=== PATIENT | female | born 1940 | race Two or more races ===

== ENCOUNTER → 2017-02-13 | Outpatient (CLI) | payer OTHER ==
[~2017-02-13] MED LIST: LISIPOW XX; PANT1INJ3 PO; SUCR1TAB36 PO
[2017-02-13 09:38] LABS: Basophils # (auto) 0 uL; Basophils % (auto) 0.7 % (0.0-2.0); Eosinophils # (auto) 0.1 uL; Eosinophils % (auto) 2.9 % (0.0-7.0); Hematocrit 37.5 % (36.0-46.0); Hemoglobin 12.6 g/dL (12.2-16.2); Lymphocytes # (auto) 2.3 uL; Lymphocytes % (auto) 45.8 % (10.0-50.0); Mean Corpuscular Hemoglobin 31.6 pg (28.0-32.0); Mean Corpuscular Hgb Conc. 33.7 g/dL (32.0-36.0); Mean Corpuscular Volume 93.9 fL (80.0-100.0); Monocytes # (auto) 0.4 uL; Neutrophils # (auto) 2.2 uL; Neutrophils % (auto) 43.6 % (37.0-80.0); Platelet Count (auto) 271 10^3/uL (140-450); Red Cell Distribution Width 12.9 % (11.6-16.0)
[2017-02-13 09:45] LABS: Urine Bilirubin Negative (Negative); Urine Blood Negative /uL (Negative); Urine Color Yellow (Yellow); Urine Glucose Normal (Normal); Urine Ketone Negative (Negative); Urine Nitrite Negative (Negative); Urine RBC <1 /hpf (0 - 4); Urine Urobilinogen Normal (Negative); Urine pH 7.5 (5.0-8.0)
[2017-02-13 10:14] LABS: Albumin 3.8 g/dL (3.4-5.0); Bilirubin, Total 0.4 mg/dL (0.2-1.0); Calcium 9.2 mg/dL (8.5-10.1); Potassium 3.9 mmol/L (3.5-5.1); Total Protein 7.7 g/dL (6.4-8.2)
== END | disposition home or self-care (01) ==
LOC: LAB 08:52
PROVIDERS: ATTEND Internal Medicine
DX: R73.03 Prediabetes (principal); I10 Essential (primary) hypertension
CPT/HCPCS: 36415; 80053; 80061; 81001; 82043; 82607; 83036; 84439; 84443; 85025; 85652

== ENCOUNTER 2017-03-08 06:10 | Day surgery (SDC) | payer OTHER ==
[2017-03-03 09:56] LABS: Urine RBC None Seen /hpf (0 - 4)
[2017-03-03 10:01] LABS: Basophils # (auto) 0 uL; Basophils % (auto) 0.7 % (0.0-2.0); Eosinophils # (auto) 0.1 uL; Eosinophils % (auto) 1.4 % (0.0-7.0); Hematocrit 38.5 % (36.0-46.0); Lymphocytes # (auto) 1.8 uL; Lymphocytes % (auto) 32.5 % (10.0-50.0); Mean Corpuscular Hemoglobin 31.4 pg (28.0-32.0); Mean Corpuscular Hgb Conc. 33.8 g/dL (32.0-36.0); Mean Platelet Volume 8.6 fL (7.4-10.4); Monocytes # (auto) 0.4 uL; Monocytes % (auto) 6.2 % (0.0-12.0); Neutrophils # (auto) 3.4 uL; Neutrophils % (auto) 59.2 % (37.0-80.0); Platelet Count (auto) 296 10^3/uL (140-450); Red Cell Distribution Width 12.5 % (11.6-16.0); White Blood Cell 5.7 10^3/uL (4.4-10.8)
[2017-03-03 10:14] LABS: Urine Bilirubin Negative (Negative); Urine Blood Negative /uL (Negative); Urine Color Yellow (Yellow); Urine Glucose Normal (Normal); Urine Ketone Negative (Negative); Urine Nitrite Negative (Negative); Urine Squamous Epithelial Cell FEW /hpf (<5); Urine Urobilinogen Normal (Negative)
[2017-03-03 10:15] LABS: INR 0.94 (0.9-1.15); Partial Thromboplastin Time 27.3 sec (22.64-33.71); Prothrombin Time 10.2 sec (9.37-12.3)
[2017-03-03 10:24] LABS: BUN/Creatinine Ratio 22.4; Bilirubin, Total 0.5 mg/dL (0.2-1.0); Calcium 9.2 mg/dL (8.5-10.1); Potassium 3.9 mmol/L (3.5-5.1)
[~2017-03-08] VITALS: Ht 157.5 cm; Wt 64.4 kg
[~2017-03-08 06:10] MED LIST changes: +CARB25TA22 PO; +LISI-706 PO; -LISIPOW XX; +OMEP20CA74 OR; -PANT1INJ3 PO; -SUCR1TAB36 PO
[2017-03-08] MEDS ORDERED: BUPIVACAINE 0.75% INJ 10ML MPV SDV IJ ONE (06:51)
[2017-03-08] MEDS ORDERED: NEOMYCIN-BACITRACIN-POLYM 15GM TOP OINT TOP ONE (06:52)
[2017-03-08] MEDS ORDERED: ROPIVACAINE 0.5% (5MG/ML) 20ML AMPULE IJ ONE (06:52)
[2017-03-08] MEDS ORDERED: methylPREDNISolone ACETATE 80 MG/ML VL ONE (06:52)
[2017-03-08] MEDS ORDERED: ONDANSETRON HCL 4 MG/2 ML VIAL ONE (06:53)
[2017-03-08] MEDS ORDERED: PROPOFOL 10 MG/ML 20 ML IV ONE (06:53)
[2017-03-08] MEDS ORDERED: fentaNYL CITRATE 100 MCG/2 ML VL ONE (06:53)
[2017-03-08] MEDS ORDERED: MIDAZOLAM HCL 1MG/1ML-2 ML VIAL ONE (06:53)
[2017-03-08] MEDS ORDERED: SODIUM CHLORIDE LOCK 20 ML ONE (06:53)
[2017-03-08] MEDS ORDERED: ceFAZolin 1GM/50ML D5W 50 ML IV ONE (07:13)
[2017-03-08] MEDS ORDERED: ONDANSETRON HCL 4 MG/2 ML VIAL IV ONE (07:15)
[2017-03-08] MEDS ORDERED: KETOROLAC TROMETH 30 MG/ML 1ML VIAL IV ONE (07:15)
[2017-03-08 08:32] VITALS: BP 163/81
== END 2017-03-08 08:42 | disposition home or self-care (01) ==
LOC: SUR 06:10
PROVIDERS: ATTEND Podiatrist Foot & Ankle Surgery
DX: D21.21 Benign neoplasm of connective and other soft tissue of right lower limb, including hip (principal); K21.9 Gastro-esophageal reflux disease without esophagitis; Z90.710 Acquired absence of both cervix and uterus; I10 Essential (primary) hypertension; G20 Parkinson's disease
CPT/HCPCS: 27619; 36415; 80053; 81001; 85025; 85610; 85730; 88305; 88341; 88342; 88360; J0690; J2250; J2405; J2704; J3010; J3490; L3260; Q4139

== ENCOUNTER → 2017-07-05 | Outpatient (CLI) | payer OTHER ==
[2017-07-05 13:50] LABS: Basophils # (auto) 0.1 uL; Basophils % (auto) 0.9 % (0.0-2.0); Eosinophils # (auto) 0.1 uL; Eosinophils % (auto) 1.2 % (0.0-7.0); Hematocrit 37.3 % (36.0-46.0); Hemoglobin 12.9 g/dL (12.2-16.2); Lymphocytes # (auto) 2.3 uL; Lymphocytes % (auto) 38.6 % (10.0-50.0); Mean Corpuscular Hemoglobin 32.9 pg (28.0-32.0); Mean Corpuscular Hgb Conc. 34.6 g/dL (32.0-36.0); Mean Corpuscular Volume 95.1 fL (80.0-100.0); Mean Platelet Volume 7.4 fL (6.9-10.8); Monocytes # (auto) 0.5 uL; Monocytes % (auto) 8.2 % (0.0-12.0); Neutrophils # (auto) 3.1 uL; Neutrophils % (auto) 51.1 % (37.0-80.0); Platelet Count (auto) 282 10^3/uL (140-450); Red Cell Distribution Width 12.4 % (11.8-14.3); White Blood Cell 6.1 10^3/uL (4.4-10.8)
[2017-07-05 14:58] LABS: Albumin 4.2 g/dL (3.4-5.0); BUN/Creatinine Ratio 12.9; Bilirubin, Total 0.5 mg/dL (0.2-1.0); Potassium 3.9 mmol/L (3.5-5.1); Total Protein 8.1 g/dL (6.4-8.2)
== END | disposition home or self-care (01) ==
LOC: LAB 13:34
PROVIDERS: ATTEND Internal Medicine
DX: R10.9 Unspecified abdominal pain (principal)
CPT/HCPCS: 36415; 80053; 85025; 86141

== ENCOUNTER 2017-07-06 13:57 | Emergency (ER) | payer OTHER ==
[~2017-07-06] VITALS: Ht 157.5 cm; Wt 70.3 kg
[2017-07-06] MEDS ORDERED: ONDANSETRON HCL 4 MG/2 ML VIAL IV ONE (14:45)
[2017-07-06 14:53] LABS: Basophils # (auto) 0 uL; Basophils % (auto) 0.4 % (0.0-2.0); Eosinophils # (auto) 0 uL; Eosinophils % (auto) 0.3 % (0.0-7.0); Hematocrit 37.2 % (36.0-46.0); Hemoglobin 13.1 g/dL (12.2-16.2); Lymphocytes # (auto) 1.5 uL; Lymphocytes % (auto) 21.3 % (10.0-50.0); Mean Corpuscular Hgb Conc. 35.3 g/dL (32.0-36.0); Mean Corpuscular Volume 93.6 fL (80.0-100.0); Mean Platelet Volume 8.2 fL (6.9-10.8); Monocytes # (auto) 0.5 uL; Neutrophils # (auto) 5.1 uL; Nucleated Red Blood Cells % 0.1 %; Platelet Count (auto) 290 10^3/uL (140-450); Red Cell Distribution Width 12.5 % (11.8-14.3); White Blood Cell 7.2 10^3/uL (4.4-10.8)
[2017-07-06 14:57] LABS: Albumin 4.1 g/dL (3.4-5.0); Anion Gap 9 (5-15); Aspartate Aminotransferase 26 U/L (15-37); BUN/Creatinine Ratio 17.6; Blood Urea Nitrogen 16 mg/dL (7-18); Calcium 8.9 mg/dL (8.5-10.1); Carbon Dioxide 25 mmol/L (21-32); Chloride 92 mmol/L (98-107); GFR African American 77 mL/min; GFR Non-African American 64 mL/min; Glucose 104 mg/dL (74-106); Potassium 3.9 mmol/L (3.5-5.1); Sodium 126 mmol/L (136-145)
[2017-07-06 15:02] LABS: Alkaline Phosphatase 78 U/L (45-117); Bilirubin, Total 0.4 mg/dL (0.2-1.0)
[2017-07-06 15:18] LABS: Urine Bilirubin Negative (Negative); Urine Blood Negative /uL (Negative); Urine Color Yellow (Yellow); Urine Glucose Normal (Normal); Urine Ketone Negative (Negative); Urine Nitrite Negative (Negative); Urine RBC 1 /hpf (0 - 4); Urine Squamous Epithelial Cell FEW /hpf (<5); Urine Urobilinogen Normal (Negative)
[2017-07-06] MEDS ORDERED: SODIUM CHLORIDE 0.9% 1,000 ML IV ONE (15:30)
[2017-07-06] MEDS ORDERED: PANTOPRAZOLE 40 MG/10 ML VIAL IV ONE (16:30)
[2017-07-06 17:00] VITALS: BP 149/75
[2017-07-09] MEDS ORDERED: ATOR10TA52 PO (19:35)
[2017-07-10] MEDS ORDERED: OMEG1CAP59 PO (14:26)
[2017-07-10] MEDS ORDERED: MULT-228 PO (14:26)
== END 2017-07-06 16:37 | disposition home or self-care (01) ==
LOC: ER 13:57
DX: K21.9 Gastro-esophageal reflux disease without esophagitis (principal); I10 Essential (primary) hypertension; Z88.2 Allergy status to sulfonamides; Z88.6 Allergy status to analgesic agent; Z90.710 Acquired absence of both cervix and uterus; Z90.89 Acquired absence of other organs
CPT/HCPCS: 36415; 74176; 80053; 81001; 83735; 84484; 85025; 93005; 96361; 96374; 96375; 99285; C9113; J2405; J7030

== ENCOUNTER → 2017-07-28 | Outpatient (CLI) | payer OTHER ==
[~2017-07-28] MED LIST changes: +AMI200T PO; +AML5T PO; +ATOR10TA52 PO; +METO10TA3 PO; +MULT-228 PO; +OMEG1CAP59 PO; +RIVA20TA PO
[2017-07-28 08:28] LABS: BUN/Creatinine Ratio 19.4; Calcium 9.2 mg/dL (8.5-10.1); Potassium 4.3 mmol/L (3.5-5.1)
== END | disposition home or self-care (01) ==
LOC: LAB 07:55
PROVIDERS: ATTEND Internal Medicine
DX: E87.6 Hypokalemia (principal); E87.1 Hypo-osmolality and hyponatremia; E78.6 Lipoprotein deficiency
CPT/HCPCS: 36415; 80048

== ENCOUNTER → 2017-08-16 | Outpatient (CLI) | payer OTHER ==
[2017-08-16 08:07] LABS: Basophils # (auto) 0.1 uL; Basophils % (auto) 0.9 % (0.0-2.0); Eosinophils # (auto) 0 uL; Eosinophils % (auto) 0.7 % (0.0-7.0); Hemoglobin 12.5 g/dL (12.2-16.2); Lymphocytes # (auto) 2.1 uL; Lymphocytes % (auto) 35.7 % (10.0-50.0); Mean Corpuscular Hemoglobin 32.2 pg (28.0-32.0); Mean Corpuscular Hgb Conc. 34.9 g/dL (32.0-36.0); Mean Corpuscular Volume 92.5 fL (80.0-100.0); Mean Platelet Volume 6.8 fL (6.9-10.8); Monocytes # (auto) 0.8 uL; Monocytes % (auto) 14.4 % (0.0-12.0); Neutrophils # (auto) 2.8 uL; Neutrophils % (auto) 48.3 % (37.0-80.0); Nucleated Red Blood Cells % 0.2 %; Platelet Count (auto) 320 10^3/uL (140-450); Red Cell Distribution Width 12.8 % (11.8-14.3); White Blood Cell 5.9 10^3/uL (4.4-10.8)
[2017-08-16 08:38] LABS: Albumin 4.1 g/dL (3.4-5.0); BUN/Creatinine Ratio 14.6; Bilirubin, Total 0.6 mg/dL (0.2-1.0); Calcium 9.1 mg/dL (8.5-10.1); Magnesium 2.2 mg/dL (1.6-2.6); Potassium 3.5 mmol/L (3.5-5.1); Total Protein 7.9 g/dL (6.4-8.2)
== END | disposition home or self-care (01) ==
LOC: LAB 07:44
PROVIDERS: ATTEND Internal Medicine
DX: I10 Essential (primary) hypertension (principal); R42 Dizziness and giddiness
CPT/HCPCS: 36415; 80053; 83735; 85025

== ENCOUNTER → 2017-09-05 | Outpatient (CLI) | payer OTHER | END | disposition home or self-care (01) | LOC: LAB 08:36 | PROVIDERS: ATTEND Physician Assistant | DX: L91.8 Other hypertrophic disorders of the skin (principal) ==

== ENCOUNTER → 2017-09-18 | Outpatient (CLI) | payer OTHER | END | disposition home or self-care (01) | LOC: LAB 15:27 | PROVIDERS: ATTEND Internal Medicine | DX: R30.0 Dysuria (principal) | CPT/HCPCS: 87086 ==

== ENCOUNTER → 2017-11-01 | Outpatient (CLI) | payer OTHER ==
[~2017-11-01] MED LIST changes: +ALPR0.25 PO; +AMIO200T33 PO; +ASPI81TA27 PO; +CARB25TA23 PO; +RANO500T PO
== END | disposition home or self-care (01) ==
LOC: LAB 14:50
PROVIDERS: ATTEND Urology
DX: N39.0 Urinary tract infection, site not specified (principal)
CPT/HCPCS: 87086

== ENCOUNTER 2017-11-09 22:24 | Inpatient (IN) | payer OTHER ==
[~2017-11-09] VITALS: Ht 157.5 cm; Wt 61.6 kg
[~2017-11-09 22:24] MED LIST changes: -ALPR0.25 PO; -AMIO200T33 PO; -ASPI81TA27 PO; -CARB25TA23 PO; -RANO500T PO
[2017-11-10 01:56] LABS: Basophils # (auto) 0.1 uL; Basophils % (auto) 0.8 % (0.0-2.0); Eosinophils # (auto) 0.1 uL; Eosinophils % (auto) 1.2 % (0.0-7.0); Hematocrit 42.1 % (36.0-46.0); Hemoglobin 14.3 g/dL (12.2-16.2); Lymphocytes # (auto) 1.8 uL; Lymphocytes % (auto) 28.6 % (10.0-50.0); Mean Corpuscular Hemoglobin 32.2 pg (28.0-32.0); Mean Corpuscular Volume 94.8 fL (80.0-100.0); Monocytes # (auto) 0.5 uL; Monocytes % (auto) 8.3 % (0.0-12.0); Neutrophils # (auto) 3.9 uL; Neutrophils % (auto) 61.1 % (37.0-80.0); Nucleated Red Blood Cells % 0.1 %; Platelet Count (auto) 363 10^3/uL (140-450); Red Blood Cells 4.44 10^6/uL (4.0-5.20); White Blood Cell 6.5 10^3/uL (4.4-10.8)
[2017-11-10 06:24] LABS: Albumin 4.4 g/dL (3.4-5.0); BUN/Creatinine Ratio 15.5; Bilirubin, Total 0.5 mg/dL (0.2-1.0); Calcium 9.3 mg/dL (8.5-10.1); Magnesium 2.6 mg/dL (1.6-2.6); Total Protein 8.6 g/dL (6.4-8.2)
[2017-11-10] MEDS ORDERED: ASPirin 81 mg TAB PO ONE (07:00)
[2017-11-10] MEDS ORDERED: SODIUM CHLORIDE 0.9% 1,000 ML IV SCH (08:02)
[2017-11-10] MEDS ORDERED: PROMETHAZINE HCL 25 MG/ML 1ML IV PRN (08:15)
[2017-11-10] MEDS ORDERED: HYDROcodone-ACET 5/325MG TAB PO PRN (08:15)
[2017-11-10] MEDS ORDERED: NITROGLYCERIN 0.4 MG SL TAB SL PRN (08:15)
[2017-11-10] MEDS ORDERED: ACETAMINOPHEN 500 MG TAB PO PRN (08:15)
[2017-11-10] MEDS ORDERED: TEMAZEPAM 15 MG CAP PO PRN (08:15)
[2017-11-10] MEDS ORDERED: LACTULOSE 20Gm/30ML SOLN PO PRN (08:15)
[2017-11-10] MEDS ORDERED: LORazepam 0.5 MG TAB PO PRN (08:15)
[2017-11-10 08:51] VITALS: BP 158/78
[2017-11-10 09:47] LABS: INR 0.95 (0.9-1.15); Partial Thromboplastin Time 27.6 sec (22.64-33.71); Prothrombin Time 10.4 sec (9.37-12.3)
[2017-11-10] MEDS ORDERED: ENOXAPARIN SOD 40 MG/0.4 ML SYRINGE SC SCH (10:00)
[2017-11-10] MEDS ORDERED: PATIENTS OWN MEDICATION (Atorvastatin Calcium 1 TAB) PO SCH (10:00)
[2017-11-10] MEDS ORDERED: amLODIPine BESYLATE 5 MG TAB PO SCH (10:00)
[2017-11-10] MEDS ORDERED: OMEGA PO SCH (10:00)
[2017-11-10] MEDS ORDERED: ASPirin 81 mg TAB PO SCH (10:00)
[2017-11-10] MEDS ORDERED: LISINOPRIL 20 MG TAB PO SCH (10:00)
[2017-11-10] MEDS ORDERED: PANTOPRAZOLE 40 MG TAB PO SCH (10:00)
[2017-11-10] MEDS ORDERED: PATIENTS OWN MEDICATION (Rivaroxaban (Xarelto) 1 TAB) PO SCH (10:00)
[2017-11-10] MEDS ORDERED: FATTY ACIDS PO SCH (10:00)
[2017-11-10] MEDS ORDERED: OMEPRAZOLE 20MG/10ML ORAL SUSP PO SCH (10:00)
[2017-11-10] MEDS ORDERED: METOPROLOL TARTRATE 25 MG TAB PO SCH (10:00)
[2017-11-10] MEDS ORDERED: AMIODARONE HCL 200 MG TAB PO SCH (10:00)
[2017-11-10] MEDS ORDERED: HCTZ 25 MG TAB PO SCH (10:00)
[2017-11-10] MEDS ORDERED: PATIENTS OWN MEDICATION (Lisinopril & Hydrochlorothiazi (Zestoretic 20-12.5 mg) 1 TAB) PO SCH (10:00)
[2017-11-10] MEDS ORDERED: NITROGLYCERIN 0.2MG/HR TOPICAL PATCH TD SCH (10:00)
[2017-11-10 13:10] VITALS: BP 122/66
[2017-11-10] MEDS ORDERED: CARBIDOPA W LEVODOPA 25/100mg TABLET PO SCH (14:00)
[2017-11-10] MEDS ORDERED: PATIENTS OWN MEDICATION (Carbidopa-Levodopa (Carbidopa/Levodopa Odt 25-100 mg) 1 TAB) PO SCH (14:00)
[2017-11-10] MEDS ORDERED: RANO500T PO (15:00)
[2017-11-10 17:09] VITALS: BP 123/66
[2017-11-10] MEDS ORDERED: RIVAROXABAN 20 MG TAB PO SCH (18:00)
[2017-11-10] MEDS ORDERED: ATORVASTATIN 20 MG TAB PO SCH (22:00)
[2017-11-10] MEDS ORDERED: RANOLAZINE ER 500 MG TAB PO SCH (22:00)
[2018-01-18] MEDS ORDERED: CARB25TA23 PO (11:34)
[2018-01-18] MEDS ORDERED: AMIO200T33 PO (11:34)
[2018-01-18] MEDS ORDERED: ALPR0.25 PO (11:34)
[2018-01-18] MEDS ORDERED: ASPI81TA27 PO (11:34)
== END 2017-11-10 18:52 | disposition home or self-care (01) | DRG 313 ==
LOC: ER 22:24 → TELE 22:25 → TELE-CENTR 11-10 13:16
PROVIDERS: ADMIT Internal Medicine; ATTEND Internal Medicine
DX: R07.89 Other chest pain (principal); I25.2 Old myocardial infarction; N17.0 Acute kidney failure with tubular necrosis; G20 Parkinson's disease; I48.0 Paroxysmal atrial fibrillation; K31.84 Gastroparesis; I49.5 Sick sinus syndrome; E78.5 Hyperlipidemia, unspecified; F32.9 Major depressive disorder, single episode, unspecified; F41.9 Anxiety disorder, unspecified; I12.9 Hypertensive chronic kidney disease with stage 1 through stage 4 chronic kidney disease, or unspecified chronic kidney disease; K21.9 Gastro-esophageal reflux disease without esophagitis; K59.00 Constipation, unspecified; N18.9 Chronic kidney disease, unspecified; G47.00 Insomnia, unspecified; Z82.49 Family history of ischemic heart disease and other diseases of the circulatory system; Z83.3 Family history of diabetes mellitus; Z90.710 Acquired absence of both cervix and uterus; Z90.89 Acquired absence of other organs; Z88.6 Allergy status to analgesic agent; Z88.5 Allergy status to narcotic agent; Z88.2 Allergy status to sulfonamides; Z79.899 Other long term (current) drug therapy
CPT/HCPCS: 36415; 71045; 80053; 82550; 83735; 83880; 84484; 85025; 85379; 85610; 85652; 85730; 86141; 93005; 94761; 96360

== ENCOUNTER → 2017-12-25 | Outpatient (CLI) | payer OTHER ==
[~2017-12-25] MED LIST changes: +ALPR0.25 PO; +AMIO200T33 PO; +ASPI81TA27 PO; +CARB25TA23 PO; -LISI-706 PO; -MULT-228 PO; +RANO500T PO
[2017-12-25 09:20] LABS: Cholesterol 173 mg/dL (< 200); HDL Cholesterol 96 mg/dL (40-59); LDL Cholesterol 68 mg/dL (< 100); Triglycerides 118 mg/dL (< 150)
== END | disposition home or self-care (01) ==
LOC: LAB 08:12
PROVIDERS: ATTEND Internal Medicine
DX: I10 Essential (primary) hypertension (principal); E78.00 Pure hypercholesterolemia, unspecified
CPT/HCPCS: 36415; 80061; 84439; 84443

== ENCOUNTER → 2018-01-22 | Day surgery (SDC) | payer OTHER ==
[2018-01-18 12:26] LABS: Basophils # (auto) 0 uL; Basophils % (auto) 0.8 % (0.0-2.0); Eosinophils # (auto) 0.1 uL; Eosinophils % (auto) 1.3 % (0.0-7.0); Hematocrit 39.9 % (36.0-46.0); Hemoglobin 13.2 g/dL (12.2-16.2); Lymphocytes # (auto) 1.6 uL; Mean Corpuscular Hemoglobin 31.9 pg (28.0-32.0); Mean Corpuscular Hgb Conc. 33.1 g/dL (32.0-36.0); Mean Corpuscular Volume 96.2 fL (80.0-100.0); Monocytes # (auto) 0.4 uL; Neutrophils # (auto) 3.9 uL; Neutrophils % (auto) 64.9 % (37.0-80.0); Nucleated Red Blood Cells % 0.1 %; Platelet Count (auto) 297 10^3/uL (140-450); Red Blood Cells 4.14 10^6/uL (4.0-5.20); Red Cell Distribution Width 14.3 % (11.8-14.3)
[2018-01-18 12:29] LABS: Urine Bacteria NONE SEEN /hpf (None Seen); Urine Blood Negative /uL (Negative); Urine Mucus FEW (None Seen); Urine Specific Gravity 1.016 (1.001-1.035); Urine WBC <1 /hpf (0 - 5)
[2018-01-18 12:42] LABS: INR 0.95 (0.9-1.15); Prothrombin Time 10.3 sec (9.37-12.3)
[2018-01-18 12:43] LABS: Albumin 4.3 g/dL (3.4-5.0); BUN/Creatinine Ratio 21.9; Calcium 8.9 mg/dL (8.5-10.1); Potassium 3.8 mmol/L (3.5-5.1)
[2018-01-18 12:46] LABS: Bilirubin, Total 0.4 mg/dL (0.2-1.0)
[~2018-01-22] VITALS: Ht 157.5 cm; Wt 62.6 kg
[~2018-01-22] MED LIST changes: -AMI200T PO; +BUPIVACAINE 0.25% INJ 50ML VIAL ONE; +BUPIVACAINE W/ EPINEPH 0.25% INJ 50ML MDV ONE; -CARB25TA22 PO; +CONJ ESTROGENS 0.625MG/GM VAG CRM 30GM PV ONE; +DEXAMETHASONE SOD PHOS 10MG/1ML VIAL INJ ONE; +KETOROLAC TROMETH 30 MG/ML 1ML VIAL IV ONE; +KETOROLAC TROMETH 30 MG/ML 1ML VIAL ONE; +LABETALOL HCL 5 MG/ML 4ML SYRINGE IV PRN; +LIDOCAINE W/ EPINEPHRINE 2% INJ 20ML VIAL ONE; +MEPERIDINE HCL (50 MG/ML) 1 ML VIAL ONE; -METO10TA3 PO; +MIDAZOLAM HCL 1MG/1ML-2 ML VIAL IV PRN; +MIDAZOLAM HCL 1MG/1ML-2 ML VIAL ONE; -OMEG1CAP59 PO; +ONDANSETRON HCL 4 MG/2 ML VIAL IV ONE; +ONDANSETRON HCL 4 MG/2 ML VIAL ONE; +PROPOFOL 10 MG/ML 20 ML IV ONE; -RANO500T PO; -RIVA20TA PO; +ceFAZolin 1GM VL ONE; +ceFAZolin 1GM/50ML 50 ML IV ONE; +ePHEDrine SULFATE 50 MG/ML AMP IV PRN; +fentaNYL CITRATE 100 MCG/2 ML VL IV ONE; +fentaNYL CITRATE 100 MCG/2 ML VL ONE
[2018-01-22 10:45] VITALS: BP 127/48
== END | disposition home or self-care (01) ==
LOC: SUR 06:00
PROVIDERS: ATTEND Urology
DX: N81.6 Rectocele (principal); N81.10 Cystocele, unspecified; Z90.710 Acquired absence of both cervix and uterus; Z88.6 Allergy status to analgesic agent; Z88.2 Allergy status to sulfonamides; I10 Essential (primary) hypertension; I48.91 Unspecified atrial fibrillation; Z79.01 Long term (current) use of anticoagulants; K21.9 Gastro-esophageal reflux disease without esophagitis; F32.9 Major depressive disorder, single episode, unspecified; I25.119 Atherosclerotic heart disease of native coronary artery with unspecified angina pectoris
CPT/HCPCS: 36415; 45560; 57282; 80053; 81001; 85025; 85610; 85730; J0690; J1100; J1885; J2175; J2250; J2405; J2704; J3010; J7030; J3490

== ENCOUNTER → 2018-02-15 | Outpatient (CLI) | payer OTHER ==
[~2018-02-15] MED LIST changes: -BUPIVACAINE 0.25% INJ 50ML VIAL ONE; -BUPIVACAINE W/ EPINEPH 0.25% INJ 50ML MDV ONE; -CONJ ESTROGENS 0.625MG/GM VAG CRM 30GM PV ONE; -DEXAMETHASONE SOD PHOS 10MG/1ML VIAL INJ ONE; -KETOROLAC TROMETH 30 MG/ML 1ML VIAL IV ONE; -KETOROLAC TROMETH 30 MG/ML 1ML VIAL ONE; -LABETALOL HCL 5 MG/ML 4ML SYRINGE IV PRN; -LIDOCAINE W/ EPINEPHRINE 2% INJ 20ML VIAL ONE; -MEPERIDINE HCL (50 MG/ML) 1 ML VIAL ONE; -MIDAZOLAM HCL 1MG/1ML-2 ML VIAL IV PRN; -MIDAZOLAM HCL 1MG/1ML-2 ML VIAL ONE; -ONDANSETRON HCL 4 MG/2 ML VIAL IV ONE; -ONDANSETRON HCL 4 MG/2 ML VIAL ONE; -PROPOFOL 10 MG/ML 20 ML IV ONE; -ceFAZolin 1GM VL ONE; -ceFAZolin 1GM/50ML 50 ML IV ONE; -ePHEDrine SULFATE 50 MG/ML AMP IV PRN; -fentaNYL CITRATE 100 MCG/2 ML VL IV ONE; -fentaNYL CITRATE 100 MCG/2 ML VL ONE
== END | disposition home or self-care (01) ==
LOC: LAB 13:31
PROVIDERS: ATTEND Urology
DX: N81.10 Cystocele, unspecified (principal); I48.91 Unspecified atrial fibrillation; E78.00 Pure hypercholesterolemia, unspecified; I12.9 Hypertensive chronic kidney disease with stage 1 through stage 4 chronic kidney disease, or unspecified chronic kidney disease; N18.9 Chronic kidney disease, unspecified; Z79.899 Other long term (current) drug therapy; Z79.01 Long term (current) use of anticoagulants
CPT/HCPCS: 87086

== ENCOUNTER 2018-02-19 15:46 | Emergency (ER) | payer OTHER ==
[~2018-02-19] VITALS: Ht 154.9 cm; Wt 60.8 kg
[2018-02-19] MEDS ORDERED: ASPirin 81 mg TAB PO ONE (16:15)
[2018-02-19 16:32] LABS: Basophils # (auto) 0.1 uL; Basophils % (auto) 0.9 % (0.0-2.0); Eosinophils # (auto) 0 uL; Eosinophils % (auto) 0.5 % (0.0-7.0); Hematocrit 39.6 % (36.0-46.0); Hemoglobin 13.3 g/dL (12.2-16.2); Lymphocytes # (auto) 1.3 uL; Lymphocytes % (auto) 22.5 % (10.0-50.0); Mean Corpuscular Hemoglobin 32.8 pg (28.0-32.0); Mean Corpuscular Hgb Conc. 33.7 g/dL (32.0-36.0); Mean Corpuscular Volume 97.5 fL (80.0-100.0); Monocytes # (auto) 0.5 uL; Monocytes % (auto) 8.4 % (0.0-12.0); Neutrophils % (auto) 67.7 % (37.0-80.0); Platelet Count (auto) 307 10^3/uL (140-450); Red Blood Cells 4.07 10^6/uL (4.0-5.20); Red Cell Distribution Width 14.6 % (11.8-14.3)
[2018-02-19 16:36] LABS: Urine Bacteria NONE SEEN /hpf (None Seen); Urine Blood Negative /uL (Negative); Urine Specific Gravity 1.005 (1.001-1.035); Urine WBC 17 /hpf (0 - 5)
[2018-02-19 16:46] LABS: INR 0.94 (0.9-1.15); Partial Thromboplastin Time 27.3 sec (22.64-33.71); Prothrombin Time 10.2 sec (9.37-12.3)
[2018-02-19 16:52] LABS: Alanine Aminotransferase 31 U/L (13-56); Albumin 4.7 g/dL (3.4-5.0); Alkaline Phosphatase 89 U/L (45-117); Anion Gap 11 (5-15); Aspartate Aminotransferase 27 U/L (15-37); BUN/Creatinine Ratio 16.8; Bilirubin, Total 0.5 mg/dL (0.2-1.0); Blood Urea Nitrogen 19 mg/dL (7-18); Carbon Dioxide 27 mmol/L (21-32); Chloride 96 mmol/L (98-107); GFR African American 60 mL/min; GFR Non-African American 50 mL/min; Glucose 99 mg/dL (74-106); Magnesium 2.7 mg/dL (1.6-2.6); Potassium 3.9 mmol/L (3.5-5.1); Sodium 134 mmol/L (136-145); Total Protein 8.7 g/dL (6.4-8.2)
[2018-02-19 19:47] VITALS: BP 142/78
== END 2018-02-19 19:50 | disposition home or self-care (01) ==
LOC: ER 15:46
DX: R07.89 Other chest pain (principal); N39.0 Urinary tract infection, site not specified; K21.9 Gastro-esophageal reflux disease without esophagitis; I10 Essential (primary) hypertension; I25.2 Old myocardial infarction; Z88.2 Allergy status to sulfonamides; Z88.6 Allergy status to analgesic agent; Z88.1 Allergy status to other antibiotic agents
CPT/HCPCS: 36415; 71046; 80053; 81001; 83735; 84484; 85025; 85610; 85730; 93005; 94761

== ENCOUNTER → 2018-04-04 | Outpatient (CLI) | payer OTHER ==
[~2018-04-04] VITALS: Ht 157.5 cm; Wt 59.0 kg
[~2018-04-04] MED LIST changes: +ADENOSINE 50 MG in GIVE UN-DILUTED 0 ML IV ONE
[2018-04-04 10:28] VITALS: BP 70/57
== END | disposition home or self-care (01) ==
LOC: XY 09:09
PROVIDERS: ATTEND Internal Medicine Cardiovascular Disease
DX: R07.89 Other chest pain (principal); K21.9 Gastro-esophageal reflux disease without esophagitis; I12.9 Hypertensive chronic kidney disease with stage 1 through stage 4 chronic kidney disease, or unspecified chronic kidney disease; N18.9 Chronic kidney disease, unspecified; E78.00 Pure hypercholesterolemia, unspecified; Z79.01 Long term (current) use of anticoagulants
CPT/HCPCS: 78452; 93017; A9500; J0153

== ENCOUNTER → 2018-06-07 | Outpatient (CLI) | payer OTHER ==
[~2018-06-07] MED LIST changes: -ADENOSINE 50 MG in GIVE UN-DILUTED 0 ML IV ONE
== END | disposition home or self-care (01) ==
LOC: LAB 14:18
PROVIDERS: ATTEND Urology
DX: N39.0 Urinary tract infection, site not specified (principal)
CPT/HCPCS: 87086

== ENCOUNTER → 2018-07-04 | Outpatient (CLI) | payer OTHER ==
[2018-07-04 10:16] LABS: Basophils # (auto) 0 uL; Basophils % (auto) 0.8 % (0.0-2.0); Eosinophils # (auto) 0.1 uL; Eosinophils % (auto) 2.4 % (0.0-7.0); Hematocrit 40.6 % (36.0-46.0); Hemoglobin 13.8 g/dL (12.2-16.2); Lymphocytes # (auto) 1.9 uL; Mean Corpuscular Hemoglobin 33.2 pg (28.0-32.0); Mean Corpuscular Hgb Conc. 34.1 g/dL (32.0-36.0); Mean Corpuscular Volume 97.5 fL (80.0-100.0); Monocytes # (auto) 0.4 uL; Monocytes % (auto) 7.9 % (0.0-12.0); Neutrophils # (auto) 2.5 uL; Neutrophils % (auto) 50.9 % (37.0-80.0); Nucleated Red Blood Cells % 0.1 %; Platelet Count (auto) 250 10^3/uL (140-450); Red Blood Cells 4.17 10^6/uL (4.0-5.20); Red Cell Distribution Width 13.3 % (11.8-14.3); White Blood Cell 4.9 10^3/uL (4.4-10.8)
[2018-07-04 10:26] LABS: Urine Bacteria FEW /hpf (None Seen); Urine Blood Negative /uL (Negative); Urine Specific Gravity 1.014 (1.001-1.035); Urine WBC 1 /hpf (0 - 5)
[2018-07-04 11:32] LABS: Bilirubin, Total 0.6 mg/dL (0.2-1.0); Potassium 4.5 mmol/L (3.5-5.1); Total Protein 8.1 g/dL (6.4-8.2)
== END | disposition home or self-care (01) ==
LOC: LAB 09:16
PROVIDERS: ATTEND Internal Medicine
DX: Z01.818 Encounter for other preprocedural examination (principal); I10 Essential (primary) hypertension; K21.9 Gastro-esophageal reflux disease without esophagitis
CPT/HCPCS: 36415; 80053; 81001; 84439; 84443; 85025

== ENCOUNTER → 2018-07-31 | Outpatient (CLI) | payer OTHER ==
[2018-07-31 10:46] LABS: Basophils # (auto) 0 uL; Basophils % (auto) 0.5 % (0.0-2.0); Eosinophils # (auto) 0.1 uL; Eosinophils % (auto) 1.4 % (0.0-7.0); Hematocrit 37.1 % (36.0-46.0); Hemoglobin 12.5 g/dL (12.2-16.2); Lymphocytes # (auto) 2.1 uL; Lymphocytes % (auto) 32.1 % (10.0-50.0); Mean Corpuscular Hemoglobin 32.4 pg (28.0-32.0); Mean Corpuscular Hgb Conc. 33.7 g/dL (32.0-36.0); Mean Corpuscular Volume 96.2 fL (80.0-100.0); Monocytes # (auto) 0.4 uL; Monocytes % (auto) 6.5 % (0.0-12.0); Neutrophils # (auto) 3.9 uL; Neutrophils % (auto) 59.5 % (37.0-80.0); Nucleated Red Blood Cells % 0.1 %; Platelet Count (auto) 261 10^3/uL (140-450); Red Blood Cells 3.86 10^6/uL (4.0-5.20); Red Cell Distribution Width 13.3 % (11.8-14.3); Urine Blood Negative /uL (Negative); Urine Specific Gravity 1.015 (1.001-1.035); White Blood Cell 6.5 10^3/uL (4.4-10.8)
[2018-07-31 11:06] LABS: INR 0.94 (0.9-1.15); Partial Thromboplastin Time 25.3 sec (23.78-33.04); Prothrombin Time 10.1 sec (9.27-12.13)
[2018-07-31 12:17] LABS: Potassium 4.1 mmol/L (3.5-5.1)
[2018-07-31 12:22] LABS: Albumin 3.6 g/dL (3.4-5.0); BUN/Creatinine Ratio 29.9; Bilirubin, Total 0.5 mg/dL (0.2-1.0); Calcium 8.3 mg/dL (8.5-10.1)
[2018-07-31 12:37] LABS: Total Protein 7.3 g/dL (6.4-8.2)
== END | disposition home or self-care (01) ==
LOC: LAB 09:49
PROVIDERS: ATTEND Specialist
DX: Z01.812 Encounter for preprocedural laboratory examination (principal); H25.12 Age-related nuclear cataract, left eye; D68.311 Acquired hemophilia; Z79.01 Long term (current) use of anticoagulants
CPT/HCPCS: 36415; 80053; 81003; 85025; 85610; 85730

== ENCOUNTER → 2019-02-15 | Outpatient (CLI) | payer OTHER ==
[2019-02-15 08:39] LABS: Urine Bacteria FEW /hpf (None Seen); Urine Blood Negative /uL (Negative); Urine Mucus FEW (None Seen); Urine Specific Gravity 1.019 (1.001-1.035); Urine WBC 7 /hpf (0 - 5)
[2019-02-15 08:40] LABS: Basophils # (auto) 0 uL; Basophils % (auto) 0.9 % (0.0-2.0); Eosinophils # (auto) 0.2 uL; Eosinophils % (auto) 4.2 % (0.0-7.0); Hematocrit 38.5 % (36.0-46.0); Lymphocytes % (auto) 45.7 % (10.0-50.0); Mean Corpuscular Hemoglobin 32.4 pg (28.0-32.0); Mean Corpuscular Hgb Conc. 33.8 g/dL (32.0-36.0); Mean Corpuscular Volume 96.1 fL (80.0-100.0); Monocytes # (auto) 0.3 uL; Monocytes % (auto) 7.4 % (0.0-12.0); Neutrophils # (auto) 1.8 uL; Neutrophils % (auto) 41.8 % (37.0-80.0); Platelet Count (auto) 287 10^3/uL (140-450); Red Blood Cells 4.01 10^6/uL (4.0-5.20); Red Cell Distribution Width 12.8 % (11.8-14.3); White Blood Cell 4.4 10^3/uL (4.4-10.8)
[2019-02-15 09:00] LABS: Potassium 3.8 mmol/L (3.5-5.1)
[2019-02-15 09:09] LABS: BUN/Creatinine Ratio 21.5; Bilirubin, Total 0.5 mg/dL (0.2-1.0); Calcium 9.1 mg/dL (8.5-10.1); Total Protein 7.6 g/dL (6.4-8.2); Uric Acid 3.4 mg/dL (2.6-6.0)
== END | disposition home or self-care (01) ==
LOC: LAB 07:35
PROVIDERS: ATTEND Internal Medicine
DX: G62.9 Polyneuropathy, unspecified (principal); G20 Parkinson's disease; R73.03 Prediabetes; I10 Essential (primary) hypertension
CPT/HCPCS: 36415; 80053; 80061; 81001; 82043; 83036; 84439; 84443; 84550; 85025; 85652; 87517

== ENCOUNTER → 2019-02-20 | Outpatient (CLI) | payer OTHER ==
[2019-02-20 09:25] LABS: Urine Bacteria NONE SEEN /hpf (None Seen); Urine Blood Negative /uL (Negative); Urine Hyaline Cast FEW /lpf (0 - 2); Urine Mucus FEW (None Seen); Urine WBC 5 /hpf (0 - 5)
== END | disposition home or self-care (01) ==
LOC: LAB 08:15
PROVIDERS: ATTEND Internal Medicine
DX: N39.0 Urinary tract infection, site not specified (principal)
CPT/HCPCS: 81001

== ENCOUNTER → 2019-05-15 | Outpatient (CLI) | payer OTHER ==
[~2019-05-15] MED LIST changes: +ASPI-404 PO; -ASPI81TA27 PO
== END | disposition home or self-care (01) ==
LOC: XYW 10:17
PROVIDERS: ATTEND Internal Medicine
DX: I10 Essential (primary) hypertension (principal)
CPT/HCPCS: 93306

== ENCOUNTER 2019-07-11 17:42 | Emergency (ER) | payer OTHER ==
[~2019-07-11] VITALS: Ht 154.9 cm; Wt 62.6 kg
[2019-07-11 19:22] LABS: Alanine Aminotransferase 11 U/L (13-56); Albumin 4.2 g/dL (3.4-5.0); Anion Gap 8 (5-15); Blood Urea Nitrogen 34 mg/dL (7-18); Calcium 8.7 mg/dL (8.5-10.1); Carbon Dioxide 28 mmol/L (21-32); Chloride 95 mmol/L (98-107); Glucose 112 mg/dL (74-106); Potassium 3.7 mmol/L (3.5-5.1); Sodium 131 mmol/L (136-145)
[2019-07-11 19:27] LABS: Urine Bacteria NONE SEEN /hpf (None Seen); Urine Blood Negative /uL (Negative); Urine Specific Gravity 1.013 (1.001-1.035); Urine WBC 2 /hpf (0 - 5)
[2019-07-11 19:27] LABS: Alkaline Phosphatase 80 U/L (45-117); Aspartate Aminotransferase 24 U/L (15-37); BUN/Creatinine Ratio 31.8; Bilirubin, Total 0.5 mg/dL (0.2-1.0); GFR African American 64 mL/min; GFR Non-African American 53 mL/min; Total Protein 7.8 g/dL (6.4-8.2)
[2019-07-11 19:38] LABS: Basophils # (auto) 0 uL; Basophils % (auto) 0.7 % (0.0-2.0); Eosinophils # (auto) 0.1 uL; Eosinophils % (auto) 1.5 % (0.0-7.0); Hematocrit 37.6 % (36.0-46.0); Hemoglobin 12.8 g/dL (12.2-16.2); Lymphocytes # (auto) 2.3 uL; Lymphocytes % (auto) 36.6 % (10.0-50.0); Mean Corpuscular Hemoglobin 32.8 pg (28.0-32.0); Mean Corpuscular Volume 96.3 fL (80.0-100.0); Monocytes # (auto) 0.5 uL; Monocytes % (auto) 8.7 % (0.0-12.0); Neutrophils # (auto) 3.3 uL; Neutrophils % (auto) 52.5 % (37.0-80.0); Nucleated Red Blood Cells % 0.1 %; Platelet Count (auto) 263 10^3/uL (140-450); Red Cell Distribution Width 13.4 % (11.8-14.3); White Blood Cell 6.3 10^3/uL (4.4-10.8)
[2019-07-11 21:20] LABS: Magnesium 2.2 mg/dL (1.6-2.6)
[2019-07-11 21:41] LABS: INR < 0.93 (0.9-1.15); Partial Thromboplastin Time 27.5 sec (23.64-32.05)
[2019-07-11] MEDS ORDERED: SODIUM CHLORIDE 0.9% 1,000 ML IV ONE (21:45)
[2019-07-11] MEDS ORDERED: cefTRIAXone 1GM/50ML D5W 50 ML IV ONE (21:45)
[2019-07-11 22:26] VITALS: BP 137/50
== END 2019-07-11 23:34 | disposition home or self-care (01) ==
LOC: ER 17:42
DX: E86.0 Dehydration (principal); N39.0 Urinary tract infection, site not specified; J32.9 Chronic sinusitis, unspecified; E78.5 Hyperlipidemia, unspecified; I10 Essential (primary) hypertension; I25.2 Old myocardial infarction; K21.9 Gastro-esophageal reflux disease without esophagitis; Z90.710 Acquired absence of both cervix and uterus; Z90.89 Acquired absence of other organs; Z88.1 Allergy status to other antibiotic agents; Z88.2 Allergy status to sulfonamides; Z88.6 Allergy status to analgesic agent
CPT/HCPCS: 36415; 70450; 71046; 80053; 80061; 81001; 83735; 83880; 84443; 84484; 85025; 85610; 85730; 93005; 96365; 99284; J0696

== ENCOUNTER → 2019-07-19 | Outpatient (CLI) | payer OTHER ==
[2019-07-19 09:45] LABS: Basophils # (auto) 0.1 uL; Basophils % (auto) 1.5 % (0.0-2.0); Eosinophils # (auto) 0.1 uL; Eosinophils % (auto) 2.7 % (0.0-7.0); Hematocrit 35.2 % (36.0-46.0); Hemoglobin 12.4 g/dL (12.2-16.2); Lymphocytes # (auto) 1.7 uL; Lymphocytes % (auto) 40.9 % (10.0-50.0); Mean Corpuscular Hgb Conc. 35.3 g/dL (32.0-36.0); Mean Corpuscular Volume 93.5 fL (80.0-100.0); Monocytes # (auto) 0.5 uL; Neutrophils # (auto) 1.8 uL; Neutrophils % (auto) 43.9 % (37.0-80.0); Platelet Count (auto) 258 10^3/uL (140-450); Red Blood Cells 3.77 10^6/uL (4.0-5.20); Red Cell Distribution Width 12.9 % (11.8-14.3); White Blood Cell 4.1 10^3/uL (4.4-10.8)
[2019-07-19 10:02] LABS: Calcium 8.9 mg/dL (8.5-10.1); Potassium 3.5 mmol/L (3.5-5.1)
[2019-07-19 10:04] LABS: BUN/Creatinine Ratio 27.5; CRP High Sensitivity 0.14 mg/dL (< 0.3)
== END | disposition home or self-care (01) ==
LOC: LAB 09:07
PROVIDERS: ATTEND Internal Medicine
DX: E87.1 Hypo-osmolality and hyponatremia (principal); J32.9 Chronic sinusitis, unspecified; I10 Essential (primary) hypertension; K21.9 Gastro-esophageal reflux disease without esophagitis
CPT/HCPCS: 36415; 80048; 85025; 85652; 86141

== ENCOUNTER → 2019-09-23 | Day surgery (SDC) | payer OTHER ==
[2019-09-16 11:07] LABS: Basophils # (auto) 0 uL; Basophils % (auto) 0.7 % (0.0-2.0); Eosinophils # (auto) 0.1 uL; Eosinophils % (auto) 2.2 % (0.0-7.0); Hematocrit 35.8 % (36.0-46.0); Hemoglobin 12.8 g/dL (12.2-16.2); Lymphocytes # (auto) 1.9 uL; Lymphocytes % (auto) 37.8 % (10.0-50.0); Mean Corpuscular Hemoglobin 33.6 pg (28.0-32.0); Mean Corpuscular Hgb Conc. 35.9 g/dL (32.0-36.0); Mean Corpuscular Volume 93.7 fL (80.0-100.0); Monocytes # (auto) 0.5 uL; Monocytes % (auto) 9.2 % (0.0-12.0); Neutrophils # (auto) 2.5 uL; Neutrophils % (auto) 50.1 % (37.0-80.0); Nucleated Red Blood Cells % 0.1 %; Platelet Count (auto) 298 10^3/uL (140-450); Red Blood Cells 3.82 10^6/uL (4.0-5.20); Red Cell Distribution Width 12.7 % (11.8-14.3); White Blood Cell 4.9 10^3/uL (4.4-10.8)
[2019-09-16 11:13] LABS: Partial Thromboplastin Time 26.5 sec (23.64-32.05)
[~2019-09-23] VITALS: Ht 157.5 cm; Wt 63.0 kg
[~2019-09-23] MED LIST changes: -AMIO200T33 PO; -ATOR10TA52 PO; +HYDR12.56 PO; +LIDOCAINE VISCOUS 2% 15ML UD ONE; +LISI40TA PO; +SODIUM CHLORIDE LOCK 10 ML ONE; +diphenhdrAMINE HCL 50 MG/1 ML VL ONE
[2019-09-23] MEDS: fentaNYL CITRATE 100 MCG/2 ML VL ONE ×2 (09:40→09:43)
[2019-09-23] MEDS: MIDAZOLAM HCL 5 MG/ML-1ML VIAL ONE ×2 (09:40→09:43)
[2019-09-23 10:22] VITALS: BP 143/68
== END | disposition home or self-care (01) ==
LOC: GI 08:25
PROVIDERS: ATTEND Internal Medicine Gastroenterology
DX: K29.50 Unspecified chronic gastritis without bleeding (principal); Z79.899 Other long term (current) drug therapy; Z90.710 Acquired absence of both cervix and uterus; Z98.890 Other specified postprocedural states; Z88.5 Allergy status to narcotic agent; Z88.1 Allergy status to other antibiotic agents; Z79.82 Long term (current) use of aspirin; Z88.2 Allergy status to sulfonamides
CPT/HCPCS: 36415; 43239; 85025; 85610; 85730; 88305; 88342; J1200; J2250; J3010; J7030

== ENCOUNTER → 2019-10-10 | Outpatient (CLI) | payer OTHER ==
[~2019-10-10] MED LIST changes: -LIDOCAINE VISCOUS 2% 15ML UD ONE; -SODIUM CHLORIDE LOCK 10 ML ONE; -diphenhdrAMINE HCL 50 MG/1 ML VL ONE
== END | disposition home or self-care (01) ==
LOC: LAB 09:12
PROVIDERS: ATTEND Internal Medicine
DX: N28.1 Cyst of kidney, acquired (principal)
CPT/HCPCS: 36415; 82565; 84520

== ENCOUNTER → 2019-11-20 | Outpatient (CLI) | payer OTHER | END | disposition home or self-care (01) | LOC: XY 07:25 | PROVIDERS: ATTEND Internal Medicine Gastroenterology | DX: R10.13 Epigastric pain (principal); R11.0 Nausea | CPT/HCPCS: 78226; A9537 ==

== ENCOUNTER → 2020-01-02 | Outpatient (CLI) | payer OTHER ==
[2020-01-02 08:44] LABS: Basophils # (auto) 0 10 ^3/uL (0-0.2); Basophils % (auto) 0.8 % (0.0-2.0); Eosinophils # (auto) 0.1 10 ^3/uL (0-0.8); Eosinophils % (auto) 2.1 % (0.0-7.0); Hematocrit 42.2 % (36.0-46.0); Hemoglobin 14.7 g/dL (12.2-16.2); Lymphocytes # (auto) 2.5 10 ^3/uL (0.4-5.4); Lymphocytes % (auto) 50.6 % (10.0-50.0); Mean Corpuscular Hemoglobin 33.2 pg (28.0-32.0); Mean Corpuscular Hgb Conc. 34.7 g/dL (32.0-36.0); Mean Corpuscular Volume 95.5 fL (80.0-100.0); Monocytes # (auto) 0.5 10 ^3/uL (0-1.3); Monocytes % (auto) 9.6 % (0.0-12.0); Neutrophils # (auto) 1.8 10 ^3/uL (1.6-8.6); Neutrophils % (auto) 36.9 % (37.0-80.0); Nucleated Red Blood Cells % 0.1 %; Platelet Count (auto) 334 10^3/uL (140-450); Red Blood Cells 4.42 10^6/uL (4.0-5.20); Red Cell Distribution Width 13.9 % (11.8-14.3); White Blood Cell 4.9 10^3/uL (4.4-10.8)
[2020-01-02 09:39] LABS: Potassium 3.8 mmol/L (3.5-5.1)
[2020-01-02 09:47] LABS: Albumin 4.5 g/dL (3.4-5.0); BUN/Creatinine Ratio 22.9; Bilirubin, Total 0.7 mg/dL (0.2-1.0); Calcium 9.6 mg/dL (8.5-10.1); Total Protein 8.5 g/dL (6.4-8.2)
== END | disposition home or self-care (01) ==
LOC: LAB 08:03
PROVIDERS: ATTEND Internal Medicine
DX: M25.50 Pain in unspecified joint (principal); R10.9 Unspecified abdominal pain; E87.1 Hypo-osmolality and hyponatremia
CPT/HCPCS: 36415; 80053; 80061; 82150; 82550; 83690; 84439; 84443; 85025; 86235

== ENCOUNTER 2020-04-15 07:09 | Inpatient (IN) | payer OTHER ==
[2020-04-13 16:14] LABS: Basophils # (auto) 0 10 ^3/uL (0-0.2); Basophils % (auto) 0.8 % (0.0-2.0); Eosinophils # (auto) 0 10 ^3/uL (0-0.8); Eosinophils % (auto) 0.5 % (0.0-7.0); Hematocrit 37.7 % (36.0-46.0); Lymphocytes # (auto) 1.9 10 ^3/uL (0.4-5.4); Lymphocytes % (auto) 35.8 % (10.0-50.0); Mean Corpuscular Hemoglobin 33.3 pg (28.0-32.0); Mean Corpuscular Hgb Conc. 34.5 g/dL (32.0-36.0); Mean Corpuscular Volume 96.3 fL (80.0-100.0); Monocytes # (auto) 0.4 10 ^3/uL (0-1.3); Monocytes % (auto) 7.3 % (0.0-12.0); Neutrophils # (auto) 2.9 10 ^3/uL (1.6-8.6); Neutrophils % (auto) 55.6 % (37.0-80.0); Platelet Count (auto) 309 10^3/uL (140-450); Red Blood Cells 3.91 10^6/uL (4.0-5.20); Red Cell Distribution Width 12.3 % (11.8-14.3); White Blood Cell 5.2 10^3/uL (4.4-10.8)
[2020-04-13 16:25] LABS: Albumin 4.1 g/dL (3.4-5.0); Calcium 8.9 mg/dL (8.5-10.1); Potassium 3.9 mmol/L (3.5-5.1)
[2020-04-13 16:29] LABS: Bilirubin, Total 0.5 mg/dL (0.2-1.0)
[2020-04-13 16:33] LABS: INR 0.98 (0.9-1.15); Partial Thromboplastin Time 27.1 sec (23.64-32.05)
[2020-04-13 16:41] LABS: Urine Bacteria NONE SEEN /hpf (None Seen); Urine Blood Negative /uL (Negative); Urine Specific Gravity 1.016 (1.001-1.035); Urine WBC 3 /hpf (0 - 5)
[~2020-04-15] VITALS: Ht 154.9 cm; Wt 61.0 kg
[2020-04-15] MEDS ORDERED: ceFAZolin 1GM/50ML 50 ML IV ONE (08:16)
[2020-04-15] MEDS ORDERED: POVIDONE IODINE 10 % TOPICAL OINT 30GM TOP ONE (09:49)
[2020-04-15] MEDS ORDERED: MEPERIDINE HCL (25 MG/ML) 1ML VIAL ONE ×2 (09:57→11:21)
[2020-04-15] MEDS ORDERED: MIDAZOLAM HCL 1MG/1ML-2 ML VIAL ONE (09:58)
[2020-04-15] MEDS ORDERED: fentaNYL CITRATE 100 MCG/2 ML VL ONE (09:58)
[2020-04-15] MEDS ORDERED: DexAMETHasone SOD PHOS 10MG/1ML VIAL INJ ONE (10:18)
[2020-04-15] MEDS ORDERED: ETOMIDATE (2MG/ML) 20ML VIAL IV ONE (10:18)
[2020-04-15] MEDS ORDERED: MIDAZOLAM HCL 1MG/1ML-2 ML VIAL IV PRN (10:30)
[2020-04-15] MEDS ORDERED: ePHEDrine SULFATE 50 MG/ML AMP IV PRN (10:30)
[2020-04-15] MEDS ORDERED: HYDROmorphone HCL 2 MG/ML VL IV PRN (10:30)
[2020-04-15] MEDS ORDERED: ONDANSETRON HCL 4 MG/2 ML VIAL IV PRN ×2 (10:30→12:00)
[2020-04-15] MEDS ORDERED: LABETALOL HCL 5 MG/ML 4ML SYRINGE IV PRN (10:30)
[2020-04-15] MEDS ORDERED: fentaNYL CITRATE 100 MCG/2 ML VL IV PRN (10:30)
[2020-04-15] MEDS ORDERED: GLYCOPYRROLATE 0.2 MG/ML 1ML VIAL ONE (11:15)
[2020-04-15] MEDS ORDERED: NEOSTIGMINE 1 MG/ML INJ (10mg/10ML VIAL) ONE (11:15)
[2020-04-15] MEDS ORDERED: MEPERIDINE HCL (25 MG/ML) 1ML VIAL IV ONE (11:30)
[2020-04-15] MEDS ORDERED: ACETAMINOPHEN 500 MG TAB PO PRN (12:00)
[2020-04-15] MEDS: SODIUM CHLORIDE 0.9% 1,000 ML IV SCH (12:00)
--- NOTE | 2020-04-15 12:20 | NUR ---
MS admit from PACU SHANIQUEMADHU Rees admitted to [facility] after SBAR received from Clary CORTES. Patient is s/p lap bette with 3 abdominal incisions (upper, medial and right side) which have lebron strips, and tegaderm.Dressing dry and intact. Abdominal binder in place. Patient denies pain at this time. Patient oriented to yoselin AVERY RN, unit, room, bed, and unit policies regarding patient care and visiting hours. Patient weighed by bedscale and encouraged to call if they need something. All questions and concerns addressed, patient verbalized understanding.
[2020-04-15 13:00] VITALS: BP 121/64
[2020-04-15] MEDS ORDERED: CARBIDOPA W LEVODOPA 25/250mg TABLET PO ONE (13:15)
[2020-04-15] MEDS ORDERED: LISINOPRIL 10 MG TAB PO ONE (13:15)
[2020-04-15] MEDS ORDERED: FAMOTIDINE (10MG/ML) 2ML VL IV ONE (13:15)
[2020-04-15] MEDS: traMADol HCL 50 MG TAB PO PRN (13:30)
[2020-04-15 13:31] VITALS: BP 121/64
[2020-04-15] MEDS: ALPRAZolam 0.25 MG TAB PO PRN (16:22)
[2020-04-15 17:00] VITALS: BP 125/72
[2020-04-15] MEDS: MEPERIDINE HCL (25 MG/ML) 1ML VIAL IV PRN (19:48)
[2020-04-15 22:00] VITALS: BP 124/61
[2020-04-15] MEDS: CARBIDOPA W LEVODOPA 25/250mg TABLET PO SCH (22:27)
[2020-04-16] VITALS (7 sets, daily range): BP systolic 122–153; BP diastolic 65–94
[2020-04-16] MEDS: ALPRAZolam 0.25 MG TAB PO PRN ×2 (00:05→11:25)
[2020-04-16] MEDS: MEPERIDINE HCL (25 MG/ML) 1ML VIAL IV PRN (01:28)
[2020-04-16] MEDS: SODIUM CHLORIDE 0.9% 1,000 ML IV SCH ×2 (05:26→14:40)
[2020-04-16 05:58] LABS: Basophils # (auto) 0 10 ^3/uL (0-0.2); Basophils % (auto) 0.1 % (0.0-2.0); Eosinophils # (auto) 0 10 ^3/uL (0-0.8); Hematocrit 34.8 % (36.0-46.0); Lymphocytes # (auto) 0.8 10 ^3/uL (0.4-5.4); Lymphocytes % (auto) 12.8 % (10.0-50.0); Mean Corpuscular Hemoglobin 33.2 pg (28.0-32.0); Mean Corpuscular Hgb Conc. 34.4 g/dL (32.0-36.0); Mean Corpuscular Volume 96.6 fL (80.0-100.0); Monocytes # (auto) 0.3 10 ^3/uL (0-1.3); Monocytes % (auto) 5.7 % (0.0-12.0); Neutrophils % (auto) 81.4 % (37.0-80.0); Platelet Count (auto) 297 10^3/uL (140-450); Red Cell Distribution Width 12.4 % (11.8-14.3); White Blood Cell 6.2 10^3/uL (4.4-10.8)
[2020-04-16 06:13] LABS: Potassium 4.2 mmol/L (3.5-5.1)
[2020-04-16 06:21] LABS: Albumin 3.6 g/dL (3.4-5.0); BUN/Creatinine Ratio 18.7; Bilirubin, Total 0.5 mg/dL (0.2-1.0); Calcium 8.8 mg/dL (8.5-10.1); Total Protein 7.1 g/dL (6.4-8.2)
--- NOTE | 2020-04-16 07:30 | NUR ---
Opening Shift Note Assumed care of patient, A&O x4. Patient out of bed and walking in the hallway. No S/S of distress/SOB or pain. Instructed on POC and to call for assist PRN. Safety measures maintained with call light within reach, bed in lowest position, and side rails up. Will continue to monitor for changes Q1hr and PRN.
[2020-04-16] MEDS ORDERED: FAMOTIDINE (10MG/ML) 2ML VL IV SCH (10:00)
[2020-04-16] MEDS ORDERED: LISINOPRIL 10 MG TAB PO SCH (10:00)
[2020-04-16] MEDS: CARBIDOPA W LEVODOPA 25/250mg TABLET PO SCH (10:37)
--- NOTE | 2020-04-16 13:51 | NUR ---
Med held; Given at later time Lisinopril was held at 1000 for blood pressure at 122/65. Lisinopril given at 1351 for blood pressure at 152/67.
[2020-04-16] MEDS: traMADol HCL 50 MG TAB PO PRN (15:41)
--- NOTE | 2020-04-16 15:44 | NUR ---
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 DIischarge instructions given as ordered. Encourage to follow up with PMD as instructed. All questions and concerns addressed. Verbalized understanding
--- NOTE | 2020-04-16 16:15 | NUR ---
Discharge instructions given as ordered. Encourage to follow up with PMD as instructed. All questions and concerns addressed. Patient verbalized understanding. Medication reconciliation form completed and copy given to patient. IV removed with catheter intact, pressure dressing applied. 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
--- NOTE | 2020-04-16 17:04 | NUR ---
Patient taken to vehicle via wheelchair with all personal belongings, accompanied by staff and family member. No distress noted at time of departure.
== END 2020-04-16 16:38 | disposition home or self-care (01) | DRG 418 ==
LOC: SUR 07:09 → WEST WING 12:25
PROVIDERS: ADMIT Surgery; ATTEND Internal Medicine
PROC: 0DNW4ZZ Release Peritoneum, Percutaneous Endoscopic Approach (ICD-10-PCS; 2020-04-15)
PROC: 0FT44ZZ Resection of Gallbladder, Percutaneous Endoscopic Approach (ICD-10-PCS; principal; 2020-04-15 09:55)
DX: K82.8 Other specified diseases of gallbladder (principal); E87.1 Hypo-osmolality and hyponatremia; G20 Parkinson's disease; F41.9 Anxiety disorder, unspecified; I10 Essential (primary) hypertension; K66.0 Peritoneal adhesions (postprocedural) (postinfection); K81.1 Chronic cholecystitis; Z88.6 Allergy status to analgesic agent
CPT/HCPCS: 36415; 80053; 81001; 85025; 85610; 85730; 86850; 86900; 86901; G0378; J0690; J1100; J2250; J2405; J3490

== ENCOUNTER → 2020-04-27 | Outpatient (CLI) | payer OTHER ==
[~2020-04-27] MED LIST changes: -ASPI-404 PO; +ASPI-543 PO; -LISI40TA PO; +LISI40TA11 PO
== END | disposition home or self-care (01) ==
LOC: LAB 17:07
PROVIDERS: ATTEND Urology
DX: N39.0 Urinary tract infection, site not specified (principal)
CPT/HCPCS: 87086

== ENCOUNTER → 2020-05-14 | Outpatient (CLI) | payer OTHER | END | disposition home or self-care (01) | LOC: LAB 07:23 | PROVIDERS: ATTEND Internal Medicine | DX: E87.1 Hypo-osmolality and hyponatremia (principal) | CPT/HCPCS: 36415; 82270; 84295 ==

== ENCOUNTER → 2020-07-13 | Outpatient (CLI) | payer OTHER | END | disposition home or self-care (01) | LOC: LAB 16:15 | PROVIDERS: ATTEND Urology | DX: N39.0 Urinary tract infection, site not specified (principal) | CPT/HCPCS: 87086 ==

== ENCOUNTER → 2020-10-28 | Outpatient (CLI) | payer OTHER | END | disposition home or self-care (01) | LOC: LAB 14:45 | PROVIDERS: ATTEND Internal Medicine | DX: N34.3 Urethral syndrome, unspecified (principal); R30.0 Dysuria | CPT/HCPCS: 87086 ==

== ENCOUNTER → 2021-01-13 | Outpatient (CLI) | payer OTHER | END | disposition home or self-care (01) | LOC: LAB 12:54 | PROVIDERS: ATTEND Physician Assistant | DX: L82.1 Other seborrheic keratosis (principal); D22.9 Melanocytic nevi, unspecified ==

== ENCOUNTER 2021-08-04 12:43 | Day surgery (SDC) | payer OTHER ==
[2021-07-30 11:20] LABS: Basophils # (auto) 0 10 ^3/uL (0-0.2); Basophils % (auto) 0.7 % (0.0-2.0); Eosinophils # (auto) 0.1 10 ^3/uL (0-0.8); Eosinophils % (auto) 2.1 % (0.0-7.0); Hemoglobin 13.2 g/dL (12.2-16.2); Lymphocytes # (auto) 1.8 10 ^3/uL (0.4-5.4); Lymphocytes % (auto) 34.9 % (10.0-50.0); Mean Corpuscular Hemoglobin 33.1 pg (28.0-32.0); Mean Corpuscular Hgb Conc. 33.8 g/dL (32.0-36.0); Mean Corpuscular Volume 97.9 fL (80.0-100.0); Monocytes # (auto) 0.5 10 ^3/uL (0-1.3); Monocytes % (auto) 9.9 % (0.0-12.0); Neutrophils # (auto) 2.7 10 ^3/uL (1.6-8.6); Neutrophils % (auto) 52.4 % (37.0-80.0); Nucleated Red Blood Cells % 0.1 %; Red Blood Cells 3.98 10^6/uL (4.0-5.20); Red Cell Distribution Width 13.6 % (11.8-14.3); White Blood Cell 5.2 10^3/uL (4.4-10.8)
[2021-07-30 13:31] LABS: Potassium 4.3 mmol/L (3.5-5.1)
[2021-07-30 13:50] LABS: Albumin 3.6 g/dL (3.4-5.0); BUN/Creatinine Ratio 24.5; Bilirubin, Total 0.3 mg/dL (0.2-1.0); Calcium 9.3 mg/dL (8.5-10.1); Total Protein 7.5 g/dL (6.4-8.2)
[~2021-08-04] VITALS: Ht 154.9 cm; Wt 56.7 kg
[~2021-08-04 12:43] MED LIST changes: -ASPI-543 PO; +CARB1TAB73 PO; -CARB25TA23 PO; -HYDR12.56 PO
[2021-08-04] MEDS ORDERED: SODIUM CHLORIDE LOCK 10 ML ONE (13:52)
[2021-08-04] MEDS: MIDAZOLAM HCL 5 MG/ML-1ML VIAL ONE ×4 (15:09→15:25)
[2021-08-04] MEDS: fentaNYL CITRATE 100 MCG/2 ML VL ONE ×3 (15:09→15:17)
[2021-08-04] MEDS: diphenhdrAMINE HCL 50 MG/1 ML VL ONE ×2 (15:13→15:17)
[2021-08-04 16:10] VITALS: BP 146/62
== END 2021-08-04 16:35 | disposition home or self-care (01) ==
LOC: GI 12:43
PROVIDERS: ATTEND Internal Medicine Gastroenterology
DX: K59.00 Constipation, unspecified (principal); K63.89 Other specified diseases of intestine; K21.9 Gastro-esophageal reflux disease without esophagitis; I10 Essential (primary) hypertension; M19.90 Unspecified osteoarthritis, unspecified site; G20 Parkinson's disease; F32.9 Major depressive disorder, single episode, unspecified; F41.9 Anxiety disorder, unspecified; Z90.710 Acquired absence of both cervix and uterus; Z98.890 Other specified postprocedural states; Z88.1 Allergy status to other antibiotic agents; Z79.899 Other long term (current) drug therapy; Z88.5 Allergy status to narcotic agent; Z88.8 Allergy status to other drugs, medicaments and biological substances; Z20.822 Contact with and (suspected) exposure to COVID-19
CPT/HCPCS: 36415; 45378; 80053; 85025; J1200; J2250; J3010; J7030; U0003; 99152; 99153

== ENCOUNTER → 2021-12-27 | Outpatient (CLI) | payer OTHER ==
[~2021-12-27] MED LIST changes: +LIDO5DIS21 TOP
[2021-12-27 11:11] LABS: Basophils # (auto) 0 10 ^3/uL (0-0.2); Basophils % (auto) 0.6 % (0.0-2.0); Eosinophils # (auto) 0 10 ^3/uL (0-0.8); Eosinophils % (auto) 0.5 % (0.0-7.0); Hematocrit 38.2 % (36.0-46.0); Hemoglobin 13.2 g/dL (12.2-16.2); Lymphocytes # (auto) 1.8 10 ^3/uL (0.4-5.4); Lymphocytes % (auto) 23.9 % (10.0-50.0); Mean Corpuscular Hemoglobin 33.6 pg (28.0-32.0); Mean Corpuscular Hgb Conc. 34.6 g/dL (32.0-36.0); Mean Corpuscular Volume 96.9 fL (80.0-100.0); Monocytes # (auto) 0.5 10 ^3/uL (0-1.3); Monocytes % (auto) 6.7 % (0.0-12.0); Neutrophils # (auto) 5.2 10 ^3/uL (1.6-8.6); Neutrophils % (auto) 68.3 % (37.0-80.0); Nucleated Red Blood Cells % 0.1 %; Red Blood Cells 3.94 10^6/uL (4.0-5.20); Red Cell Distribution Width 13.4 % (11.8-14.3); White Blood Cell 7.6 10^3/uL (4.4-10.8)
[2021-12-27 11:18] LABS: Potassium 4.1 mmol/L (3.5-5.1)
[2021-12-27 11:27] LABS: BUN/Creatinine Ratio 29.5; Calcium 9.4 mg/dL (8.5-10.1)
[2021-12-27 11:29] LABS: Urine Bacteria FEW /hpf (None Seen); Urine Blood Negative /uL (Negative); Urine Mucus FEW (None Seen); Urine Specific Gravity 1.016 (1.001-1.035)
[2021-12-27 11:30] LABS: Bilirubin, Total 0.5 mg/dL (0.2-1.0); Total Protein 7.5 g/dL (6.4-8.2)
[2021-12-27 11:33] LABS: Urine WBC None Seen /hpf (0 - 5)
== END | disposition home or self-care (01) ==
LOC: LAB 10:05
PROVIDERS: ATTEND Internal Medicine
DX: I10 Essential (primary) hypertension (principal); R11.0 Nausea
CPT/HCPCS: 36415; 80053; 81001; 85025; 85652

== ENCOUNTER → 2022-01-05 | Outpatient (CLI) | payer OTHER | END | disposition home or self-care (01) | LOC: LAB 07:01 | PROVIDERS: ATTEND Internal Medicine Gastroenterology | DX: K59.02 Outlet dysfunction constipation (principal) | CPT/HCPCS: 82378 ==

== ENCOUNTER → 2022-01-24 | Outpatient (CLI) | payer OTHER | END | disposition home or self-care (01) | LOC: LAB 13:12 | PROVIDERS: ATTEND Internal Medicine | DX: R93.89 Abnormal findings on diagnostic imaging of other specified body structures (principal) | CPT/HCPCS: 36415; 82565; 84520 ==

== ENCOUNTER → 2022-03-09 | Outpatient (CLI) | payer OTHER ==
[~2022-03-09] VITALS: Ht 154.9 cm; Wt 60.3 kg
[~2022-03-09] MED LIST changes: +ADENOSINE 51 MG in GIVE UN-DILUTED 0 ML IV ONE
== END | disposition home or self-care (01) ==
LOC: XYW 08:05
PROVIDERS: ATTEND Internal Medicine
DX: Z01.810 Encounter for preprocedural cardiovascular examination (principal); E78.5 Hyperlipidemia, unspecified
CPT/HCPCS: 78452; 93017; A9500; J0153

== ENCOUNTER 2022-04-21 06:10 | Day surgery (SDC) | payer OTHER ==
[2022-04-18 11:31] LABS: Basophils # (auto) 0 10 ^3/uL (0-0.2); Basophils % (auto) 0.6 % (0.0-2.0); Eosinophils # (auto) 0.1 10 ^3/uL (0-0.8); Hematocrit 40.3 % (36.0-46.0); Lymphocytes % (auto) 27.9 % (10.0-50.0); Mean Corpuscular Hemoglobin 31.1 pg (28.0-32.0); Mean Corpuscular Hgb Conc. 32.3 g/dL (32.0-36.0); Mean Corpuscular Volume 96.2 fL (80.0-100.0); Monocytes # (auto) 0.6 10 ^3/uL (0-1.3); Monocytes % (auto) 7.7 % (0.0-12.0); Neutrophils # (auto) 4.5 10 ^3/uL (1.6-8.6); Neutrophils % (auto) 61.8 % (37.0-80.0); Red Blood Cells 4.18 10^6/uL (4.0-5.20); Red Cell Distribution Width 12.7 % (11.8-14.3); White Blood Cell 7.3 10^3/uL (4.4-10.8)
[2022-04-18 11:44] LABS: INR 0.98 (0.9-1.15); Partial Thromboplastin Time 26.4 sec (23.6-33.0)
[2022-04-18 11:56] LABS: Urine Bacteria NONE SEEN /hpf (None Seen); Urine Blood Negative /uL (Negative); Urine Mucus FEW (None Seen); Urine Specific Gravity 1.025 (1.001-1.035); Urine WBC <1 /hpf (0 - 5)
[2022-04-18 12:09] LABS: Calcium 9.1 mg/dL (8.5-10.1); Potassium 4.7 mmol/L (3.5-5.1)
[2022-04-18 12:12] LABS: Albumin 3.8 g/dL (3.4-5.0); BUN/Creatinine Ratio 29.7; Bilirubin, Total 0.4 mg/dL (0.2-1.0); Total Protein 7.7 g/dL (6.4-8.2)
[~2022-04-21] VITALS: Ht 157.5 cm; Wt 58.5 kg
[~2022-04-21 06:10] MED LIST changes: -ADENOSINE 51 MG in GIVE UN-DILUTED 0 ML IV ONE; +ASPI-378 PO
[2022-04-21] MEDS ORDERED: PHENYLEPHRINE HCL 10 MG/ML VL IV ONE (06:11)
[2022-04-21] MEDS ORDERED: ceFAZolin 1GM/50ML 100 ML IV ONE (07:07)
[2022-04-21] MEDS ORDERED: fentaNYL CITRATE 100 MCG/2 ML VL ONE (07:19)
[2022-04-21] MEDS ORDERED: MEPERIDINE HCL (25 MG/ML) 1ML VIAL ONE (07:19)
[2022-04-21] MEDS ORDERED: MIDAZOLAM HCL 2MG/2ML 2ml VIAL (1mg/ml) ONE (07:19)
[2022-04-21] MEDS ORDERED: LIDOCAINE 1%-Mpf/Epinephrine 1:200,000 ONE (07:34)
[2022-04-21] MEDS ORDERED: DexAMETHasone SOD PHOS 10MG/1ML VIAL INJ ONE (07:35)
[2022-04-21] MEDS ORDERED: PROPOFOL 10 MG/ML 20 ML IV ONE (07:58)
[2022-04-21] MEDS ORDERED: ceFAZolin 1GM VL ONE (08:25)
[2022-04-21] MEDS ORDERED: CONJ ESTROGENS 0.625MG/GM VAG CRM 30GM PV ONE (08:31)
[2022-04-21] MEDS ORDERED: LABETALOL HCL 5 MG/ML 4ML SYRINGE IV PRN (09:00)
[2022-04-21] MEDS ORDERED: ONDANSETRON HCL 4 MG/2 ML VIAL IV PRN (09:00)
[2022-04-21] MEDS ORDERED: fentaNYL CITRATE 100 MCG/2 ML VL IV PRN (09:00)
[2022-04-21] MEDS ORDERED: ePHEDrine SULFATE 50 MG/ML AMP IV PRN (09:00)
[2022-04-21] MEDS ORDERED: MIDAZOLAM HCL 2MG/2ML 2ml VIAL (1mg/ml) IV PRN (09:00)
[2022-04-21 09:15] VITALS: BP 126/58
== END 2022-04-21 09:15 | disposition home or self-care (01) ==
LOC: SUR 06:10
PROVIDERS: ATTEND Urology
DX: N81.10 Cystocele, unspecified (principal); I10 Essential (primary) hypertension; K21.9 Gastro-esophageal reflux disease without esophagitis; I25.10 Atherosclerotic heart disease of native coronary artery without angina pectoris; G20 Parkinson's disease; F41.9 Anxiety disorder, unspecified; F32.A Depression, unspecified; Z98.890 Other specified postprocedural states; Z79.899 Other long term (current) drug therapy; Z90.49 Acquired absence of other specified parts of digestive tract; Z90.710 Acquired absence of both cervix and uterus; Z88.1 Allergy status to other antibiotic agents; Z88.6 Allergy status to analgesic agent; Z82.49 Family history of ischemic heart disease and other diseases of the circulatory system; Z80.8 Family history of malignant neoplasm of other organs or systems
CPT/HCPCS: 36415; 57285; 80053; 81001; 85025; 85610; 85730; 88305; C1771; C2631; J0690; J1100; J2001; J2175; J2250; J2370; J2704; J3010; Q4140; U0003

== ENCOUNTER 2022-04-24 05:43 | Emergency (ER) | payer OTHER ==
[~2022-04-24] VITALS: Ht 157.5 cm; Wt 58.5 kg
[2022-04-24 06:07] VITALS: BP 107/57
[2022-04-24] MEDS ORDERED: ONDANSETRON ODT 4 MG TAB PO ONE (10:00)
[2022-04-24] MEDS ORDERED: ACETAMINOPHEN/CODEINE#3 (300/30mg) TAB PO ONE (10:00)
[2022-04-24] MEDS ORDERED: ACE3T PO (10:08)
== END 2022-04-24 11:22 | disposition home or self-care (01) ==
LOC: ER 05:43
DX: S22.42XA Multiple fractures of ribs, left side, initial encounter for closed fracture (principal); S93.402A Sprain of unspecified ligament of left ankle, initial encounter; S16.1XXA Strain of muscle, fascia and tendon at neck level, initial encounter; I10 Essential (primary) hypertension; I25.2 Old myocardial infarction; E78.5 Hyperlipidemia, unspecified; Z90.710 Acquired absence of both cervix and uterus; Z90.49 Acquired absence of other specified parts of digestive tract; Z90.89 Acquired absence of other organs; Z88.6 Allergy status to analgesic agent; Z88.2 Allergy status to sulfonamides; Z88.1 Allergy status to other antibiotic agents; W19.XXXA Unspecified fall, initial encounter; Y93.89 Activity, other specified; Y92.89 Other specified places as the place of occurrence of the external cause; Y99.8 Other external cause status
CPT/HCPCS: 71250; 73610; 93005; 99284; Q0162

== ENCOUNTER 2022-04-26 14:25 | Inpatient (IN) | payer OTHER ==
[~2022-04-26] VITALS: Ht 157.5 cm; Wt 58.5 kg
[~2022-04-26 14:25] MED LIST changes: +ACE3T PO
[2022-04-26 16:41] LABS: Basophils # (auto) 0 10 ^3/uL (0-0.2); Basophils % (auto) 0.4 % (0.0-2.0); Eosinophils # (auto) 0.3 10 ^3/uL (0-0.8); Eosinophils % (auto) 4.9 % (0.0-7.0); Hematocrit 35.4 % (36.0-46.0); Hemoglobin 11.7 g/dL (12.2-16.2); Lymphocytes # (auto) 1.6 10 ^3/uL (0.4-5.4); Lymphocytes % (auto) 25.7 % (10.0-50.0); Mean Corpuscular Hemoglobin 31.5 pg (28.0-32.0); Mean Corpuscular Hgb Conc. 33.2 g/dL (32.0-36.0); Monocytes # (auto) 0.6 10 ^3/uL (0-1.3); Monocytes % (auto) 9.9 % (0.0-12.0); Neutrophils # (auto) 3.6 10 ^3/uL (1.6-8.6); Neutrophils % (auto) 59.1 % (37.0-80.0); Red Blood Cells 3.72 10^6/uL (4.0-5.20); Red Cell Distribution Width 13.1 % (11.8-14.3); White Blood Cell 6.1 10^3/uL (4.4-10.8)
[2022-04-26 16:55] LABS: Albumin 3.4 g/dL (3.4-5.0); BUN/Creatinine Ratio 21.6; Calcium 8.3 mg/dL (8.5-10.1); Potassium 4.2 mmol/L (3.5-5.1)
[2022-04-26 16:58] LABS: Bilirubin, Total 0.6 mg/dL (0.2-1.0); Total Protein 6.8 g/dL (6.4-8.2)
[2022-04-26] MEDS ORDERED: SODIUM CHLORIDE 0.9% 500 ML IV ONE (21:15)
[2022-04-26] MEDS ORDERED: metroNIDAZOLE 500MG/100ML 100 ML IV ONE (21:15)
[2022-04-26] MEDS ORDERED: CIPROFLOXACIN HCL 500 MG TAB PO ONE (21:15)
[2022-04-27] MEDS ORDERED: MORPHINE SULFATE INJ 2 MG/ml SYRG IV ONE (01:45)
[2022-04-27] MEDS ORDERED: DOCUSATE SOD 100 MG CAP PO ONE (01:45)
[2022-04-27] MEDS ORDERED: ONDANSETRON HCL 4 MG/2 ML VIAL IV ONE (01:45)
[2022-04-27] MEDS ORDERED: KETOROLAC TROMETH 30 MG/ML 1ML VIAL IV ONE (03:00)
[2022-04-27] MEDS ORDERED: LACTULOSE 20Gm/30ML SOLN PO ONE (04:30)
[2022-04-27] MEDS ORDERED: SODIUM CHLORIDE 0.9% 1,000 ML IV ONE (04:30)
[2022-04-27] MEDS ORDERED: LACTULOSE 20Gm/30ML SOLN PO PRN (05:00)
[2022-04-27 06:35] LABS: Basophils # (auto) 0 10 ^3/uL (0-0.2); Basophils % (auto) 0.8 % (0.0-2.0); Eosinophils # (auto) 0.4 10 ^3/uL (0-0.8); Eosinophils % (auto) 7.7 % (0.0-7.0); Hemoglobin 10.8 g/dL (12.2-16.2); Lymphocytes # (auto) 1.6 10 ^3/uL (0.4-5.4); Lymphocytes % (auto) 30.3 % (10.0-50.0); Mean Corpuscular Hemoglobin 31.8 pg (28.0-32.0); Mean Corpuscular Hgb Conc. 33.6 g/dL (32.0-36.0); Mean Corpuscular Volume 94.5 fL (80.0-100.0); Monocytes # (auto) 0.6 10 ^3/uL (0-1.3); Neutrophils # (auto) 2.7 10 ^3/uL (1.6-8.6); Neutrophils % (auto) 50.2 % (37.0-80.0); Nucleated Red Blood Cells % 0.1 %; Red Blood Cells 3.38 10^6/uL (4.0-5.20); Red Cell Distribution Width 12.8 % (11.8-14.3); White Blood Cell 5.4 10^3/uL (4.4-10.8)
[2022-04-27 06:48] LABS: Potassium 4.2 mmol/L (3.5-5.1)
[2022-04-27] MEDS: metroNIDAZOLE 500MG/100ML 100 ML IV SCH ×2 (06:58→14:49)
[2022-04-27 09:30] VITALS: BP 148/65
[2022-04-27] MEDS ORDERED: BISACODYL 5 MG EC TAB PO ONE (11:15)
[2022-04-27] MEDS ORDERED: BISACODYL 10 MG RECT SUPP PR ONE (11:15)
[2022-04-27 12:00] VITALS: BP 164/70
[2022-04-27] MEDS ORDERED: GOLYTELY 4L KIT PO ONE (12:00)
[2022-04-27 16:00] VITALS: BP 116/58
[2022-04-27 20:15] VITALS: BP 129/69
[2022-04-28] MEDS ORDERED: LISINOPRIL 20 MG TAB PO SCH (10:00)
[2022-04-28] MEDS ORDERED: ASPirin 81 mg TAB PO SCH (10:00)
== END 2022-04-27 20:35 | disposition home or self-care (01) | DRG 392 ==
LOC: ER 14:25 → OVERFLOW 04-27 04:25 → CENTRAL 04-27 09:07
PROVIDERS: ADMIT Registered Nurse; ATTEND Internal Medicine
DX: K59.00 Constipation, unspecified (principal); J98.11 Atelectasis; J90 Pleural effusion, not elsewhere classified; K52.9 Noninfective gastroenteritis and colitis, unspecified; I12.9 Hypertensive chronic kidney disease with stage 1 through stage 4 chronic kidney disease, or unspecified chronic kidney disease; E78.5 Hyperlipidemia, unspecified; K21.9 Gastro-esophageal reflux disease without esophagitis; Z20.822 Contact with and (suspected) exposure to COVID-19; N18.31 Chronic kidney disease, stage 3a; Z87.898 Personal history of other specified conditions; Z88.5 Allergy status to narcotic agent; Z88.1 Allergy status to other antibiotic agents; Z90.49 Acquired absence of other specified parts of digestive tract; I25.2 Old myocardial infarction; Z82.49 Family history of ischemic heart disease and other diseases of the circulatory system; Z90.710 Acquired absence of both cervix and uterus
CPT/HCPCS: 36415; 71045; 74176; 76775; 80048; 80053; 80061; 83036; 83690; 83880; 84439; 84443; 84484; 85025; 96365; 96375; G0378; J1885; J2405; J3490

== ENCOUNTER → 2022-08-05 | Outpatient (CLI) | payer OTHER ==
[2022-08-05 10:42] LABS: Basophils # (auto) 0.1 10 ^3/uL (0-0.2); Basophils % (auto) 0.7 % (0.0-2.0); Eosinophils # (auto) 0.1 10 ^3/uL (0-0.8); Eosinophils % (auto) 1.6 % (0.0-7.0); Hematocrit 40.4 % (36.0-46.0); Hemoglobin 13.6 g/dL (12.2-16.2); Lymphocytes # (auto) 2.1 10 ^3/uL (0.4-5.4); Lymphocytes % (auto) 26.8 % (10.0-50.0); Mean Corpuscular Hgb Conc. 33.8 g/dL (32.0-36.0); Mean Corpuscular Volume 94.7 fL (80.0-100.0); Monocytes # (auto) 0.6 10 ^3/uL (0-1.3); Neutrophils # (auto) 5.1 10 ^3/uL (1.6-8.6); Neutrophils % (auto) 63.9 % (37.0-80.0); Red Blood Cells 4.26 10^6/uL (4.0-5.20); Red Cell Distribution Width 13.2 % (11.8-14.3); White Blood Cell 7.9 10^3/uL (4.4-10.8)
[2022-08-05 10:53] LABS: Reticulocyte % (auto) 1.1 % (0.5-1.5)
[2022-08-05 11:40] LABS: Albumin 3.9 g/dL (3.4-5.0); Calcium 8.8 mg/dL (8.5-10.1)
[2022-08-05 11:44] LABS: BUN/Creatinine Ratio 35.3; Bilirubin, Total 0.4 mg/dL (0.2-1.0); Total Protein 7.7 g/dL (6.4-8.2)
[2022-08-05 11:57] LABS: Thyroid Stimulating Hormone 1.14 uIU/mL (0.358-3.74)
[2022-08-05 12:05] LABS: Free T4 (Free Thyroxine) 1.23 ng/dL (0.89-1.76)
== END | disposition home or self-care (01) ==
LOC: LAB 10:22
PROVIDERS: ATTEND Internal Medicine
DX: I10 Essential (primary) hypertension (principal); D64.9 Anemia, unspecified
CPT/HCPCS: 36415; 80053; 82607; 83540; 83615; 84439; 84443; 85025; 85045

== ENCOUNTER → 2022-11-07 | Outpatient (CLI) | payer OTHER ==
[2022-11-07 11:43] LABS: Basophils # (auto) 0.1 10 ^3/uL (0-0.2); Basophils % (auto) 1.4 % (0.0-2.0); Eosinophils # (auto) 0.1 10 ^3/uL (0-0.8); Eosinophils % (auto) 1.7 % (0.0-7.0); Hematocrit 38.4 % (36.0-46.0); Hemoglobin 12.7 g/dL (12.2-16.2); Lymphocytes # (auto) 2.7 10 ^3/uL (0.4-5.4); Lymphocytes % (auto) 35.7 % (10.0-50.0); Mean Corpuscular Hemoglobin 31.1 pg (28.0-32.0); Mean Corpuscular Hgb Conc. 33.1 g/dL (32.0-36.0); Monocytes # (auto) 0.5 10 ^3/uL (0-1.3); Monocytes % (auto) 6.9 % (0.0-12.0); Neutrophils % (auto) 54.3 % (37.0-80.0); Nucleated Red Blood Cells % 0.1 %; Red Blood Cells 4.09 10^6/uL (4.0-5.20); Red Cell Distribution Width 13.3 % (11.8-14.3); White Blood Cell 7.4 10^3/uL (4.4-10.8)
[2022-11-07 13:15] LABS: Ferritin 15.3 ng/mL (10-322)
[2022-11-07 13:16] LABS: Folate (Folic Acid) 19.95 ng/mL (5.38-24)
[2022-11-07 13:40] LABS: Albumin 3.9 g/dL (3.4-5.0); Potassium 4.2 mmol/L (3.5-5.1)
[2022-11-07 13:41] LABS: BUN/Creatinine Ratio 27.5; Calcium 9.5 mg/dL (8.5-10.1)
[2022-11-07 13:44] LABS: Bilirubin, Total 0.4 mg/dL (0.2-1.0); Total Protein 7.7 g/dL (6.4-8.2)
== END | disposition home or self-care (01) ==
LOC: LAB 11:17
PROVIDERS: ATTEND Internal Medicine Gastroenterology
DX: D64.9 Anemia, unspecified (principal); R10.9 Unspecified abdominal pain
CPT/HCPCS: 36415; 80053; 82274; 82607; 82728; 82746; 83036; 85025

== ENCOUNTER → 2022-11-11 | Day surgery (SDC) | payer OTHER ==
[2022-11-09 09:38] LABS: INR 0.95 (0.9-1.15); Partial Thromboplastin Time 26.2 sec (24.6-33.4)
[~2022-11-11] VITALS: Ht 152.4 cm; Wt 61.2 kg
[~2022-11-11] MED LIST changes: +LIDOCAINE VISCOUS 2% 15ML UD ONE
[2022-11-11] MEDS: MIDAZOLAM HCL 2MG/2ML 2ml VIAL (1mg/ml) ONE ×3 (11:22→11:30)
[2022-11-11] MEDS: diphenhdrAMINE HCL 50 MG/1 ML VL ONE ×2 (11:22→11:26)
[2022-11-11] MEDS: fentaNYL CITRATE 100 MCG/2 ML VL ONE ×3 (11:22→11:30)
[2022-11-11 12:15] VITALS: BP 122/58
== END | disposition home or self-care (01) ==
LOC: GI 09:45
PROVIDERS: ATTEND Internal Medicine Gastroenterology
DX: K21.9 Gastro-esophageal reflux disease without esophagitis (principal); D64.9 Anemia, unspecified; K44.9 Diaphragmatic hernia without obstruction or gangrene; K25.9 Gastric ulcer, unspecified as acute or chronic, without hemorrhage or perforation; K29.50 Unspecified chronic gastritis without bleeding; Z20.822 Contact with and (suspected) exposure to COVID-19
CPT/HCPCS: 36415; 43239; 85610; 85730; 88305; 88342; J1200; J2250; J3010; J7030; U0003

== ENCOUNTER → 2023-01-12 | Outpatient (CLI) | payer OTHER ==
[~2023-01-12] MED LIST changes: -LIDOCAINE VISCOUS 2% 15ML UD ONE
[2023-01-12 15:16] LABS: Urine Bacteria FEW /hpf (None Seen); Urine Blood Negative /uL (Negative); Urine Specific Gravity 1.015 (1.001-1.035); Urine WBC 5 /hpf (0 - 5)
== END | disposition home or self-care (01) ==
LOC: LAB 14:47
PROVIDERS: ATTEND Internal Medicine
DX: N39.0 Urinary tract infection, site not specified (principal)
CPT/HCPCS: 81001; 87086

== ENCOUNTER → 2023-02-13 | Outpatient (CLI) | payer OTHER | END | disposition home or self-care (01) | LOC: LAB 06:55 | PROVIDERS: ATTEND Nurse Practitioner | DX: N39.0 Urinary tract infection, site not specified (principal) | CPT/HCPCS: 87086; 87088; 87186 ==

== ENCOUNTER 2023-02-19 07:00 | Inpatient (IN) | payer OTHER ==
[~2023-02-19] VITALS: Ht 152.4 cm; Wt 60.4 kg
[2023-02-19 07:45] LABS: Urine Bacteria FEW /hpf (None Seen); Urine Blood Negative /uL (Negative); Urine Hyaline Cast FEW /lpf (0 - 2); Urine Mucus FEW (None Seen); Urine WBC 76 /hpf (0 - 5)
[2023-02-19] MEDS ORDERED: ACETAMINOPHEN 500 MG TAB PO ONE (08:30)
[2023-02-19] MEDS ORDERED: cefTRIAXone SOD 1,000 MG VL IM ONE (08:30)
[2023-02-19] MEDS ORDERED: LIDOCAINE 1% HCL (LOCAL ANESTH.) INJ 20ML MDV ID ONE (08:30)
[2023-02-19] MEDS ORDERED: SODIUM CHLORIDE 0.9% 1,000 ML IV ONE (08:30)
[2023-02-19 09:14] LABS: Basophils # (auto) 0.1 10 ^3/uL (0-0.2); Basophils % (auto) 0.9 % (0.0-2.0); Eosinophils # (auto) 0 10 ^3/uL (0-0.8); Eosinophils % (auto) 0.5 % (0.0-7.0); Hematocrit 38.6 % (36.0-46.0); Hemoglobin 13.2 g/dL (12.2-16.2); Lymphocytes # (auto) 1.7 10 ^3/uL (0.4-5.4); Mean Corpuscular Hgb Conc. 34.2 g/dL (32.0-36.0); Mean Corpuscular Volume 93.7 fL (80.0-100.0); Monocytes # (auto) 0.5 10 ^3/uL (0-1.3); Monocytes % (auto) 8.2 % (0.0-12.0); Neutrophils # (auto) 4.4 10 ^3/uL (1.6-8.6); Neutrophils % (auto) 65.4 % (37.0-80.0); Nucleated Red Blood Cells % 0.1 %; Red Blood Cells 4.12 10^6/uL (4.0-5.20); Red Cell Distribution Width 14.1 % (11.8-14.3); White Blood Cell 6.7 10^3/uL (4.4-10.8)
[2023-02-19] MEDS ORDERED: cefTRIAXone 1GM/50ML D5W 50 ML IV ONE (09:30)
[2023-02-19 09:42] LABS: Calcium 9.3 mg/dL (8.5-10.1); Potassium 5.5 mmol/L (3.5-5.1)
[2023-02-19 09:46] LABS: BUN/Creatinine Ratio 18.3 (10.0-20.0); Bilirubin, Total 0.6 mg/dL (0.2-1.0)
[2023-02-19] MEDS ORDERED: SODIUM ZIRCONIUM CYCL 10 GM PAK PO ONE (10:15)
[2023-02-19] MEDS ORDERED: MORPHINE SULFATE INJ 2 MG/ml SYRG IV PRN (10:45)
[2023-02-19] MEDS ORDERED: NITROGLYCERIN 0.4 MG SL TAB SL PRN (10:45)
[2023-02-19] MEDS ORDERED: HYDROcodone-ACET 5/325MG TAB PO PRN (10:45)
[2023-02-19] MEDS ORDERED: ONDANSETRON HCL 4 MG/2 ML VIAL IV PRN (10:45)
[2023-02-19] MEDS ORDERED: ACETAMINOPHEN 325 MG TAB PO PRN (10:45)
[2023-02-19] MEDS ORDERED: PANTOPRAZOLE 40 MG/10 ML VIAL INJ IV ONE (11:45)
[2023-02-19] MEDS ORDERED: hydrALAZINE HCL 20 MG/ML VL IV PRN (11:45)
[2023-02-19] MEDS: SODIUM CHLORIDE 0.9% 1,000 ML IV SCH ×2 (11:59→21:24)
[2023-02-19 12:01] LABS: Cholesterol 181 mg/dL (< 200)
[2023-02-19] MEDS: PHENAZOPYRIDINE HCL 100 MG TAB PO SCH ×2 (12:01→18:09)
[2023-02-19 12:04] LABS: HDL Cholesterol 93 mg/dL (40-59); LDL Cholesterol 82 mg/dL (< 100); Triglycerides 60 mg/dL (< 150)
[2023-02-19 12:05] LABS: INR 0.97 (0.9-1.15); Partial Thromboplastin Time 25.9 sec (24.6-33.4)
[2023-02-19] MEDS: CARBIDOPA LEVODOPA PO SCH (22:00)
[2023-02-19] MEDS: ALPRAZolam 0.25 MG TAB PO PRN (22:22)
[2023-02-20] MEDS ORDERED: CARB1TAB73 (01:39)
[2023-02-20] MEDS: SODIUM CHLORIDE 0.9% 1,000 ML IV SCH ×2 (02:51→16:45)
[2023-02-20 05:00] VITALS: BP 141/62
[2023-02-20 06:14] LABS: Basophils # (auto) 0 10 ^3/uL (0-0.2); Basophils % (auto) 0.7 % (0.0-2.0); Eosinophils # (auto) 0.1 10 ^3/uL (0-0.8); Eosinophils % (auto) 1.9 % (0.0-7.0); Hematocrit 34.6 % (36.0-46.0); Lymphocytes # (auto) 2.5 10 ^3/uL (0.4-5.4); Lymphocytes % (auto) 41.1 % (10.0-50.0); Mean Corpuscular Hemoglobin 32.6 pg (28.0-32.0); Mean Corpuscular Hgb Conc. 34.7 g/dL (32.0-36.0); Monocytes # (auto) 0.6 10 ^3/uL (0-1.3); Monocytes % (auto) 10.4 % (0.0-12.0); Neutrophils # (auto) 2.8 10 ^3/uL (1.6-8.6); Neutrophils % (auto) 45.9 % (37.0-80.0); Nucleated Red Blood Cells % 0.1 %; Red Blood Cells 3.68 10^6/uL (4.0-5.20); Red Cell Distribution Width 13.9 % (11.8-14.3)
[2023-02-20 06:30] LABS: Potassium 3.6 mmol/L (3.5-5.1)
[2023-02-20 06:39] LABS: Albumin 3.7 g/dL (3.4-5.0); BUN/Creatinine Ratio 15.4 (10.0-20.0); Bilirubin, Total 0.5 mg/dL (0.2-1.0); Calcium 8.8 mg/dL (8.5-10.1); Total Protein 6.7 g/dL (6.4-8.2)
[2023-02-20 08:00] VITALS: BP 148/63
[2023-02-20 08:25] VITALS: BP 166/66
[2023-02-20] MEDS: PHENAZOPYRIDINE HCL 100 MG TAB PO SCH ×3 (08:54→18:00)
[2023-02-20] MEDS: CARBIDOPA LEVODOPA PO SCH (08:57)
[2023-02-20] MEDS ORDERED: cefTRIAXone 1GM/50ML D5W 50 ML IV SCH (09:00)
[2023-02-20] MEDS: MORPHINE SULFATE INJ 2 MG/ml SYRG IV PRN ×2 (09:12→14:22)
[2023-02-20] MEDS ORDERED: PANTOPRAZOLE 40 MG/10 ML VIAL INJ IV SCH (10:00)
[2023-02-20] MEDS ORDERED: ENOXAPARIN SOD 40 MG/0.4 ML SYRINGE SC SCH (10:00)
[2023-02-20] MEDS ORDERED: ASPirin-EC 81 mg tab PO SCH (10:00)
[2023-02-20] MEDS ORDERED: CEPH-510 PO (10:23)
[2023-02-20 10:50] LABS: Hepatitis B Surface Antibody Positive (Negative)
[2023-02-20 11:26] LABS: Hepatitis A Total Antibody Positive (Negative)
[2023-02-20 12:20] VITALS: BP 148/63
[2023-02-20 13:04] LABS: Hepatitis C Antibody Negative (Negative)
[2023-02-20 16:03] VITALS: BP 160/66
[2023-02-20 16:30] VITALS: BP 160/74
[2023-02-20] MEDS ORDERED: LISINOPRIL 20 MG TAB PO ONE (16:30)
[2023-02-20] MEDS: ALPRAZolam 0.25 MG TAB PO PRN (16:58)
== END 2023-02-20 17:30 | disposition home or self-care (01) | DRG 690 ==
LOC: ER 07:00 → TELE 11:27 → TELE-CENTR 22:30
PROVIDERS: ADMIT Registered Nurse; ATTEND Internal Medicine
DX: N30.00 Acute cystitis without hematuria (principal); E87.1 Hypo-osmolality and hyponatremia; N17.9 Acute kidney failure, unspecified; E78.5 Hyperlipidemia, unspecified; K21.9 Gastro-esophageal reflux disease without esophagitis; I10 Essential (primary) hypertension; E87.5 Hyperkalemia; R91.1 Solitary pulmonary nodule; N28.1 Cyst of kidney, acquired; Z88.1 Allergy status to other antibiotic agents; Z88.2 Allergy status to sulfonamides; I25.2 Old myocardial infarction; Z90.49 Acquired absence of other specified parts of digestive tract; Z90.710 Acquired absence of both cervix and uterus; Z83.3 Family history of diabetes mellitus; Z82.49 Family history of ischemic heart disease and other diseases of the circulatory system; Z80.9 Family history of malignant neoplasm, unspecified
CPT/HCPCS: 36415; 36600; 74176; 76700; 80053; 80061; 81001; 82306; 82805; 82977; 83036; 83605; 84132; 84443; 85025; 85610; 85730; 86704; 86706; 86708; 86803; 87040; 87086; 87340; 96361; 96365; 96375; C9113; G0378; J0696

== ENCOUNTER → 2023-03-17 | Outpatient (CLI) | payer OTHER ==
[~2023-03-17] MED LIST changes: -ACE3T PO; +CEPH-510 PO; -LIDO5DIS21 TOP
[2023-03-17 08:38] LABS: Urine Bacteria NONE SEEN /hpf (None Seen); Urine Blood Negative /uL (Negative); Urine Specific Gravity 1.012 (1.001-1.035); Urine WBC 12 /hpf (0 - 5)
== END | disposition home or self-care (01) ==
LOC: LAB 06:40
PROVIDERS: ATTEND Urology
DX: N39.0 Urinary tract infection, site not specified (principal)
CPT/HCPCS: 81001; 87086

== ENCOUNTER 2023-07-11 07:02 | Day surgery (SDC) | payer OTHER ==
[2023-07-06 10:14] LABS: Basophils # (auto) 0 10 ^3/uL (0-0.2); Basophils % (auto) 0.4 % (0.0-2.0); Eosinophils # (auto) 0 10 ^3/uL (0-0.8); Eosinophils % (auto) 0.3 % (0.0-7.0); Hematocrit 39.2 % (36.0-46.0); Hemoglobin 13.3 g/dL (12.2-16.2); Lymphocytes # (auto) 1.7 10 ^3/uL (0.4-5.4); Lymphocytes % (auto) 24.7 % (10.0-50.0); Mean Corpuscular Hemoglobin 31.9 pg (28.0-32.0); Mean Corpuscular Volume 93.9 fL (80.0-100.0); Monocytes # (auto) 0.6 10 ^3/uL (0-1.3); Monocytes % (auto) 9.1 % (0.0-12.0); Neutrophils # (auto) 4.4 10 ^3/uL (1.6-8.6); Neutrophils % (auto) 65.5 % (37.0-80.0); Nucleated Red Blood Cells % 0.1 %; Red Blood Cells 4.18 10^6/uL (4.0-5.20); Red Cell Distribution Width 14.7 % (11.8-14.3); White Blood Cell 6.7 10^3/uL (4.4-10.8)
[2023-07-06 10:25] LABS: Urine Bacteria NONE SEEN /hpf (None Seen); Urine Blood TRACE /uL (Negative); Urine Clarity Clear (Clear); Urine Color Yellow (Yellow); Urine Protein, UAD 1+ (Negative); Urine Specific Gravity 1.021 (1.001-1.035); Urine Urobilinogen Normal (Negative); Urine WBC 32 /hpf (0 - 5); Urine pH 5.5 (5.0-8.0)
[2023-07-06 10:48] LABS: INR 0.98 (0.9-1.15); Partial Thromboplastin Time 25.3 SEC (24.5-34.5); Prothrombin Time 10.3 sec (9.3-11.8)
[2023-07-06 11:04] LABS: Alkaline Phosphatase 84 U/L (46-116); Anion Gap 5 (5-15); Aspartate Aminotransferase 16 U/L (13-40); BUN/Creatinine Ratio 31.4 (10.0-20.0); Blood Urea Nitrogen 27 mg/dL (9-23); Calcium 9.2 mg/dL (8.7-10.4); Carbon Dioxide 28 mmol/L (20-30); Chloride 100 mmol/L (98-107); Glucose 109 mg/dL (74-106); Sodium 133 mmol/L (136-145)
[2023-07-06 11:05] LABS: Alanine Aminotransferase < 9 U/L (7-40); Albumin 4.5 g/dL (3.2-4.8); Bilirubin, Total 0.4 mg/dL (0.2-1.0); Total Protein 7.2 g/dL (5.7-8.2)
[~2023-07-11] VITALS: Ht 154.9 cm; Wt 62.6 kg
[~2023-07-11 07:02] MED LIST changes: -LISI40TA11 PO; +LISI40TA16 PO
[2023-07-11] MEDS ORDERED: ceFAZolin 1GM/50ML 100 ML IV ONE (09:49)
[2023-07-11] MEDS ORDERED: LIDOCAINE W/ EPINEPHRINE 1% 20ML VIAL ONE (11:26)
[2023-07-11] MEDS ORDERED: MIDAZOLAM HCL 2MG/2ML 2ml VIAL (1mg/ml) ONE (11:30)
[2023-07-11] MEDS ORDERED: fentaNYL CITRATE 100 MCG/2 ML VL ONE (11:30)
[2023-07-11] MEDS ORDERED: LIDOCAINE 2% (LOCAL ANESTH.) PF 5ml SDV ONE (11:35)
[2023-07-11] MEDS ORDERED: ONDANSETRON HCL 4 MG/2 ML VIAL ONE (11:35)
[2023-07-11] MEDS ORDERED: PROPOFOL 10 MG/ML 20 ML IV ONE (11:48)
[2023-07-11] MEDS ORDERED: ROCURONIUM 10MG/ML 10ML VIAL IV ONE (12:04)
[2023-07-11] MEDS ORDERED: HYDROmorphone HCL 2 MG/ML VL/or syr IV PRN ×2 (12:15)
[2023-07-11] MEDS ORDERED: ONDANSETRON HCL 4 MG/2 ML VIAL IV PRN (12:15)
[2023-07-11] MEDS ORDERED: CONJ ESTROGENS 0.625MG/GM VAG CRM 30GM PV ONE (12:28)
[2023-07-11 12:46] VITALS: TEMP 97.4; O2SAT 100
[2023-07-11] MEDS ORDERED: NEOSTIGMINE 1 MG/ML INJ (10mg/10ML VIAL) ONE (12:49)
[2023-07-11] MEDS ORDERED: GLYCOPYRROLATE 0.2 MG/ML 1ML VIAL ONE (12:49)
[2023-07-11 14:08] VITALS: BP 134/52; PULSE 64; RESP 13; O2SAT 98
== END 2023-07-11 14:10 | disposition home or self-care (01) ==
LOC: SUR 07:02
PROVIDERS: ATTEND Urology
DX: A58 Granuloma inguinale (principal); N93.9 Abnormal uterine and vaginal bleeding, unspecified; N28.1 Cyst of kidney, acquired; Z87.440 Personal history of urinary (tract) infections
CPT/HCPCS: 36415; 51860; 58999; 80053; 81001; 85025; 85610; 85730; 87086; 88305; J0690; J2001; J2250; J2405; J2704; J3010; J7030

== ENCOUNTER → 2023-08-15 | Outpatient (CLI) | payer OTHER ==
[2023-08-15 12:00] LABS: Basophils # (auto) 0.1 10 ^3/uL (0-0.2); Basophils % (auto) 0.8 % (0.0-2.0); Eosinophils # (auto) 0 10 ^3/uL (0-0.8); Eosinophils % (auto) 0.4 % (0.0-7.0); Hematocrit 40.5 % (36.0-46.0); Hemoglobin 13.6 g/dL (12.2-16.2); Lymphocytes # (auto) 2.1 10 ^3/uL (0.4-5.4); Lymphocytes % (auto) 26.1 % (10.0-50.0); Mean Corpuscular Hemoglobin 31.9 pg (28.0-32.0); Mean Corpuscular Hgb Conc. 33.4 g/dL (32.0-36.0); Mean Corpuscular Volume 95.2 fL (80.0-100.0); Monocytes # (auto) 0.5 10 ^3/uL (0-1.3); Monocytes % (auto) 6.7 % (0.0-12.0); Neutrophils # (auto) 5.2 10 ^3/uL (1.6-8.6); Nucleated Red Blood Cells % 0.1 %; Red Blood Cells 4.26 10^6/uL (4.0-5.20); Red Cell Distribution Width 14.8 % (11.8-14.3); White Blood Cell 7.9 10^3/uL (4.4-10.8)
[2023-08-15 12:40] LABS: Albumin 4.6 g/dL (3.2-4.8); Alkaline Phosphatase 90 U/L (46-116); Amylase 70 U/L (30-118); Anion Gap 7 (5-15); Aspartate Aminotransferase 21 U/L (13-40); BUN/Creatinine Ratio 19.6 (10.0-20.0); Blood Urea Nitrogen 18 mg/dL (9-23); Calcium 9.5 mg/dL (8.5-10.1); Carbon Dioxide 27 mmol/L (20-30); Chloride 96 mmol/L (98-107); Glucose 116 mg/dL (74-106); Potassium 3.8 mmol/L (3.5-5.1); Sodium 130 mmol/L (136-145)
[2023-08-15 12:41] LABS: Total Protein 7.3 g/dL (5.7-8.2)
[2023-08-15 13:05] LABS: Bilirubin, Total 0.6 mg/dL (0.2-1.0)
[2023-08-15 13:11] LABS: Alanine Aminotransferase < 9 U/L (7-40)
[2023-08-15 13:21] LABS: Lipase 60 U/L (12-53)
== END | disposition home or self-care (01) ==
LOC: LAB 11:40
PROVIDERS: ATTEND Internal Medicine
DX: K21.9 Gastro-esophageal reflux disease without esophagitis (principal)
CPT/HCPCS: 36415; 80053; 82150; 83690; 85025

== ENCOUNTER → 2023-12-21 | Outpatient (CLI) | payer OTHER ==
[2023-12-21 09:14] LABS: Basophils # (auto) 0.1 10 ^3/uL (0-0.2); Basophils % (auto) 0.9 % (0.0-2.0); Eosinophils # (auto) 0 10 ^3/uL (0-0.8); Eosinophils % (auto) 0.8 % (0.0-7.0); Hematocrit 39.5 % (36.0-46.0); Hemoglobin 13.3 g/dL (12.2-16.2); Lymphocytes # (auto) 1.9 10 ^3/uL (0.4-5.4); Lymphocytes % (auto) 32.6 % (10.0-50.0); Mean Corpuscular Hemoglobin 32.4 pg (28.0-32.0); Mean Corpuscular Hgb Conc. 33.7 g/dL (32.0-36.0); Monocytes # (auto) 0.6 10 ^3/uL (0-1.3); Monocytes % (auto) 10.9 % (0.0-12.0); Neutrophils # (auto) 3.2 10 ^3/uL (1.6-8.6); Neutrophils % (auto) 54.8 % (37.0-80.0); Nucleated Red Blood Cells % 0.1 %; Red Blood Cells 4.11 10^6/uL (4.0-5.20); Red Cell Distribution Width 13.4 % (11.8-14.3); White Blood Cell 5.8 10^3/uL (4.4-10.8)
[2023-12-21 09:34] LABS: Urine Bacteria FEW /hpf (None Seen); Urine Blood Negative /uL (Negative); Urine Clarity Clear (Clear); Urine Color Yellow (Yellow); Urine Mucus FEW (None Seen); Urine Protein, UAD 1+ (Negative); Urine Specific Gravity 1.016 (1.001-1.035); Urine Urobilinogen Normal (Negative); Urine WBC 2 /hpf (0 - 5)
[2023-12-21 09:44] LABS: Erythrocyte Sedimentation Rate 8 mm/hr (0-20)
[2023-12-21 10:28] LABS: Albumin 4.5 g/dL (3.2-4.8); Alkaline Phosphatase 102 U/L (46-116); Amylase 69 U/L (30-118); Anion Gap 5 (5-15); Aspartate Aminotransferase 25 U/L (13-40); BUN/Creatinine Ratio 18.2 (10.0-20.0); Blood Urea Nitrogen 16 mg/dL (9-23); Calcium 9.5 mg/dL (8.5-10.1); Carbon Dioxide 30 mmol/L (20-30); Chloride 100 mmol/L (98-107); Glucose 92 mg/dL (74-106); LDL Cholesterol 121 mg/dL (< 100); Potassium 4.3 mmol/L (3.5-5.1); Sodium 135 mmol/L (136-145); Triglycerides 62 mg/dL (< 150)
[2023-12-21 10:29] LABS: Cholesterol 226 mg/dL (< 200); HDL Cholesterol 98 mg/dL (40-59); Total Protein 7.3 g/dL (5.7-8.2)
[2023-12-21 10:38] LABS: Alanine Aminotransferase < 9 U/L (7-40); Free T4 (Free Thyroxine) 1.37 ng/dL (0.89-1.76)
[2023-12-21 10:55] LABS: Lipase 36 U/L (12-53)
[2023-12-21 10:57] LABS: Bilirubin, Total 0.5 mg/dL (0.2-1.0)
== END | disposition home or self-care (01) ==
LOC: LAB 08:57
PROVIDERS: ATTEND Internal Medicine
DX: I10 Essential (primary) hypertension (principal); R10.9 Unspecified abdominal pain; G20.A1 Parkinson's disease without dyskinesia, without mention of fluctuations
CPT/HCPCS: 36415; 80053; 80061; 81001; 82150; 82607; 83690; 84439; 84443; 85025; 85652; 86301

== ENCOUNTER 2024-03-28 07:48 | Inpatient (IN) | payer OTHER ==
[~2024-03-28] VITALS: Ht 154.9 cm; Wt 69.6 kg
[2024-03-28 08:05] VITALS: PULSE 73; RESP 17; O2SAT 94
[2024-03-28] MEDS: ONDANSETRON HCL 4 MG/2 ML VIAL IV ONE (08:30)
[2024-03-28] MEDS: HYDROmorphone HCL 2 MG/ML VL/or syr IV ONE (08:30)
[2024-03-28 11:01] LABS: Urine Bacteria None Seen /hpf (None Seen)
[2024-03-28 11:06] LABS: Basophils # (auto) 0 10 ^3/uL (0-0.2); Basophils % (auto) 0.5 % (0.0-2.0); Eosinophils # (auto) 0 10 ^3/uL (0-0.8); Eosinophils % (auto) 0.6 % (0.0-7.0); Hemoglobin 12.1 g/dL (12.2-16.2); Lymphocytes # (auto) 1.1 10 ^3/uL (0.4-5.4); Mean Corpuscular Hemoglobin 32.9 pg (28.0-32.0); Mean Corpuscular Hgb Conc. 33.6 g/dL (32.0-36.0); Mean Corpuscular Volume 97.7 fL (80.0-100.0); Monocytes # (auto) 0.4 10 ^3/uL (0-1.3); Monocytes % (auto) 6.3 % (0.0-12.0); Neutrophils # (auto) 4.4 10 ^3/uL (1.6-8.6); Neutrophils % (auto) 74.6 % (37.0-80.0); Nucleated Red Blood Cells % 0.1 %; Red Blood Cells 3.69 10^6/uL (4.0-5.20); Red Cell Distribution Width 13.4 % (11.8-14.3); White Blood Cell 5.9 10^3/uL (4.4-10.8)
[2024-03-28 11:12] LABS: Chloride 99 mmol/L (98-107); Potassium 4.2 mmol/L (3.5-5.1); Sodium 132 mmol/L (136-145)
[2024-03-28 11:13] LABS: Anion Gap 3 (5-15); Carbon Dioxide 30 mmol/L (20-30)
[2024-03-28 11:14] LABS: Calcium 9.3 mg/dL (8.5-10.1)
[2024-03-28 11:18] LABS: Glucose 116 mg/dL (74-106)
[2024-03-28 11:19] LABS: BUN/Creatinine Ratio 23.3 (10.0-20.0); Blood Urea Nitrogen 17 mg/dL (9-23)
[2024-03-28 11:30] LABS: Urine Blood Negative /uL (Negative); Urine Clarity Clear (Clear); Urine Color Light-Yellow (Yellow); Urine Protein, UAD TRACE (Negative); Urine Urobilinogen Normal (Negative); Urine WBC <1 /hpf (0 - 5); Urine pH 6.5 (5.0-9.0)
[2024-03-28] MEDS ORDERED: MORPHINE SULFATE INJ 2 MG/ml SYRG IV PRN (11:30)
[2024-03-28] MEDS ORDERED: ONDANSETRON HCL 4 MG/2 ML VIAL IV PRN (11:30)
[2024-03-28] MEDS: SODIUM CHLORIDE 0.9% 1,000 ML IV SCH (11:50)
[2024-03-28] MEDS: ENOXAPARIN SOD 40 MG/0.4 ML SYRINGE SC SCH (13:13)
[2024-03-28 13:27] LABS: INR 0.98 (0.9-1.15); Prothrombin Time 10.4 sec (9.3-11.8)
[2024-03-28] MEDS: HYDROmorphone HCL 2 MG/ML VL/or syr IV PRN (14:23)
[2024-03-28 15:12] VITALS: BP 165/97; PULSE 72; RESP 16; TEMP 98.8; O2SAT 98
[2024-03-28 15:24] VITALS: BP 165/97; PULSE 72; RESP 18; TEMP 98.8; O2SAT 98
[2024-03-28 16:50] VITALS: BP 143/68; PULSE 74; RESP 16; TEMP 97.9; O2SAT 96
[2024-03-28] MEDS ORDERED: ESTR1TAB6 PO (17:05)
[2024-03-28] MEDS ORDERED: ACET650T12 PO (17:05)
[2024-03-28] MEDS ORDERED: DOCU-94 PO (17:05)
[2024-03-28] MEDS ORDERED: FLUT50AE5 IN (17:05)
[2024-03-28 20:00] VITALS: PULSE 68; RESP 18
[2024-03-28 21:00] VITALS: BP 166/71; PULSE 68; RESP 18; TEMP 98.8; O2SAT 98
[2024-03-28] MEDS: CARBIDOPA W LEVODOPA 25/250mg TABLET PO SCH (23:10)
[2024-03-28] MEDS: LISINOPRIL 20 MG TAB PO SCH (23:11)
[2024-03-29] VITALS (7 sets, daily range): BP systolic 144–172; BP diastolic 61–77; PULSE 66–89; RESP 16–18; TEMP 97.7–98.7; O2SAT 93–100
[2024-03-29] MEDS: ACETAMINOPHEN 500 MG TAB PO PRN (01:28)
[2024-03-29] MEDS: ALPRAZolam 0.25 MG TAB PO PRN (01:28)
[2024-03-29] MEDS: IBUPROFEN 400 MG TAB PO ONE (03:45)
[2024-03-29 05:12] LABS: Basophils # (auto) 0 10 ^3/uL (0-0.2); Basophils % (auto) 0.8 % (0.0-2.0); Eosinophils # (auto) 0.1 10 ^3/uL (0-0.8); Eosinophils % (auto) 1.2 % (0.0-7.0); Hematocrit 35.1 % (36.0-46.0); Hemoglobin 11.9 g/dL (12.2-16.2); Lymphocytes # (auto) 1.7 10 ^3/uL (0.4-5.4); Lymphocytes % (auto) 26.6 % (10.0-50.0); Mean Corpuscular Hemoglobin 33.3 pg (28.0-32.0); Mean Corpuscular Hgb Conc. 33.8 g/dL (32.0-36.0); Mean Corpuscular Volume 98.5 fL (80.0-100.0); Monocytes # (auto) 0.7 10 ^3/uL (0-1.3); Monocytes % (auto) 11.3 % (0.0-12.0); Neutrophils # (auto) 3.8 10 ^3/uL (1.6-8.6); Neutrophils % (auto) 60.1 % (37.0-80.0); Nucleated Red Blood Cells % 0.1 %; Red Blood Cells 3.57 10^6/uL (4.0-5.20); White Blood Cell 6.3 10^3/uL (4.4-10.8)
[2024-03-29 05:17] LABS: Alkaline Phosphatase 144 U/L (46-116); Anion Gap 4 (5-15); Aspartate Aminotransferase 33 U/L (13-40); BUN/Creatinine Ratio 22.2 (10.0-20.0); Bilirubin, Total 0.6 mg/dL (0.2-1.0); Blood Urea Nitrogen 16 mg/dL (9-23); Calcium 9.1 mg/dL (8.5-10.1); Carbon Dioxide 29 mmol/L (20-30); Chloride 99 mmol/L (98-107); Glucose 102 mg/dL (74-106); Potassium 4.2 mmol/L (3.5-5.1); Sodium 132 mmol/L (136-145); Total Protein 6.4 g/dL (5.7-8.2)
[2024-03-29 05:26] LABS: Alanine Aminotransferase < 9 U/L (7-40)
[2024-03-29] MEDS: traMADol HCL 50 MG TAB PO ONE (05:44)
[2024-03-29] MEDS: amLODIPine BESYLATE 5 MG TAB PO SCH (08:51)
[2024-03-29] MEDS: PANTOPRAZOLE 40 MG TAB PO SCH (08:52)
[2024-03-29] MEDS: ENOXAPARIN SOD 40 MG/0.4 ML SYRINGE SC SCH (10:00)
[2024-03-29] MEDS ORDERED: LISINOPRIL 20 MG TAB PO SCH (10:00)
[2024-03-29] MEDS ORDERED: IBUPROFEN 400 MG TAB PO PRN (14:00)
[2024-03-29] MEDS: traMADol HCL 50 MG TAB PO PRN (14:19)
[2024-03-29] MEDS: DOCUSATE SOD 100 MG CAP PO PRN (14:19)
[2024-03-29] MEDS ORDERED: HYDROcodone-ACET 5/325MG TAB PO PRN (17:45)
[2024-03-29] MEDS: amLODIPine BESYLATE 5 MG TAB PO ONE (20:27)
[2024-03-29] MEDS: CYCLOBENZAPRINE HCL 10 MG TAB PO SCH (23:04)
[2024-03-30] VITALS (8 sets, daily range): BP systolic 136–154; BP diastolic 60–77; PULSE 60–79; RESP 16–20; TEMP 97.4–98.1; O2SAT 96–99
[2024-03-30 06:28] LABS: Basophils # (auto) 0.1 10 ^3/uL (0-0.2); Basophils % (auto) 0.9 % (0.0-2.0); Eosinophils # (auto) 0.1 10 ^3/uL (0-0.8); Eosinophils % (auto) 1.9 % (0.0-7.0); Hematocrit 36.4 % (36.0-46.0); Hemoglobin 12.5 g/dL (12.2-16.2); Lymphocytes # (auto) 1.7 10 ^3/uL (0.4-5.4); Lymphocytes % (auto) 27.2 % (10.0-50.0); Mean Corpuscular Hemoglobin 33.7 pg (28.0-32.0); Mean Corpuscular Hgb Conc. 34.4 g/dL (32.0-36.0); Mean Corpuscular Volume 97.8 fL (80.0-100.0); Monocytes # (auto) 0.8 10 ^3/uL (0-1.3); Monocytes % (auto) 12.5 % (0.0-12.0); Neutrophils # (auto) 3.6 10 ^3/uL (1.6-8.6); Neutrophils % (auto) 57.5 % (37.0-80.0); Red Blood Cells 3.73 10^6/uL (4.0-5.20); Red Cell Distribution Width 13.4 % (11.8-14.3); White Blood Cell 6.3 10^3/uL (4.4-10.8)
[2024-03-30 06:40] LABS: Anion Gap 6 (5-15); Calcium 9.5 mg/dL (8.7-10.4); Carbon Dioxide 30 mmol/L (20-30); Chloride 97 mmol/L (98-107); Potassium 4.2 mmol/L (3.5-5.1); Sodium 133 mmol/L (136-145)
[2024-03-30 06:46] LABS: Blood Urea Nitrogen 14 mg/dL (9-23); Glucose 90 mg/dL (74-106); Magnesium 1.9 mg/dL (1.6-2.6)
[2024-03-30 07:46] LABS: Partial Thromboplastin Time 26.8 SEC (24.5-34.5); Prothrombin Time 10.6 sec (9.3-11.8)
[2024-03-30] MEDS ORDERED: ENOXAPARIN SOD 40 MG/0.4 ML SYRINGE SC SCH (10:00)
[2024-03-30] MEDS: ENOXAPARIN SOD 40 MG/0.4 ML SYRINGE SC SCH (10:44)
[2024-03-30] MEDS: amLODIPine BESYLATE 5 MG TAB PO SCH (10:46)
[2024-03-30] MEDS ORDERED: DOCUSATE SOD 100 MG CAP PO PRN (18:15)
[2024-03-30] MEDS: cefTRIAXone 1GM/50ML D5W 50 ML IV ONE (22:04)
[2024-03-31] VITALS (8 sets, daily range): BP systolic 99–134; BP diastolic 59–77; PULSE 68–76; RESP 15–20; TEMP 97.7–98.7; O2SAT 91–96
[2024-03-31] MEDS: cefTRIAXone 1GM/50ML D5W 50 ML IV SCH (10:30)
[2024-03-31] MEDS: Glucerna Carbsteady SHAKE Vanilla 8oz PO SCH (12:00)
[2024-04-01 07:01] LABS: Basophils # (auto) 0 10 ^3/uL (0-0.2); Basophils % (auto) 0.7 % (0.0-2.0); Eosinophils # (auto) 0.2 10 ^3/uL (0-0.8); Eosinophils % (auto) 2.5 % (0.0-7.0); Hematocrit 37.8 % (36.0-46.0); Lymphocytes # (auto) 1.5 10 ^3/uL (0.4-5.4); Lymphocytes % (auto) 23.5 % (10.0-50.0); Mean Corpuscular Hemoglobin 33.9 pg (28.0-32.0); Mean Corpuscular Hgb Conc. 34.5 g/dL (32.0-36.0); Mean Corpuscular Volume 98.3 fL (80.0-100.0); Monocytes # (auto) 0.5 10 ^3/uL (0-1.3); Monocytes % (auto) 8.3 % (0.0-12.0); Neutrophils # (auto) 4.2 10 ^3/uL (1.6-8.6); Nucleated Red Blood Cells % 0.2 %; Red Blood Cells 3.84 10^6/uL (4.0-5.20); Red Cell Distribution Width 13.5 % (11.8-14.3); White Blood Cell 6.4 10^3/uL (4.4-10.8)
[2024-04-01 08:00] VITALS: PULSE 77; RESP 16; O2SAT 95
[2024-04-01 08:59] VITALS: BP 125/74; PULSE 80; RESP 18; TEMP 98; O2SAT 92
[2024-04-01 11:28] LABS: Urine Bacteria None Seen /hpf (None Seen)
[2024-04-01 12:40] VITALS: BP 116/66; PULSE 77; RESP 16; TEMP 97.8; O2SAT 95
[2024-04-01 12:42] LABS: Urine Blood Negative /uL (Negative); Urine Clarity Clear (Clear); Urine Color Yellow (Yellow); Urine Protein, UAD 1+ (Negative); Urine Specific Gravity 1.012 (1.001-1.035); Urine Urobilinogen Normal (Negative); Urine WBC 4 /hpf (0 - 5); Urine pH 6.5 (5.0-9.0)
[2024-04-01 13:50] LABS: Chloride 97 mmol/L (98-107); Sodium 131 mmol/L (136-145)
[2024-04-01 13:54] LABS: Calcium 9.4 mg/dL (8.5-10.1)
[2024-04-01 13:59] LABS: Glucose 134 mg/dL (74-106)
[2024-04-01 14:01] LABS: BUN/Creatinine Ratio 19.2 (10.0-20.0); Blood Urea Nitrogen 15 mg/dL (9-23); Potassium 4.1 mmol/L (3.5-5.1)
[2024-04-01] MEDS: LACTULOSE 20Gm/30ML SOLN PO SCH (14:52)
[2024-04-01 16:33] LABS: Anion Gap 6 (5-15); Carbon Dioxide 28 mmol/L (20-30)
[2024-04-01 17:00] VITALS: BP 105/46; PULSE 60; RESP 18; TEMP 97.8; O2SAT 92
[2024-04-01 20:00] VITALS: PULSE 77; RESP 16; O2SAT 95
[2024-04-01 21:00] VITALS: BP 116/71; PULSE 95; RESP 18; TEMP 97.5; O2SAT 94
[2024-04-02] VITALS (8 sets, daily range): BP systolic 116–134; BP diastolic 63–74; PULSE 82–92; RESP 15–19; TEMP 97.4–98.8; O2SAT 94–97
[2024-04-02 07:12] LABS: Basophils # (auto) 0.1 10 ^3/uL (0-0.2); Eosinophils # (auto) 0.1 10 ^3/uL (0-0.8); Hemoglobin 13.8 g/dL (12.2-16.2); Nucleated Red Blood Cells % 0.1 %; Red Cell Distribution Width 13.8 % (11.8-14.3)
[2024-04-02 07:14] LABS: Eosinophils % (auto) 1.8 % (0.0-7.0); Hematocrit 39.9 % (36.0-46.0); Lymphocytes # (auto) 1.9 10 ^3/uL (0.4-5.4); Lymphocytes % (auto) 25.8 % (10.0-50.0); Mean Corpuscular Hemoglobin 33.5 pg (28.0-32.0); Mean Corpuscular Hgb Conc. 34.5 g/dL (32.0-36.0); Mean Corpuscular Volume 97.1 fL (80.0-100.0); Monocytes # (auto) 0.5 10 ^3/uL (0-1.3); Monocytes % (auto) 6.7 % (0.0-12.0); Neutrophils # (auto) 4.7 10 ^3/uL (1.6-8.6); Neutrophils % (auto) 64.7 % (37.0-80.0); Red Blood Cells 4.11 10^6/uL (4.0-5.20); White Blood Cell 7.3 10^3/uL (4.4-10.8)
[2024-04-02 07:17] LABS: Albumin 4.7 g/dL (3.2-4.8); Alkaline Phosphatase 161 U/L (46-116); Anion Gap 11 (5-15); Aspartate Aminotransferase 34 U/L (13-40); BUN/Creatinine Ratio 16.3 (10.0-20.0); Blood Urea Nitrogen 16 mg/dL (9-23); Carbon Dioxide 26 mmol/L (20-30); Chloride 94 mmol/L (98-107); Glucose 126 mg/dL (74-106); Magnesium 1.9 mg/dL (1.6-2.6); Potassium 3.4 mmol/L (3.5-5.1); Sodium 131 mmol/L (136-145)
[2024-04-02 07:18] LABS: Alanine Aminotransferase < 9 U/L (7-40); Bilirubin, Total 0.6 mg/dL (0.2-1.0); Total Protein 7.6 g/dL (5.7-8.2)
[2024-04-02] MEDS: POTASSIUM CHL 20MEQ/100ML 100 ML IV ONE (09:00)
[2024-04-02] MEDS ORDERED: LACTULOSE 20Gm/30ML SOLN PO SCH (10:00)
[2024-04-02] MEDS: AMPICILLIN SOD 2GM INJ 2 GM in SODIUM CHL 0.9% 100 ML IV SCH (18:00)
[2024-04-03] VITALS (8 sets, daily range): BP systolic 110–133; BP diastolic 52–90; PULSE 87–107; RESP 18–22; TEMP 97.9–99.4; O2SAT 87–98
[2024-04-03] MEDS: POTASSIUM CHL 20 Meq TABLET PO ONE (04:25)
[2024-04-03] MEDS: AMPICILLIN SOD 2GM INJ 2 GM in SODIUM CHL 0.9% 100 ML IV SCH (04:26)
[2024-04-03 08:24] LABS: Basophils # (auto) 0 10 ^3/uL (0-0.2); Basophils % (auto) 0.7 % (0.0-2.0); Eosinophils # (auto) 0.1 10 ^3/uL (0-0.8); Eosinophils % (auto) 1.7 % (0.0-7.0); Hematocrit 36.1 % (36.0-46.0); Hemoglobin 12.5 g/dL (12.2-16.2); Lymphocytes # (auto) 1.3 10 ^3/uL (0.4-5.4); Lymphocytes % (auto) 20.1 % (10.0-50.0); Mean Corpuscular Hgb Conc. 34.7 g/dL (32.0-36.0); Monocytes # (auto) 0.8 10 ^3/uL (0-1.3); Monocytes % (auto) 11.9 % (0.0-12.0); Neutrophils # (auto) 4.4 10 ^3/uL (1.6-8.6); Neutrophils % (auto) 65.6 % (37.0-80.0); Nucleated Red Blood Cells % 0.1 %; Red Blood Cells 3.69 10^6/uL (4.0-5.20); Red Cell Distribution Width 13.7 % (11.8-14.3); White Blood Cell 6.6 10^3/uL (4.4-10.8)
[2024-04-03 08:29] LABS: Alanine Aminotransferase 14 U/L (7-40); Albumin 4.2 g/dL (3.2-4.8); Alkaline Phosphatase 145 U/L (46-116); Anion Gap 4 (5-15); Aspartate Aminotransferase 36 U/L (13-40); BUN/Creatinine Ratio 21.4 (10.0-20.0); Blood Urea Nitrogen 18 mg/dL (9-23); Calcium 9.3 mg/dL (8.5-10.1); Carbon Dioxide 28 mmol/L (20-30); Chloride 100 mmol/L (98-107); Glucose 103 mg/dL (74-106); Potassium 3.9 mmol/L (3.5-5.1); Sodium 132 mmol/L (136-145)
[2024-04-03 08:30] LABS: Bilirubin, Total 0.6 mg/dL (0.2-1.0); Total Protein 6.7 g/dL (5.7-8.2)
[2024-04-03] MEDS: ALPRAZolam 0.5 MG TAB PO ONE (20:30)
[2024-04-03 23:21] LABS: Urine Bacteria None Seen /hpf (None Seen)
[2024-04-03 23:30] LABS: Urine Blood TRACE /uL (Negative); Urine Clarity Clear (Clear); Urine Color Light-Yellow (Yellow); Urine Protein, UAD Negative (Negative); Urine Specific Gravity 1.008 (1.001-1.035); Urine Urobilinogen Normal (Negative); Urine WBC <1 /hpf (0 - 5); Urine pH 5.5 (5.0-9.0)
[2024-04-04 01:00] VITALS: BP 129/78; PULSE 81; RESP 18; TEMP 97.3; O2SAT 99
[2024-04-04 05:00] VITALS: BP 122/70; PULSE 71; RESP 16; TEMP 97.5; O2SAT 100
[2024-04-04] MEDS ORDERED: TRANEXAMIC ACID 20 ML ONE (06:32)
[2024-04-04] MEDS ORDERED: LIDOCAINE W/ EPINEPHRINE 1% 20ML VIAL ONE (06:32)
[2024-04-04] MEDS ORDERED: LIDOCAINE 2% JELLY 11ml (GLYDO) ONE (06:32)
[2024-04-04] MEDS ORDERED: MIDAZOLAM HCL 2MG/2ML 2ml VIAL (1mg/ml) ONE (07:19)
[2024-04-04] MEDS ORDERED: fentaNYL CITRATE 100 MCG/2 ML VL ONE (07:19)
[2024-04-04] MEDS ORDERED: ceFAZolin 2 GM/D5W50ml 50 ML IV ONE (07:22)
[2024-04-04] MEDS ORDERED: DexAMETHasone SOD PHOS 10MG/1ML VIAL INJ ONE (08:06)
[2024-04-04] MEDS ORDERED: PROPOFOL 10 MG/ML 20 ML IV ONE (08:06)
[2024-04-04] MEDS ORDERED: LABETALOL HCL 5 MG/ML 4ML SYRINGE IV PRN (08:30)
[2024-04-04] MEDS ORDERED: ePHEDrine SULFATE 50 MG/ML AMP IV PRN (08:30)
[2024-04-04] MEDS ORDERED: MORPHINE SULFATE 4 MG/ML SYR/VIAL IV PRN (08:30)
[2024-04-04] MEDS ORDERED: HYDROmorphone HCL 2 MG/ML VL/or syr IV PRN (08:30)
[2024-04-04] MEDS ORDERED: MIDAZOLAM HCL 2MG/2ML 2ml VIAL (1mg/ml) IV PRN (08:30)
[2024-04-04] MEDS ORDERED: ONDANSETRON HCL 4 MG/2 ML VIAL IV ONE (08:30)
[2024-04-04] MEDS: FLEET MINERAL OIL ENEMA 133 ML PR ONE (10:00)
[2024-04-04 10:25] VITALS: O2SAT 100
[2024-04-04 17:00] VITALS: BP 122/72; PULSE 67; RESP 17; TEMP 96.6; O2SAT 100
[2024-04-04 20:00] VITALS: PULSE 74; RESP 18; O2SAT 98
[2024-04-04 21:00] VITALS: BP 125/66; PULSE 74; RESP 18; TEMP 97.1; O2SAT 95
[2024-04-05] VITALS (9 sets, daily range): BP systolic 102–136; BP diastolic 61–78; PULSE 71–86; RESP 16–20; TEMP 97.8–99.2; O2SAT 92–98
[2024-04-05] MEDS ORDERED: ALBUTEROL SULF 2.5 MG/0.5ML(0.5%) NEB SOLN NEB PRN (08:00)
[2024-04-05] MEDS ORDERED: NITROFURANTOIN 100 mg CAP PO SCH (10:00)
[2024-04-05] MEDS: MORPHINE SULFATE INJ 2 MG/ml SYRG IV PRN (10:25)
[2024-04-05] MEDS: AMPICILLIN SOD 2GM INJ 2 GM in SODIUM CHL 0.9% 100 ML IV SCH (12:01)
[2024-04-05] MEDS: BISACODYL 10 MG RECT SUPP PR PRN (17:46)
[2024-04-06] VITALS (11 sets, daily range): BP systolic 102–121; BP diastolic 59–67; PULSE 67–87; RESP 16–19; TEMP 98.1–98.7; O2SAT 91–95
[2024-04-06 08:36] LABS: Basophils # (auto) 0 10 ^3/uL (0-0.2); Basophils % (auto) 0.2 % (0.0-2.0); Mean Corpuscular Hemoglobin 34.2 pg (28.0-32.0); Monocytes # (auto) 0.9 10 ^3/uL (0-1.3); Neutrophils % (auto) 74.6 % (37.0-80.0)
[2024-04-06 08:38] LABS: Eosinophils # (auto) 0 10 ^3/uL (0-0.8); Eosinophils % (auto) 0.5 % (0.0-7.0); Hematocrit 30.9 % (36.0-46.0); Hemoglobin 10.8 g/dL (12.2-16.2); Lymphocytes # (auto) 1.2 10 ^3/uL (0.4-5.4); Mean Corpuscular Hgb Conc. 34.9 g/dL (32.0-36.0); Mean Corpuscular Volume 97.9 fL (80.0-100.0); Monocytes % (auto) 10.7 % (0.0-12.0); Neutrophils # (auto) 6.2 10 ^3/uL (1.6-8.6); Red Blood Cells 3.16 10^6/uL (4.0-5.20); Red Cell Distribution Width 13.8 % (11.8-14.3); White Blood Cell 8.3 10^3/uL (4.4-10.8)
[2024-04-06 08:52] LABS: Alanine Aminotransferase 18 U/L (7-40); Albumin 3.4 g/dL (3.2-4.8); Alkaline Phosphatase 114 U/L (46-116); Anion Gap 4 (5-15); Aspartate Aminotransferase 35 U/L (13-40); BUN/Creatinine Ratio 25.8 (10.0-20.0); Bilirubin, Total 0.4 mg/dL (0.2-1.0); Blood Urea Nitrogen 17 mg/dL (9-23); Calcium 8.6 mg/dL (8.5-10.1); Carbon Dioxide 27 mmol/L (20-30); Chloride 101 mmol/L (98-107); Glucose 119 mg/dL (74-106); Magnesium 1.9 mg/dL (1.6-2.6); Potassium 3.9 mmol/L (3.5-5.1); Sodium 132 mmol/L (136-145); Total Protein 5.6 g/dL (5.7-8.2)
[2024-04-06] MEDS: ALPRAZolam 0.25 MG TAB PO PRN (19:54)
[2024-04-07] VITALS (10 sets, daily range): BP systolic 111–140; BP diastolic 52–76; PULSE 81–88; RESP 16–19; TEMP 97.8–98.2; O2SAT 90–98
[2024-04-07 07:01] LABS: Basophils # (auto) 0 10 ^3/uL (0-0.2); Basophils % (auto) 0.4 % (0.0-2.0); Eosinophils # (auto) 0.2 10 ^3/uL (0-0.8); Eosinophils % (auto) 3.3 % (0.0-7.0); Hematocrit 32.6 % (36.0-46.0); Hemoglobin 11.2 g/dL (12.2-16.2); Lymphocytes # (auto) 0.9 10 ^3/uL (0.4-5.4); Lymphocytes % (auto) 13.3 % (10.0-50.0); Mean Corpuscular Hemoglobin 33.4 pg (28.0-32.0); Mean Corpuscular Hgb Conc. 34.3 g/dL (32.0-36.0); Mean Corpuscular Volume 97.2 fL (80.0-100.0); Monocytes # (auto) 0.8 10 ^3/uL (0-1.3); Monocytes % (auto) 11.6 % (0.0-12.0); Neutrophils % (auto) 71.4 % (37.0-80.0); Nucleated Red Blood Cells % 0.1 %; Red Blood Cells 3.35 10^6/uL (4.0-5.20); Red Cell Distribution Width 13.4 % (11.8-14.3)
[2024-04-07 07:13] LABS: Chloride 102 mmol/L (98-107); Potassium 3.9 mmol/L (3.5-5.1); Sodium 135 mmol/L (136-145)
[2024-04-07 07:14] LABS: Anion Gap 5 (5-15); Calcium 8.7 mg/dL (8.5-10.1); Carbon Dioxide 28 mmol/L (20-30)
[2024-04-07 07:19] LABS: BUN/Creatinine Ratio 20.7 (10.0-20.0); Blood Urea Nitrogen 12 mg/dL (9-23); Glucose 110 mg/dL (74-106)
[2024-04-07] MEDS: ALPRAZolam 0.25 MG TAB PO PRN (18:43)
[2024-04-08] VITALS (7 sets, daily range): BP systolic 111–141; BP diastolic 56–77; PULSE 81–91; RESP 18–19; TEMP 97.9–98.5; O2SAT 90–94
[2024-04-08 07:26] LABS: Basophils # (auto) 0 10 ^3/uL (0-0.2); Basophils % (auto) 0.4 % (0.0-2.0); Eosinophils # (auto) 0.3 10 ^3/uL (0-0.8); Eosinophils % (auto) 3.9 % (0.0-7.0); Hematocrit 32.6 % (36.0-46.0); Hemoglobin 11.2 g/dL (12.2-16.2); Lymphocytes % (auto) 15.6 % (10.0-50.0); Mean Corpuscular Hemoglobin 33.2 pg (28.0-32.0); Mean Corpuscular Hgb Conc. 34.2 g/dL (32.0-36.0); Mean Corpuscular Volume 97.2 fL (80.0-100.0); Monocytes # (auto) 0.7 10 ^3/uL (0-1.3); Neutrophils # (auto) 4.4 10 ^3/uL (1.6-8.6); Neutrophils % (auto) 69.1 % (37.0-80.0); Nucleated Red Blood Cells % 0.1 %; Red Blood Cells 3.36 10^6/uL (4.0-5.20); Red Cell Distribution Width 13.4 % (11.8-14.3); White Blood Cell 6.4 10^3/uL (4.4-10.8)
[2024-04-08 07:56] LABS: Alanine Aminotransferase 11 U/L (7-40); Albumin 3.5 g/dL (3.2-4.8); Alkaline Phosphatase 120 U/L (46-116); Anion Gap 5 (5-15); Aspartate Aminotransferase 38 U/L (13-40); BUN/Creatinine Ratio 16.4 (10.0-20.0); Bilirubin, Total 0.4 mg/dL (0.2-1.0); Blood Urea Nitrogen 9 mg/dL (9-23); Calcium 8.9 mg/dL (8.5-10.1); Carbon Dioxide 28 mmol/L (20-30); Chloride 102 mmol/L (98-107); Glucose 108 mg/dL (74-106); Potassium 3.5 mmol/L (3.5-5.1); Sodium 135 mmol/L (136-145); Total Protein 5.8 g/dL (5.7-8.2)
[2024-04-08] MEDS: ACETAMINOPHEN 500 MG TAB PO PRN (16:37)
[2024-04-09] VITALS (7 sets, daily range): BP systolic 115–146; BP diastolic 57–77; PULSE 80–90; RESP 14–18; TEMP 97.9–98.4; O2SAT 92–96
[2024-04-09] MEDS ORDERED: HYDR-4902 PO (07:21)
[2024-04-09] MEDS ORDERED: DOCU-265 PO (07:21)
[2024-04-09] MEDS ORDERED: CYCL-611 PO (07:21)
[2024-04-09 17:52] LABS: Urine Bacteria None Seen /hpf (None Seen)
[2024-04-09 18:50] LABS: Urine Amorphous Crystal FEW /hpf (None Seen); Urine Blood Negative /uL (Negative); Urine Clarity Clear (Clear); Urine Color Light-Yellow (Yellow); Urine Protein, UAD Negative (Negative); Urine Specific Gravity 1.008 (1.001-1.035); Urine Urobilinogen Normal (Negative); Urine WBC <1 /hpf (0 - 5); Urine pH 7.5 (5.0-9.0)
[2024-04-10] VITALS (7 sets, daily range): BP systolic 119–145; BP diastolic 51–76; PULSE 75–88; RESP 15–20; TEMP 36.6; O2SAT 91–96
[2024-04-10] MEDS: ALBUTEROL SULF 2.5 MG/0.5ML(0.5%) NEB SOLN NEB SCH (12:18)
== END 2024-04-10 13:25 | disposition home health service (06) | DRG 460 ==
LOC: EDBD 07:48 → ER 07:48 → OVERFLOW 12:57 → WEST WING 14:55 → TELE-WESTW 04-07 00:03 → WEST WING 04-08 18:49
PROVIDERS: ADMIT Internal Medicine; ATTEND Emergency Medicine
PROC: 01NB0ZZ Release Lumbar Nerve, Open Approach (ICD-10-PCS; 2024-04-04)
PROC: 00NY0ZZ Release Lumbar Spinal Cord, Open Approach (ICD-10-PCS; 2024-04-04)
PROC: 0QS004Z Reposition Lumbar Vertebra with Internal Fixation Device, Open Approach (ICD-10-PCS; 2024-04-04)
PROC: 4A11X4G Monitoring of Peripheral Nervous Electrical Activity, Intraoperative, External Approach (ICD-10-PCS; 2024-04-04)
PROC: 0SG1071 Fusion of 2 or more Lumbar Vertebral Joints with Autologous Tissue Substitute, Posterior Approach, Posterior Column, Open Approach (ICD-10-PCS; principal; 2024-04-04 07:28)
DX: S32.042A Unstable burst fracture of fourth lumbar vertebra, initial encounter for closed fracture (principal); N39.0 Urinary tract infection, site not specified; E78.5 Hyperlipidemia, unspecified; I10 Essential (primary) hypertension; K21.9 Gastro-esophageal reflux disease without esophagitis; M48.062 Spinal stenosis, lumbar region with neurogenic claudication; N28.1 Cyst of kidney, acquired; M54.16 Radiculopathy, lumbar region; I48.91 Unspecified atrial fibrillation; G20.A1 Parkinson's disease without dyskinesia, without mention of fluctuations; F13.10 Sedative, hypnotic or anxiolytic abuse, uncomplicated; F41.9 Anxiety disorder, unspecified; B95.2 Enterococcus as the cause of diseases classified elsewhere; I25.10 Atherosclerotic heart disease of native coronary artery without angina pectoris; X58.XXXA Exposure to other specified factors, initial encounter; Z88.6 Allergy status to analgesic agent; Z88.1 Allergy status to other antibiotic agents; Z88.8 Allergy status to other drugs, medicaments and biological substances; Z79.82 Long term (current) use of aspirin; Z79.899 Other long term (current) drug therapy; Z83.3 Family history of diabetes mellitus; Z82.49 Family history of ischemic heart disease and other diseases of the circulatory system; Z90.710 Acquired absence of both cervix and uterus; I25.2 Old myocardial infarction; Y93.89 Activity, other specified; Y92.89 Other specified places as the place of occurrence of the external cause; Y99.8 Other external cause status
CPT/HCPCS: 36415; 70450; 71045; 72100; 72131; 72148; 76000; 80048; 80053; 81001; 82140; 83036; 83735; 84443; 85025; 85610; 85730; 86850; 86900; 86901; 87086; 87088; 87186; 93005; 93306; 97110; 97116; 97163; 97530; G0378; J1100; J2250; J2405; J2704

== ENCOUNTER 2024-08-27 17:26 | Inpatient (IN) | payer OTHER ==
[~2024-08-27] VITALS: Ht 157.5 cm; Wt 65.4 kg
[~2024-08-27 17:26] MED LIST changes: +ACET650T12 PO; +ALBU108A5 IN; +ALBUAER3 IN; +AMLO1TAB22 PO; -ASPI-378 PO; +AZIT-43 PO; +CEFD300C2 PO; -CEPH-510 PO; +CYCL-611 PO; +CYCL-839 PO; +DOCU-265 PO; +DOCU-94 PO; +FURO1TAB33 PO; +PANT40TA2 PO; +POTA-180 PO
--- NOTE | 2024-08-27 17:40 | ECG ---
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
[2024-08-27 18:10] VITALS: PULSE 90; RESP 18; O2SAT 92
--- NOTE | 2024-08-27 18:29 | ED.PDOC ---
History of Present Illness HPI Comments A 84 year old female brought in by EMS presents to the ED with a chief complaint of syncope onset today. Per EMS the patient experienced a syncopal episode at home, BP was 60 systolic and was given 1L of fluids in route. Son in law states the patient was in the bathroom when he heard a loud "thump" and found the patient on the floor. Patient states she is currently experiencing generalized weakness and nausea, vomiting. She has a past medical history of HTN, HLD, CA, GERD. No other symptoms or modifying factors present at this time. Chief Complaint: Low Blood Pressure Time Seen by MD: 18:05 Primary Care Provider: UNKNOWN Reviewed Notes: Medications, Allergies Allergies: Coded Allergies: Elemental Sulfur (Verified Allergy, Mild, Abdominal pain, 04/27/22) Hydromorphone (Verified Allergy, Mild, Itching, 03/29/24) Ciprofloxacin (Verified Allergy, Unknown, 04/27/22) SEVERE NAUSEA Morphine (Verified Allergy, Unknown, 07/05/24) Itching, and hallucinates Aspirin (Verified Adverse Reaction, Mild, 07/05/24) Doesnt take due to stomach issues Home Meds Active Scripts Potassium Chloride (Potassium Chloride ER) 20 Meq Tab, 20 MEQ PO QAM for 5 Days, #5 TAB Prov:ALO SULLIVAN MD 07/11/24 Furosemide (Lasix) 20 Mg Tb, 1 TAB PO QAM for 5 Days, #5 TAB 0 Refills Prov:ALO SULLIVAN MD 07/11/24 Cefdinir (Cefdinir) 300 Mg Cap, 1 CAP PO BID, #14 CAP Prov:ALO SULLIVAN MD 07/11/24 Albuterol Sulfate (VENTOLIN MDI) 90 Mcg Ih, 90 MCG IN TIDHS for 30 Days, #30 INH Prov:ALO SULLIVAN MD 07/11/24 Azithromycin (Azithromycin) 250 Mg Tab, 250 MG PO DAILY for 2 Days, #2 TAB Prov:ALO SULLIVAN MD 07/11/24 Docusate Sodium (Docusate Sodium) 100 Mg Cap, 100 MG PO BIDPRN PRN for 10 Days, #20 CAP Prov:CODY SIN NP 04/09/24 Cyclobenzaprine HCl (Cyclobenzaprine Hydrochlo) 10 Mg Tab, 10 MG PO TID for 30 Days, #90 TAB Prov:CODY SIN NP 04/09/24 Amlodipine Besylate (NORVASC TABLET) 5 Mg Tb, 5 MG PO DAILY, #30 Prov:ANTONINO CANDELARIA MD 07/19/17 Reported Medications Amlodipine Besylate (Amlodipine Besylate) 5 Mg Tab, 1 TAB PO DAILY 07/05/24 Docusate Sodium (Colace) 100 Mg Cap, 100 MG PO, CAP 03/28/24 Acetaminophen (Acetaminophen Er) 650 Mg Tab, 650 MG PO, TAB 03/28/24 Lisinopril (Lisinopril) 40 Mg Tab, 40 MG PO DAILY for 30 Days, MG 09/16/19 Alprazolam (Xanax) 0.25 Mg Tb, 1 TAB PO BID PRN for ANXIETY, #30 TAB 01/18/18 Carbidopa-Levodopa (Carbidopa/Levodopa Odt 25-250 mg) 1 Tab Tab, 1 TAB PO BID, TAB 01/18/18 Omeprazole (PRILOSEC) 20 Mg Cap, 40 MG OR DAILY, CAP 03/03/17 Information Source: Patient, Relative (Child), Emergency Med Personnel Mode of Arrival: EMS Severity: Moderate Timing: Hours Duration: Since onset Prehospital treatment: Treatment (1L fluids) Past Medical History PAST MEDICAL HISTORY: GERD, High Lipids, HTN, CA Surgical History: Cholecystectomy, Hysterectomy, Tonsillectomy 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 BOOSTER PLANT OPERATOR History Family History Family History: Family hx of DM, Family hx of Cancer, Family hx of heart cielo, Family hx of HTN Social History Smoker: Non-Smoker Alcohol: Denies ETOH Use Drugs: Denies Drug Use Lives In: Home Constitutional: reports: weakness; denies: chills, diaphoresis, fatigue, fever, malaise, sweats, others EENTM: denies: blurred vision, double vision, ear bleeding, ear discharge, ear drainage, ear pain, ear ringing, eye pain, eye redness, hearing loss, mouth pain, mouth swelling, nasal discharge, nose bleeding, nose congestion, nose pain, photophobia, tearing, throat pain, throat swelling, voice changes, others Respiratory: denies: cough, hemoptysis, orthopnea, SOB at rest, shortness of breath, SOB with excertion, stridor, wheezing, others Cardiovascular: denies: chest pain, dizzy spells, diaphoresis, Dyspnea on exertion, edema, irregular heart beat, left arm pain, lightheadedness, palpitations, PND, syncope, others Gastrointestinal: reports: nausea, vomiting; denies: abdomen distended, abdominal pain, blood streaked bowels, constipated, diarrhea, dysphagia, diffic ulty swallowing, hematemesis, melena, poor appetite, poor fluid intake, rectal bleeding, rectal pain, others Genitourinary: denies: abnormal vagina bleeding, burning, dyspareunia, dysuria, flank pain, frequency, hematuria, incontinence, pain, , vagina discharge, urgency, others Neurological: denies: dizziness, fainting, headache, left sided numbness, left sided weakness, numbness, paresthesia, pre-existing deficit, right sided numbness, right sided weakness, seizure, speech problems, tingling, tremors, weakness, others Musculoskeletal: denies: back pain, gout, joint pain, joint swelling, muscle pain, muscle stiffness, neck pain, others Integumetry: denies: bruises, change in color, change in hair/nails, dryness, laceration, lesions, lumps, rash, wounds, others Allergic/Immunocompromised: denies: Difficulty Healing, Frequent Infections, Hives, Itching, others Hematologic/Lymphatic: denies: anemia, blood clots, easy bleeding, easy bruising, swollen glands, others Endocrine: denies: excessive hunger, excessive sweating, excessive thirst, excessive urination, flushing, intolerance to cold, intolerance to heat, unexplained weight gain, unexplained weight loss, others Psychiatric: denies: anxiety, bipolar disorder, depression, hopeless, panic disorder, schizophrenia, sleepless, suicidal, others All Other Systems: Reviewed and Negative Physical Exam General Appearance: Moderate Distress (chronically ill appearing), Normal HEENT: Normal ENT Inspection, Pharynx Normal, TMs Normal Neck: Full Range of Motion, Non-Tender, Normal, Normal Inspection Respiratory: Chest Non-Tender, Lungs Clear, No Accessory Muscle Use, No Respiratory Distress, Normal Breath Sounds Cardiovascular: No Edema, No JVD, No Murmur, No Gallop, Normal Peripheral Pulses, Regular Rate/Rhythm Breast Exam: Deferred Gastrointestinal: No Organomegaly, Non Tender, No Pulsatile Mass, Normal Bowel Sounds, Soft Genitalia: Deferred Pelvic: Deferred Rectal: Deferred Extremities: No calf tenderness, Normal capillary refill, Normal inspection, Normal range of motion, Non-tender, No pedal edema Musculoskeletal : Apperance: Normal Neurologic: Alert, marketing liaison II-XII nml as Tested, No Motor Deficits, Normal Affect, Normal Mood, No Sensory Deficits Cerebellar Function: Normal Reflexes: Normal Skin: Dry, Normal Color, Warm Lymphatic: No Adenopathy Was a procedure done? Was a procedure done?: No Differential Dx Considerations may include: ACS, electrolyte abnormality, traumatic injury, infectious etiology X-Ray, Labs, Meds, VS Vital Signs Date Time Temp Pulse Resp B/P (MAP) Pulse Ox O2 Delivery O2 Flow Rate FiO2 08/27/24 20:00 99.2 87 23 113/56 (75) 98 99.2 08/27/24 18:10 90 18 90/57 (68) 92 08/27/24 18:10 90 18 92 Nasal Cannula* 2 28 08/27/24 17:32 91 08/27/24 17:26 97.7 99 14 148/111 (123) 95 Lab Test 08/27/24 20:45 08/27/24 19:46 08/27/24 18:41 Range/Units Lactic Acid Level Pending 2.5 *H 0.4-2.0 mmol/L Troponin I High Sensitivity 31 21 </=34 ng/L White Blood Count 10.2 4.4-10.8 10^3/uL Red Blood Count 4.48 4.0-5.20 10^6/uL Hemoglobin 14.0 12.2-16.2 g/dL Hematocrit 41.8 36.0-46.0 % Mean Corpuscular Volume 93.3 80.0-100.0 fL Mean Corpuscular Hemoglobin 31.3 28.0-32.0 pg Mean Corpuscular Hemoglobin Concent 33.6 32.0-36.0 g/dL Red Cell Distribution Width 16.5 H 11.8-14.3 % Platelet Count 336 140-450 10^3/uL Mean Platelet Volume 7.5 6.9-10.8 fL Neutrophils (%) (Auto) 82.9 H 37.0-80.0 % Lymphocytes (%) (Auto) 13.0 10.0-50.0 % Monocytes (%) (Auto) 3.6 0.0-12.0 % Eosinophils (%) (Auto) 0.1 0.0-7.0 % Basophils (%) (Auto) 0.4 0.0-2.0 % Neutrophils # (Auto) 8.4 1.6-8.6 10 ^3/uL Lymphocytes # (Auto) 1.3 0.4-5.4 10 ^3/uL Monocytes # (Auto) 0.4 0-1.3 10 ^3/uL Eosinophils # (Auto) 0 0-0.8 10 ^3/uL Basophils # (Auto) 0 0-0.2 10 ^3/uL Nucleated Red Blood Cells 0.0 % Sodium Level 135 L 136-145 mmol/L Potassium Level 3.8 3.5-5.1 mmol/L Chloride Level 104 98-107 mmol/L Carbon Dioxide Level 21 20-31 mmol/L Anion Gap 10 5-15 Blood Urea Nitrogen 30 H 9-23 mg/dL Creatinine 1.38 H 0.550-1.02 mg/dL Glomerular Filtration Rate Calc 38 >90 mL/min BUN/Creatinine Ratio 21.7 H 10.0-20.0 Serum Glucose 127 H 74-106 mg/dL Calcium Level 9.5 8.7-10.4 mg/dL B-Type Natriuretic Peptide 54.36 0-100 pg/mL Current Medications Medications (Trade) Dose Ordered Sig/Zonia Route Start Time Stop Time Status Last Admin Sodium Chloride 1,000 ml @ 1,000 mls/hr Q1H ONCE IV 08/27/24 18:45 08/27/24 19:44 DC 08/27/24 18:55 Time of 1ST Reevaluation: 18:35 Reevaluation 1ST: Unchanged Patient Education/Counseling: Diagnosis, Treatment, Prognosis Family Education/Counseling: Diagnosis, Treatment, Prognosis Departure 1 Departure Time of Disposition: 21:18 (Patient presented with syncope today and should be admitted. Data: 1. I ordered and reviewed the result of at least 3 labs including a CBC, BMP, and troponin. 2. I independently interpreted the following tests: EKG which shows a sinus arrhythmia _ and a chest x-ray which shows benign chest and a CT head which shows no acute findings.Risk:This patient has a high risk of morbidity due to further diagnostic testing or treatment and may suffer from an acute cardiac, neurologic, or infectious disorder. Rationale: Patient should be admitted to the hospital for further management.) Impression: Primary Impression: Syncope and collapse Additional Impression: Generalized weakness Disposition: ADMITTED INPATIENT Admit to: Med Surg Condition: Serious Critical Care Note Critical Care Time?: No Stability Stability form required: No I personally scribed for ABEL LEBLANC MD ([email or web address]) on 08/27/24 at 18:28. Electronically submitted by Isamar Gotti ([email or web address]). I personally scribed for ABEL LEBLANC MD ([email or web address]) on 08/27/24 at 18:40. Electronically submitted by Isamar Gotti ([email or web address]). ABEL LEBLANC MD Aug 27, 2024 18:28
[2024-08-27] MEDS: SODIUM CHLORIDE 0.9% 1,000 ML IV ONE (18:55)
[2024-08-27 19:11] LABS: Basophils # (auto) 0 10 ^3/uL (0-0.2); Basophils % (auto) 0.4 % (0.0-2.0); Eosinophils # (auto) 0 10 ^3/uL (0-0.8); Eosinophils % (auto) 0.1 % (0.0-7.0); Hematocrit 41.8 % (36.0-46.0); Lymphocytes # (auto) 1.3 10 ^3/uL (0.4-5.4); Mean Corpuscular Hemoglobin 31.3 pg (28.0-32.0); Mean Corpuscular Hgb Conc. 33.6 g/dL (32.0-36.0); Mean Corpuscular Volume 93.3 fL (80.0-100.0); Monocytes # (auto) 0.4 10 ^3/uL (0-1.3); Monocytes % (auto) 3.6 % (0.0-12.0); Neutrophils # (auto) 8.4 10 ^3/uL (1.6-8.6); Neutrophils % (auto) 82.9 % (37.0-80.0); Platelet Count (auto) 336 10^3/uL (140-450); Red Blood Cells 4.48 10^6/uL (4.0-5.20); Red Cell Distribution Width 16.5 % (11.8-14.3); White Blood Cell 10.2 10^3/uL (4.4-10.8)
[2024-08-27 19:41] LABS: Chloride 104 mmol/L (98-107); Potassium 3.8 mmol/L (3.5-5.1); Sodium 135 mmol/L (136-145)
[2024-08-27 19:42] LABS: Anion Gap 10 (5-15); Carbon Dioxide 21 mmol/L (20-31)
[2024-08-27 19:43] LABS: Calcium 9.5 mg/dL (8.7-10.4)
[2024-08-27 19:47] LABS: BUN/Creatinine Ratio 21.7 (10.0-20.0); Blood Urea Nitrogen 30 mg/dL (9-23); Glucose 127 mg/dL (74-106)
[2024-08-27 19:51] LABS: Lactic Acid w/Reflex 2.5 mmol/L (0.4-2.0)
--- NOTE | 2024-08-27 20:41 | DVH ---
EXAM: XY CHEST PORTABLE TECHNIQUE: Single frontal chest radiograph CLINICAL HISTORY: syncope COMPARISON: XY CHEST PORTABLE on DOS: 07/10/24, XY CHEST PORTABLE on DOS: 07/05/24, XY CHEST XRAY 1 VIE W on DOS: 03/28/24 Findings/Impression: Frontal chest radiograph demonstrates no acute osseous or superficial soft tissue abnormalities. The trachea is midline. The cardiac silhouette and mediastinum are within normal limits. No pneumothorax, pleural effusions, or consolidations.
--- NOTE | 2024-08-27 20:44 | DVH ---
EXAM: CT HEAD WITHOUT CONTRAST HISTORY: syncope COMPARISON: CT HEAD WITHOUT CONTRAST on DOS: 07/05/24, CT HEAD WITHOUT CONTRAST on DOS: 04/06/24 TECHNIQUE: Axial images were obtained and reformatted in coronal and sagittal planes. All CT scans at this medical facility are performed using dose modulation techniques as appropriate t o a performed exam including the following: Automated exposure control was utilized; adjustment of th e MA and/or KV according to patient size; and use of iterative reconstruction technique. CT Dose: CTDI volume is 49.97 mGy. Dose-length product is 801.31 mGy*cm FINDINGS: Supratentorial Region: No evidence for large acute territorial ischemia. No intracranial hemorrhage is noted. Confluent white matter hypoattenuating foci are noted bilaterally, which typically reflect chronic microvascular ischemic changes. Posterior Fossa: No acute abnormality. Brainstem: Unremarkable. Sellar/Suprasellar Region: Unremarkable. Ventricles, Cisterns, Sulci: Age-appropriate. Orbits: Unremarkable. Paranasal Sinuses: Large amount of fluid in the left sphenoid sinus. Mastoid Air Cells: Unremarkable. Vasculature: Unremarkable. Bones/Soft Tissues: No acute abnormality. Other: None. IMPRESSION: 1. No acute intracranial process. 2. Large amount of fluid in the left sphenoid sinus reflecting acute on chronic sinusitis.
[2024-08-27] MEDS ORDERED: ACETAMINOPHEN 325 MG TAB PO PRN (21:45)
[2024-08-27] MEDS ORDERED: NITROGLYCERIN 0.4 MG SL TAB SL PRN (21:45)
[2024-08-27] MEDS ORDERED: MORPHINE SULFATE INJ 2 MG/ml SYRG IV PRN (21:45)
[2024-08-27] MEDS: ONDANSETRON HCL 4 MG/2 ML VIAL IV ONE ×2 (21:47→21:49)
[2024-08-27] MEDS: CARBIDOPA W LEVODOPA 25/250mg TABLET PO SCH (22:00)
[2024-08-27 22:07] VITALS: O2SAT 96
[2024-08-27 22:10] VITALS: BP 113/56; PULSE 87; RESP 16; TEMP 99.2; O2SAT 96
[2024-08-28] VITALS (13 sets, daily range): BP systolic 74–125; BP diastolic 46–62; PULSE 78–89; RESP 19–24; TEMP 97.5–98.4; O2SAT 93–98
[2024-08-28] MEDS: SODIUM CHLORIDE 0.9% 1,000 ML IV ONE (01:10)
[2024-08-28] MEDS: ALBUMIN 5% 250 ML IV ONE (03:44)
[2024-08-28 05:21] LABS: Chloride 108 mmol/L (98-107); Potassium 3.9 mmol/L (3.5-5.1); Sodium 139 mmol/L (136-145)
[2024-08-28 05:22] LABS: Anion Gap 10 (5-15); Carbon Dioxide 21 mmol/L (20-31)
[2024-08-28 05:23] LABS: Calcium 8.6 mg/dL (8.7-10.4)
[2024-08-28 05:27] LABS: BUN/Creatinine Ratio 24.6 (10.0-20.0); Glucose 122 mg/dL (74-106)
--- NOTE | 2024-08-28 05:30 | DVH ---
Exam: CT CT AB PEL WO CON-NO ORAL OR IV History: abd pain Comparison Study: None available at time of dictation. TECHNIQUE: Multidetector CT of the abdomen and pelvis was performed from lung bases to ischial tubero sities. Imaging was performed without IV contrast using axial images. Coronal and sagittal reformats were obtained from the axial data set by the technologist. Radiation Dose Information: CT Dose: CTDI volume is [CTDIvol] mGy. Dose-length product is 510.44 mGy*cm FINDINGS: Evaluation of solid organs is limited due to lack of intravenous contrast use. Findings: Lung Bases: Bilateral lower lobe airspace disease. Normal heart size. No pleural or pericardial effu mich. Liver: The liver is normal in size. No focal lesions. Gallbladder and Biliary Tree: Cholecystectomy. Dilated common bile duct measuring 1.5 cm. Spleen: Unremarkable Pancreas: The pancreas is grossly normal in appearance. Adrenal Glands: Unremarkable Kidneys: Multiple left renal cysts, the largest measuring 8.4 cm in the lower pole of the right kidne y. Multiple right renal cysts, the largest measuring 2.1 cm GI Tract: Fluid distention of the stomach. Fluid-filled small bowel loops. There is abnormal thicken ing of the majority of the colon. Marked distension of the cecum and the ascending colon. The append ix is not visualized; however, no secondary findings of acute appendicitis identified. Peritoneal cavity: No pneumoperitoneum. Mild ascites. Lymphadenopathy: No mesenteric, retroperitoneal or periportal lymphadenopathy. Abdominal Wall and Mesentery: Unremarkable. Vasculature: The visualized abdominal aorta is normal in size and caliber. Evaluation of abdominal a nd pelvic vessels is limited due to lack of intravenous contrast. Pelvic Organs: Unremarkable Urinary Bladder: Grossly unremarkable for degree of distention. Musculoskeletal: No aggressive focal bony lesions, acute fractures or dislocation. Posterior fusion a t L3-L5. Severe compression deformities of the L1 and L4 vertebral bodies with vertebral plana. Mult ilevel lumbar spondylosis. Soft tissues: Unremarkable IMPRESSION: 1. Findings compatible with pancolitis. 2. Fluid-filled small bowel loops and distention of the stomach. Findings may reflect enteritis in th e appropriate clinical setting. Radiation optimization: All CT scans at this facility use at least one of these dose optimization nadine hniques: automated exposure control mA and/or kV adjustment per patient size (includes targeted exam s where dose is matched to clinical indication) or iterative reconstruction.
[2024-08-28 05:31] LABS: Blood Urea Nitrogen 42 mg/dL (9-23)
[2024-08-28] MEDS ORDERED: VANCOMYCIN PER PHARMACY 0 MG IV SCH (05:45)
[2024-08-28] MEDS: metroNIDAZOLE 500MG/100ML 100 ML IV SCH (06:14)
[2024-08-28] MEDS: MIDODRINE HCL 10 MG TAB PO SCH (06:51)
--- NOTE | 2024-08-28 07:10 | DVHHP2 ---
History of Present Illness Reason for Visit: Syncope History of Present Illness 84-year-old female presents for evaluation of syncopal episode. Patient reports having a syncopal episode while using her restroom. Reports falling to the ground. No loss of consciousness. No head trauma. On the feel patient blood pressure was in the 60s. Patient also complaining of mid abdominal pain. Patient reported a three day history of constipation. While in the emergency department patient had multiple episodes of watery diarrhea. Denies fever or chills. No nausea or vomiting. No other acute complaints reported. Past Medical History Hypertension, Parkinson's disease, dyslipidemia and GERD Past Surgical History Hysterectomy, tonsillectomy and cholecystectomy Family History Diabetes mellitus, cancer and heart disease Smoke: No ALCOHOL: none Drugs: None Lives: with Family Review of Systems Review of Systems Review of systems are currently negative otherwise addressed in HPI. Allergies: Coded Allergies: Elemental Sulfur (Verified Allergy, Mild, Abdominal pain, 04/27/22) Hydromorphone (Verified Allergy, Mild, Itching, 03/29/24) Ciprofloxacin (Verified Allergy, Unknown, 04/27/22) SEVERE NAUSEA Morphine (Verified Allergy, Unknown, 07/05/24) Itching, and hallucinates Aspirin (Verified Adverse Reaction, Mild, 07/05/24) Doesnt take due to stomach issues Medications Current Medications Medications Dose Ordered Sig/Zonia Route Start Time Stop Time Status Last Admin Dose Admin Carbidopa/Levodopa 1 tab TID PO 08/27/24 22:00 Furosemide 20 mg DAILY PO 08/28/24 10:00 Albuterol 2.5 mg Q6HPRN PRN NEB 08/27/24 21:45 Enoxaparin Sodium 30 mg DAILY SC 08/28/24 10:00 Acetaminophen 650 mg Q6HP PRN PO 08/27/24 21:45 Nitroglycerin 0.4 mg Q5MINP PRN SL 08/27/24 21:45 Morphine Sulfate 2 mg Q30M PRN IV 08/27/24 21:45 Metronidazole 100 ml @ 100 mls/hr Q8HR IV 08/28/24 06:00 08/28/24 06:14 100 MLS/HR Vancomycin HCl 0 ml @ 0 mls/hr UD IV 08/28/24 05:45 UNV Midodrine 10 mg TID@0600,1200,1800 PO 08/28/24 06:45 08/28/24 06:51 10 MG Exam Vital Signs Vital Signs Date Time Temp Pulse Resp B/P (MAP) Pulse Ox O2 Delivery O2 Flow Rate FiO2 08/28/24 06:30 98.1 80 21 99/44 (62) 64 98.1 08/28/24 04:30 Nasal Cannula* 3 32 Exam Gen: 84-year-old female in mild distress Skin: Warm, dry, normal color and texture, no rash. HEENT: Normocephalic atraumatic, mucous membranes moist and pink. Neck: Cervical and supraclavicular nodes normal without enlargement, trachea is midline, thyroid gland is normal without masses. Pulmonary: Clear to auscultation and percussion bilaterally. Cardiac: Regular rate and rhythm. No murmur Abdomen: Soft, nontender, nondistended, bowel sounds present all 4 quadrants, no guarding, no rigidity, no organomegaly. Extremities: No cyanosis, clubbing, no edema Neuro: Cranial nerves II through XII grossly intact, normal affect and speech, no focal motor deficits. Labs/Xrays ORDERING PHYSICIAN: ABEL LEBLANC MD PROCEDURE(s): HWOCT - HEAD WITHOUT CONTRAST REASON: syncope ORDER NUMBER(s): [id number], ACCESSION NUMBER(s): [id number] EXAM: CT HEAD WITHOUT CONTRAST HISTORY: syncope COMPARISON: CT HEAD WITHOUT CONTRAST on DOS: 07/05/24, CT HEAD WITHOUT CONTRAST on DOS: 04/06/24 TECHNIQUE: Axial images were obtained and reformatted in coronal and sagittal planes. All CT scans at this medical facility are performed using dose modulation techniques as appropriate to a performed exam including the following: Automated exposure control was utilized; adjustment of the MA and/or KV according to patient size; and use of iterative reconstruction technique. CT Dose: CTDI volume is 49.97 mGy. Dose-length product is 801.31 mGy*cm FINDINGS: Supratentorial Region: No evidence for large acute territorial ischemia. No intracranial hemorrhage is noted. Confluent white matter hypoattenuating foci are noted bilaterally, which typically reflect chronic microvascular ischemic changes. Posterior Fossa: No acute abnormality. Brainstem: Unremarkable. Sellar/Suprasellar Region: Unremarkable. Ventricles, Cisterns, Sulci: Age-appropriate. Orbits: Unremarkable. Paranasal Sinuses: Large amount of fluid in the left sphenoid sinus. Mastoid Air Cells: Unremarkable. Vasculature: Unremarkable. Bones/Soft Tissues: No acute abnormality. Other: None. IMPRESSION: 1. No acute intracranial process. 2. Large amount of fluid in the left sphenoid sinus reflecting acute on chronic sinusitis. ATED BY: CELENA GONZALEZ MD DICTATED DATE/TIME: 08/27/242040 AGE / SEX: 84 / F ADM STATUS: ADM IN SERVICE 5 ORDERING PHYSICIAN: WILLY GUZMAN PROCEDURE(s): ABPL - CT AB PEL WO CON-NO ORAL OR IV REASON: abd pain ORDER NUMBER(s): [id number], ACCESSION NUMBER(s): [id number] Exam: CT CT AB PEL WO CON-NO ORAL OR IV History: abd pain Comparison Study: None available at time of dictation. TECHNIQUE: Multidetector CT of the abdomen and pelvis was performed from lung bases to ischial tuberosities. Imaging was performed without IV contrast using axial images. Coronal and sagittal reformats were obtained from the axial data set by the technologist. Radiation Dose Information: CT Dose: CTDI volume is [CTDIvol] mGy. Dose-length product is 510.44 mGy*cm FINDINGS: Evaluation of solid organs is limited due to lack of intravenous contrast use. Findings: Lung Bases: Bilateral lower lobe airspace disease. Normal heart size. No pleural or pericardial effusion. Liver: The liver is normal in size. No focal lesions. Gallbladder and Biliary Tree: Cholecystectomy. Dilated common bile duct measuring 1.5 cm. Spleen: Unremarkable Pancreas: The pancreas is grossly normal in appearance. Adrenal Glands: Unremarkable Kidneys: Multiple left renal cysts, the largest measuring 8.4 cm in the lower pole of the right kidney. Multiple right renal cysts, the largest measuring 2.1 cm GI Tract: Fluid distention of the stomach. Fluid-filled small bowel loops. There is abnormal thickening of the majority of the colon. Marked distension of the cecum and the ascending colon. The appendix is not visualized; however, no secondary findings of acute appendicitis identified. Peritoneal cavity: No pneumoperitoneum. Mild ascites. Lymphadenopathy: No mesenteric, retroperitoneal or periportal lymphadenopathy. Abdominal Wall and Mesentery: Unremarkable. Vasculature: The visualized abdominal aorta is normal in size and caliber. Evaluation of abdominal and pelvic vessels is limited due to lack of intravenous contrast. Pelvic Organs: Unremarkable Urinary Bladder: Grossly unremarkable for degree of distention. Musculoskeletal: No aggressive focal bony lesions, acute fractures or dislocation. Posterior fusion at L3-L5. Severe compression deformities of the L1 and L4 vertebral bodies with vertebral plana. Multilevel lumbar spondylosis. Soft tissues: Unremarkable IMPRESSION: 1. Findings compatible with pancolitis. 2. Fluid-filled small bowel loops and distention of the stomach. Findings may reflect enteritis in the appropriate clinical setting. Radiation optimization: All CT scans at this facility use at least one of these dose optimization techniques: automated exposure control mA and/or kV adjustment per patient size (includes targeted exams where dose is matched to clinical indication) or iterative reconstruction. ATED BY: RANDI FREEMAN MD DICTATED DATE/TIME: 08/28/24526 Labs Test 08/28/24 04:35 08/27/24 21:42 08/27/24 20:45 08/27/24 18:41 Range/Units Sodium Level 139 136-145 mmol/L Potassium Level 3.9 3.5-5.1 mmol/L Chloride Level 108 H 98-107 mmol/L Carbon Dioxide Level 21 20-31 mmol/L Anion Gap 10 5-15 Blood Urea Nitrogen 42 #H 9-23 mg/dL Creatinine 1.71 H 0.550-1.02 mg/dL Glomerular Filtration Rate Calc 29 >90 mL/min BUN/Creatinine Ratio 24.6 H 10.0-20.0 Serum Glucose 122 H 74-106 mg/dL Calcium Level 8.6 L 8.7-10.4 mg/dL Troponin I High Sensitivity 36 *H </=34 ng/L Lactic Acid Level 1.6 0.4-2.0 mmol/L White Blood Count 10.2 4.4-10.8 10^3/uL Red Blood Count 4.48 4.0-5.20 10^6/uL Hemoglobin 14.0 12.2-16.2 g/dL Hematocrit 41.8 36.0-46.0 % Mean Corpuscular Volume 93.3 80.0-100.0 fL Mean Corpuscular Hemoglobin 31.3 28.0-32.0 pg Mean Corpuscular Hemoglobin Concent 33.6 32.0-36.0 g/dL Red Cell Distribution Width 16.5 H 11.8-14.3 % Platelet Count 336 140-450 10^3/uL Mean Platelet Volume 7.5 6.9-10.8 fL Neutrophils (%) (Auto) 82.9 H 37.0-80.0 % Lymphocytes (%) (Auto) 13.0 10.0-50.0 % Monocytes (%) (Auto) 3.6 0.0-12.0 % Eosinophils (%) (Auto) 0.1 0.0-7.0 % Basophils (%) (Auto) 0.4 0.0-2.0 % Neutrophils # (Auto) 8.4 1.6-8.6 10 ^3/uL Lymphocytes # (Auto) 1.3 0.4-5.4 10 ^3/uL Monocytes # (Auto) 0.4 0-1.3 10 ^3/uL Eosinophils # (Auto) 0 0-0.8 10 ^3/uL Basophils # (Auto) 0 0-0.2 10 ^3/uL Nucleated Red Blood Cells 0.0 % B-Type Natriuretic Peptide 54.36 0-100 pg/mL Assessment/Plan Assessment/Plan Syncope Orthostatic hypotension Parkinson's disease Colitis ? Early sepsis Chronic kidney disease Plan Admitted the patient to telemetry to the hospitalist Cardiology consultation Echocardiogram pending Resume home medications Start midodrine Flagyl/vancomycin Continue treatment per orders. Plan discussed with: Daughter My Orders Orders - WILLY GUZMAN AGACN Procedure Category Date Status Time * Cardiology Consult CONS 08/27/24 Transmitted 21:42 Orthostatic Vital ORDERS 08/27/24 Transmitted Signs 21:42 Carbidopa W Levodopa PHA 08/27/24 In Process 25/250mg (Sinemet 2 22:00 Furosemide Tablet PHA 08/28/24 In Process (Lasix Tablet) 10:00 Albuterol Medneb PHA 08/27/24 In Process (Ventolin Medneb) 21:45 Admit ADMIT 08/27/24 Transmitted 21:42 Cardiac DIET 08/28/24 Transmitted Diet-2gna,Lofat,Lochol Breakfast Condition: Fair RADHA 08/27/24 In Process 21:42 Enoxaparin Sodium PHA 08/28/24 In Process (Lovenox) 10:00 Acetaminophen Tablet PHA 08/27/24 In Process (Tylenol Tablet) 21:45 Bedrest With Bathroom [facility] 08/27/24 In Process Privileg 21:42 Nitroglycerin PHA 08/27/24 In Process Sublingual (Ntrostat 21:45 Morphine Sulfate PHA 08/27/24 In Process Injection 21:45 Stat Ekg For Chest [facility] 08/27/24 In Process Pain 21:42 Notify Md Of Changes [facility] 08/27/24 In Process From Base 21:42 Early Childhood Specialist For [facility] 08/27/24 In Process 24 Hours 21:42 Emergency Dysrhythmia [facility] 08/27/24 In Process Protocol 21:42 Rhythm Strips Once [facility] 08/27/24 In Process Every Shift 21:42 Oxygen By Nasal RT 08/27/24 Transmitted Cannula 21:42 Stool Bacterial MARY 08/28/24 Uncollected Culture 03:16 Clostridium Difficile MARY 08/28/24 Uncollected Toxin 03:16 Metronidazole PHA 08/28/24 In Process 500mg/100ml (Flagyl 06:00 Ct Ab Pel Wo Con-No CT 08/28/24 Resulted Oral Or Iv 03:16 Vancomycin Per PHA 08/28/24 Pending Pharmacy 05:45 Midodrine Tablet PHA 08/28/24 In Process (Proamatine Tablet) 06:45 Date of Service: Aug 27, 2024 Billing Provider: WILLY GUZMAN Common Visit Codes: [id number] INP/OBS CARE (HIGH) WILLY GUZMAN Aug 28, 2024 07:10
[2024-08-28] MEDS: VANCOMYCIN 750mg/150ml 150 ML IV ONE (08:53)
[2024-08-28] MEDS: FUROSEMIDE 20 MG TAB PO SCH (10:00)
[2024-08-28] MEDS: ENOXAPARIN SOD 30 MG/0.3 ML SYRINGE SC SCH (10:21)
[2024-08-28] MEDS: SODIUM CHLORIDE 0.9% 1,000 ML IV SCH (10:45)
[2024-08-28 11:01] LABS: Basophils # (auto) 0 10 ^3/uL (0-0.2); Basophils % (auto) 0.1 % (0.0-2.0); Eosinophils # (auto) 0 10 ^3/uL (0-0.8); Hematocrit 42.3 % (36.0-46.0); Hemoglobin 13.8 g/dL (12.2-16.2); Lymphocytes # (auto) 0.5 10 ^3/uL (0.4-5.4); Lymphocytes % (auto) 8.8 % (10.0-50.0); Mean Corpuscular Hemoglobin 30.9 pg (28.0-32.0); Mean Corpuscular Hgb Conc. 32.6 g/dL (32.0-36.0); Mean Corpuscular Volume 94.6 fL (80.0-100.0); Monocytes # (auto) 0.4 10 ^3/uL (0-1.3); Monocytes % (auto) 6.7 % (0.0-12.0); Neutrophils # (auto) 5.3 10 ^3/uL (1.6-8.6); Neutrophils % (auto) 84.4 % (37.0-80.0); Platelet Count (auto) 327 10^3/uL (140-450); Red Blood Cells 4.47 10^6/uL (4.0-5.20); Red Cell Distribution Width 16.4 % (11.8-14.3); White Blood Cell 6.3 10^3/uL (4.4-10.8)
[2024-08-28 11:11] LABS: Albumin 3.6 g/dL (3.2-4.8); Bilirubin, Direct 0.3 mg/dL (<0.3); Phosphorus 4.8 mg/dL (2.4-5.1)
[2024-08-28 11:12] LABS: Bilirubin, Total 0.7 mg/dL (0.2-1.0); Total Protein 5.8 g/dL (5.7-8.2)
[2024-08-28 11:19] LABS: Magnesium 4.7 mg/dL (1.6-2.6)
[2024-08-28 11:45] LABS: INR 1.07 (0.9-1.15); Partial Thromboplastin Time 32.9 SEC (24.5-34.5); Prothrombin Time 11.3 sec (9.3-11.8)
--- NOTE | 2024-08-28 11:45 | DVHINCON2 ---
Date Seen: Aug 28, 2024 Referring Physician Edgar Benavidez NP Reason for Consultation Syncope History of Present Illness Tonia Bonner is a 84-year-old female patient who presents to the ED brought by son-in-law with chief complaint of loss of consciousness with head trauma with ad integrum recuperation which lasted 5 minutes, patient reports presenting prodromes (dizziness, nausea, visual alteration, generalized numbness and palmar erythema) which occur while trying to defecate. Son-in-law later on the bed measure her blood pressure which was 63/39 mmHg and saw that she was cold and clammy, prompting her visit to the ED. patient reports constipation three days before her admission, but presented multiple episodes of diarrhea while in the emergency department. Patient also reports recent travel to [place] (July). Denies palpitation, chest pain, dyspnea, vomiting, abdominal pain, bleeding, sick contacts and motor or sensory deficits. 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 Completed echocardiogram on 03/2024 (LVEF 60%, grade 1 diastolic dysfunction, RVSP 20 mmHg) Surgical history: Spinal surgery (fusion), hysterectomy Family history: Mother and sister has diabetes Social history: Lives in [place] with daughter and son-in-law. Denies current tobacco, alcohol and other drug abuse. Allergies: Morphine (per patient presents nausea) Home medication: Protonix, Flexeril, Tylenol, albuterol, alprazolam, amlodipine 5 mg p.o. daily, azithromycin, carbidopa levodopa one tablet p.o. b.i.d., cefdinir, cyclobenzaprine, docusate, furosemide 20 mg p.o. daily, lisinopril 40 mg p.o. daily, omeprazole 40 mg p.o. daily, potassium chloride Patient seen and examined at bedside. Currently patient still feels dizziness while standing up. Completed orthostatic vital signs which were positive (laying flat 93/59 mmHg 80 beats per minute, sitting 102/56 mmHg 80 beats per minute, standing 74/46 mmHg 83 beats per minute Past Medical History Per HPI Past Surgical History Per HPI Family History: Cancer G8 MOTHER, Onset:60 years & older Family history: Cardiovascular disease G8 FATHER, Onset:40's - 50 Family history: Hypertension G8 BROTHER G8 BROTHER Family History Per HPI Social History Per HPI Allergies: Coded Allergies: Elemental Sulfur (Verified Allergy, Mild, Abdominal pain, 04/27/22) Hydromorphone (Verified Allergy, Mild, Itching, 03/29/24) Ciprofloxacin (Verified Allergy, Unknown, 04/27/22) SEVERE NAUSEA Morphine (Verified Allergy, Unknown, 07/05/24) Itching, and hallucinates Aspirin (Verified Adverse Reaction, Mild, 07/05/24) Doesnt take due to stomach issues Home Meds Active Scripts Potassium Chloride (Potassium Chloride ER) 20 Meq Tab, 20 MEQ PO QAM for 5 Days, #5 TAB Prov:ALO SULLIVAN MD 07/11/24 Furosemide (Lasix) 20 Mg Tb, 1 TAB PO QAM for 5 Days, #5 TAB 0 Refills Prov:ALO SULLIVAN MD 07/11/24 Cefdinir (Cefdinir) 300 Mg Cap, 1 CAP PO BID, #14 CAP Prov:ALO SULLIVAN MD 07/11/24 Albuterol Sulfate (VENTOLIN MDI) 90 Mcg Ih, 90 MCG IN TIDHS for 30 Days, #30 INH Prov:ALO SULLIVAN MD 07/11/24 Azithromycin (Azithromycin) 250 Mg Tab, 250 MG PO DAILY for 2 Days, #2 TAB Prov:ALO SULLIVAN MD 07/11/24 Docusate Sodium (Docusate Sodium) 100 Mg Cap, 100 MG PO BIDPRN PRN for 10 Days, #20 CAP Prov:CODY SIN NP 04/09/24 Cyclobenzaprine HCl (Cyclobenzaprine Hydrochlo) 10 Mg Tab, 10 MG PO TID for 30 Days, #90 TAB Prov:CODY SIN CATHEAD WORKER 04/09/24 Amlodipine Besylate (NORVASC TABLET) 5 Mg Tb, 5 MG PO DAILY, #30 Prov:ANTONINO CANDELARIA MD 07/19/17 Reported Medications Amlodipine Besylate (Amlodipine Besylate) 5 Mg Tab, 1 TAB PO DAILY 07/05/24 Docusate Sodium (Colace) 100 Mg Cap, 100 MG PO, CAP 03/28/24 Acetaminophen (Acetaminophen Er) 650 Mg Tab, 650 MG PO, TAB 03/28/24 Lisinopril (Lisinopril) 40 Mg Tab, 40 MG PO DAILY for 30 Days, MG 09/16/19 Alprazolam (Xanax) 0.25 Mg Tb, 1 TAB PO BID PRN for ANXIETY, #30 TAB 01/18/18 Carbidopa-Levodopa (Carbidopa/Levodopa Odt 25-250 mg) 1 Tab Tab, 1 TAB PO BID, TAB 01/18/18 Omeprazole (PRILOSEC) 20 Mg Cap, 40 MG OR DAILY, CAP 03/03/17 Current Medications Current Medications Medications (Trade) Dose Ordered Sig/Zonia Route PRN Reason Start Time Stop Time Status Last Admin Carbidopa/Levodopa (Sinemet 25/ 250MG) 1 tab TID PO 08/27/24 22:00 Furosemide (Lasix Tablet) 20 mg DAILY PO 08/28/24 10:00 Albuterol (Ventolin Medneb) 2.5 mg Q6HPRN PRN NEB SHORTNESS OF BREATH 08/27/24 21:45 Enoxaparin Sodium (Lovenox) 30 mg DAILY SC 08/28/24 10:00 08/28/24 10:21 Acetaminophen (Tylenol Tablet) 650 mg Q6HP PRN PO PAIN SCALE 1-3 OR TEMP>100.4 08/27/24 21:45 Nitroglycerin (Ntrostat Sublingual) 0.4 mg Q5MINP PRN SL FOR CHEST PAIN 08/27/24 21:45 Morphine Sulfate 2 mg Q30M PRN IV FOR CHEST PAIN 08/27/24 21:45 Metronidazole 100 ml @ 100 mls/hr Q8HR IV 08/28/24 06:00 08/28/24 06:14 Vancomycin HCl 0 ml @ 0 mls/hr UD IV 08/28/24 05:45 08/28/24 10:45 DC Midodrine (Proamatine Tablet) 10 mg TID@0600,1200,1800 PO 08/28/24 06:45 08/28/24 10:45 DC 08/28/24 06:51 Sodium Chloride 1,000 ml @ 125 mls/hr Q8H IV 08/28/24 10:45 08/29/24 02:44 Review of Systems Per HPI Vital Signs Vital Signs Date Time Temp Pulse Resp B/P (MAP) Pulse Ox O2 Delivery O2 Flow Rate FiO2 11/6/24 10:47 97.5 80 20 102/62 (75) 94 97.5 08/28/24 08:00 Room Air* 0 21 Physical Exam Patient lying in bed, in no acute distress. Positive orthostatics vital signs. General: Lucid, afebrile, mucosae are moist Cardiovascular: Normal S1 and S2. No murmurs, gallops or rubs Respiratory: Normal ventilation mechanics. Clear lung sounds on auscultation Abdomen: Soft, nontender, no organomegaly, normal bowel sounds MSK/skin: Mobilizes 4 limbs. Skin is dry and warm Neurological: Oriented in 3 spheres. No motor no sensitive deficits. Pupils are isocoric and reactive Labs/Diagnostic Data Labs Test 08/28/24 11:00 08/28/24 04:35 08/27/24 21:42 08/27/24 20:45 Range/Units White Blood Count 6.3 # 4.4-10.8 10^3/uL Red Blood Count 4.47 4.0-5.20 10^6/uL Hemoglobin 13.8 12.2-16.2 g/dL Hematocrit 42.3 36.0-46.0 % Mean Corpuscular Volume 94.6 80.0-100.0 fL Mean Corpuscular Hemoglobin 30.9 28.0-32.0 pg Mean Corpuscular Hemoglobin Concent 32.6 32.0-36.0 g/dL Red Cell Distribution Width 16.4 H 11.8-14.3 % Platelet Count 327 140-450 10^3/uL Mean Platelet Volume 8.3 6.9-10.8 fL Neutrophils (%) (Auto) 84.4 H 37.0-80.0 % Lymphocytes (%) (Auto) 8.8 L 10.0-50.0 % Monocytes (%) (Auto) 6.7 0.0-12.0 % Eosinophils (%) (Auto) 0.0 0.0-7.0 % Basophils (%) (Auto) 0.1 0.0-2.0 % Neutrophils # (Auto) 5.3 1.6-8.6 10 ^3/uL Lymphocytes # (Auto) 0.5 0.4-5.4 10 ^3/uL Monocytes # (Auto) 0.4 0-1.3 10 ^3/uL Eosinophils # (Auto) 0 0-0.8 10 ^3/uL Basophils # (Auto) 0 0-0.2 10 ^3/uL Nucleated Red Blood Cells 0.0 % Sodium Level 139 136-145 mmol/L Potassium Level 3.9 3.5-5.1 mmol/L Chloride Level 108 H 98-107 mmol/L Carbon Dioxide Level 21 20-31 mmol/L Anion Gap 10 5-15 Blood Urea Nitrogen 42 #H 9-23 mg/dL Creatinine 1.71 H 0.550-1.02 mg/dL Glomerular Filtration Rate Calc 29 >90 mL/min BUN/Creatinine Ratio 24.6 H 10.0-20.0 Serum Glucose 122 H 74-106 mg/dL Hemoglobin A1c 5.8 H <5.7 % A1C Calcium Level 8.6 L 8.7-10.4 mg/dL Phosphorus Level 4.8 2.4-5.1 mg/dL Magnesium Level 4.7 *H 1.6-2.6 mg/dL Total Bilirubin 0.7 0.2-1.0 mg/dL Direct Bilirubin 0.3 <0.3 mg/dL Aspartate Amino Transferase (AST) 29 13-40 U/L Alanine Aminotransferase (ALT) 14 7-40 U/L Alkaline Phosphatase 329 H 46-116 U/L Total Protein 5.8 5.7-8.2 g/dL Albumin 3.6 3.2-4.8 g/dL Vitamin B12 Level 175 L 211-911 pg/mL Vitamin D 25-Hydroxy 56.7 30.0-100 ng/mL Thyroid Stimulating Hormone (TSH) 1.70 0.55-4.78 uIU/mL Troponin I High Sensitivity 36 *H </=34 ng/L Lactic Acid Level 1.6 0.4-2.0 mmol/L Assessment Orthostatic syncope Pancolitis NSTEMI probable type 2 ANJELICA hemodynamically mediated Hypermagnesemia 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 Echocardiogram from 03/2024 shows LVEF 60%, grade 1 diastolic dysfunction, RVSP 21 mmHg. Patient's orthostatic vital signs were positive. Indicate IV fluids at this time. Recommend treatment of underlying cause of dehydration (pancolitis). IV antibiotics per hospitalist Mildly elevated troponin secondary to hypovolemia. Recommend patient to stay in bed until orthostatism improves Discontinued antihypertensive medication and diuretics Discussed plan with Dr. Marquze, patient, son-in-law and nurses: Patient presents orthostatic syncope, which probably secondary to pancolitis symptomatic by profuse diarrhea. Recommend at this time IV fluids and IV antibiotics. No further cardiological workup needed during this admission. Cardiology will sign off. Please reconsult if needed, thank you. Plan discussed with: Patient, Other (Son in law and nurses) Date of Service: Aug 28, 2024 Billing Provider: GABRIELLA MARQUEZ MD Cardiology Common Codes: [id number] INP/OBS CARE (High), [id number] CARE 30-74 MIN ERON MANUEL RESIDENT Aug 28, 2024 11:45
[2024-08-28] MEDS: PANTOPRAZOLE 40 MG/10 ML VIAL INJ IV ONE (11:59)
[2024-08-28 13:26] LABS: Erythrocyte Sedimentation Rate 9 mm/hr (0-20)
--- NOTE | 2024-08-28 16:13 | DVHPN2 ---
Subjective Continues to report having right and left lower quadrant abdominal pain. Reviewed: Care Plan, H&P, Medications Changes from previous H/P or p: No Changes General: Per HPI Objective Vitals Vital Signs Date Time Temp Pulse Resp B/P (MAP) Pulse Ox O2 Delivery O2 Flow Rate FiO2 08/28/24 12:52 98.4 80 20 102/62 (75) 94 98.4 08/28/24 10:44 Nasal Cannula* 1 24 Intake/Output Intake and Output 08/28/24 07:00 Intake Total 1250 ml Balance 1250 ml Intake IV Total 1250 ml General Appearance: Alert, Oriented X3, Cooperative, No acute distress HEENT: Atraumatic, PERRLA Lungs: Clear to auscultation, Normal air movement Cardiovascular: Normal S1, Normal S2 Abdomen: Normal bowel sounds, Soft Musculoskeletal: Normal sensory function, Normal motor function Neuro: Normal gait, Normal speech Psych/Mental Status: Mental status NL, Mood NL Medications Current Medications Medications Dose Ordered Sig/Zonia Route Start Time Stop Time Status Last Admin Dose Admin Carbidopa/Levodopa 1 tab TID PO 08/27/24 22:00 Albuterol 2.5 mg Q6HPRN PRN NEB 08/27/24 21:45 Enoxaparin Sodium 30 mg DAILY SC 08/28/24 10:00 08/28/24 10:21 30 MG Acetaminophen 650 mg Q6HP PRN PO 08/27/24 21:45 Nitroglycerin 0.4 mg Q5MINP PRN SL 08/27/24 21:45 Morphine Sulfate 2 mg Q30M PRN IV 08/27/24 21:45 Metronidazole 100 ml @ 100 mls/hr Q8HR IV 08/28/24 06:00 08/28/24 13:34 100 MLS/HR Sodium Chloride 1,000 ml @ 125 mls/hr Q8H IV 08/28/24 10:45 08/29/24 02:44 08/28/24 10:45 125 MLS/HR Pantoprazole Sodium 40 mg DAILY IV 08/29/24 10:00 Nystatin 1 applic BID TOP 08/28/24 22:00 Laboratory Results Laboratory Tests 08/28/24 04:35 Chemistry Test 08/27/24 18:41 08/28/24 04:35 Calcium Level 9.5 mg/dL (8.7-10.4) 8.6 mg/dL (8.7-10.4) L Albumin 3.6 g/dL (3.2-4.8) Magnesium Level 4.7 mg/dL (1.6-2.6) *H Phosphorus Level 4.8 mg/dL (2.4-5.1) Total Protein 5.8 g/dL (5.7-8.2) Coagulation Test 08/28/24 11:00 Prothrombin Time 11.3 sec (9.3-11.8) Prothrombin Time INR 1.07 (0.9-1.15) Activated Partial Thromboplast Time 32.9 SEC (24.5-34.5) Cardiac Markers Test 08/27/24 18:41 08/28/24 04:35 B-Type Natriuretic Peptide 54.36 pg/mL (0-100) 107.27 pg/mL (0-100) LFT Test 08/28/24 04:35 Alanine Aminotransferase (ALT) 14 U/L (7-40) Alkaline Phosphatase 329 U/L (46-116) H Aspartate Amino Transferase (AST) 29 U/L (13-40) Direct Bilirubin 0.3 mg/dL (<0.3) Total Bilirubin 0.7 mg/dL (0.2-1.0) HgA1c, TSH Test 08/28/24 04:35 Hemoglobin A1c 5.8 % A1C (<5.7) H Thyroid Stimulating Hormone (TSH) 1.70 uIU/mL (0.55-4.78) Labs and/or images reviewed: Labs reviewed by me, Image(s) reviewed by me Assessment/Plan Assessment/Plan Impression: -wells colitis -enteritis -history of UTIs -recent lumbar spinal surgery -lumbar compression fractures -primary hypertension -GERD -dyslipidemia -Parkinson's disease -syncope Plan: -antibiotic therapy with p.o. vancomycin, clindamycin, Florastor -UA/UC -start IV hydration given hypotension -repeat magnesium level this p.m.. According to patient's daughter, patient was taking p.o. supplementation of magnesium at home -PPI -DVT prophylaxis -repeat labs in a.m. Total time spent with patient discussing and formulating plan of care: 35 minutes. This medical document was created using an electronic medical record system with [employer] system. Although this document has been carefully reviewed, there may still be some phonetic and typographical errors. These areas are purely typographical due to imperfections of the software programs, and do not reflect any compromise in the patient's medical care. Plan discussed with: Patient, Other (RN) My Orders Orders - SHAQUILLE HERNANDEZ NP Procedure Category Date Status Time Sodium Chloride 0.9% PHA 08/28/24 In Process 10:45 Cleanse Wound With RADHA 08/28/24 In Process Mild Soap A 15:30 Nystatin Powder PHA 08/28/24 In Process (Mycostatin Powder) 22:00 Florastor (S. PHA 08/29/24 Transmitted Boulardii) (Florastor) 10:00 Vancomycin Po PHA 08/28/24 Verified 18:00 Morphine Sulfate PHA 08/28/24 Transmitted Injection 16:15 Hydrocodone-Acet PHA 08/28/24 Transmitted 5/325mg Tab ([place] 16:15 Acetaminophen Tablet PHA 08/28/24 Transmitted (Tylenol Tablet) 16:15 Ondansetron Hcl PHA 08/28/24 Transmitted (Zofran) 16:15 Orthostatic Vital ORDERS 08/28/24 Transmitted Signs 16:07 Date of Service: Aug 28, 2024 Billing Provider: SHAQUILLE HERNANDEZ NP Common Visit Codes: [id number] INP/OBS CARE(HIGH) SHAQUILLE HERNANDEZ NP Aug 28, 2024 16:13
[2024-08-28] MEDS ORDERED: ONDANSETRON HCL 4 MG/2 ML VIAL IV PRN (16:15)
[2024-08-28] MEDS ORDERED: HYDROcodone-ACET 5/325MG TAB PO PRN (16:15)
[2024-08-28] MEDS ORDERED: MORPHINE SULFATE INJ 2 MG/ml SYRG IV PRN (16:15)
[2024-08-28] MEDS: VANCOMYCIN HCL 125 MG CAP PO SCH (18:00)
[2024-08-28 19:01] LABS: Urine Bacteria FEW /hpf (None Seen); Urine Blood 1+ /uL (Negative); Urine Clarity Turbid (Clear); Urine Color Yellow (Yellow); Urine Protein, UAD 1+ (Negative); Urine Specific Gravity 1.019 (1.001-1.035); Urine Urobilinogen 2 mg/dL (Negative); Urine WBC 11 /hpf (0 - 5)
[2024-08-28 19:16] LABS: Amphetamine Screen, Urine Neg (NEGATIVE); Barbiturate Scree,Urine Neg (NEGATIVE); Benzodiazephine Screen, Urine Neg (NEGATIVE); Cannabinoid Screen, Urine Neg (NEGATIVE); Cocaine Screen, Urine Neg (NEGATIVE); Opiate Scree,Urine Neg (NEGATIVE); Phencyclidine Screen, Urine Neg (NEGATIVE)
[2024-08-28 19:37] LABS: Potassium 4.5 mmol/L (3.5-5.1)
[2024-08-28 19:45] LABS: Magnesium 3.6 mg/dL (1.6-2.6)
[2024-08-28] MEDS: NYSTATIN TOPICAL POWDER 15GM TOP SCH (22:15)
[2024-08-29] VITALS (19 sets, daily range): BP systolic 98–144; BP diastolic 55–89; PULSE 60–101; RESP 16–28; TEMP 97.3–98.5; O2SAT 90–96
--- NOTE | 2024-08-29 08:34 | DVHPN2 ---
Subjective Continues to report having right and left lower quadrant abdominal pain. Reviewed: Care Plan, H&P, Medications Changes from previous H/P or p: No Changes General: Per HPI Objective Vitals Vital Signs Date Time Temp Pulse Resp B/P (MAP) Pulse Ox O2 Delivery O2 Flow Rate FiO2 08/29/24 08:16 Nasal Cannula* 1 08/29/24 07:19 93 08/29/24 04:44 98.5 67 18 117/59 (78) 98.5 Intake/Output Intake and Output 08/29/24 07:00 Intake Total 1150 ml Balance 1150 ml Intake Oral 750 ml IV Total 400 ml # Voids 7 # Bowel Movements 4 General Appearance: Alert, Oriented X3, Cooperative, No acute distress HEENT: Atraumatic, PERRLA Lungs: Clear to auscultation, Normal air movement Cardiovascular: Normal S1, Normal S2 Abdomen: Normal bowel sounds, Soft Musculoskeletal: Normal sensory function, Normal motor function Neuro: Normal gait, Normal speech Psych/Mental Status: Mental status NL, Mood NL Medications Current Medications Medications Dose Ordered Sig/Zonia Route Start Time Stop Time Status Last Admin Dose Admin Carbidopa/Levodopa 1 tab TID PO 08/27/24 22:00 08/29/24 05:11 1 TAB Albuterol 2.5 mg Q6HPRN PRN NEB 08/27/24 21:45 Enoxaparin Sodium 30 mg DAILY SC 08/28/24 10:00 08/28/24 10:21 30 MG Nitroglycerin 0.4 mg Q5MINP PRN SL 08/27/24 21:45 Morphine Sulfate 2 mg Q30M PRN IV 08/27/24 21:45 Metronidazole 100 ml @ 100 mls/hr Q8HR IV 08/28/24 06:00 08/29/24 05:08 100 MLS/HR Pantoprazole Sodium 40 mg DAILY IV 08/29/24 10:00 Nystatin 1 applic BID TOP 08/28/24 22:00 08/28/24 22:15 1 APPLIC Saccharomyces Boulardii 250 mg DAILY PO 08/29/24 10:00 Vancomycin HCl 125 mg QID PO 08/28/24 18:00 08/29/24 05:10 125 MG Morphine Sulfate 1 mg Q4HPRN PRN IV 08/28/24 16:15 Acetaminophen/ Hydrocodone Bitart 1 tab Q6HPRN PRN PO 08/28/24 16:15 Acetaminophen 500 mg Q8HP PRN PO 08/28/24 16:15 Ondansetron HCl 4 mg Q6HP PRN IV 08/28/24 16:15 Laboratory Results Laboratory Tests 08/28/24 04:35 08/28/24 19:03 Chemistry Test 08/28/24 19:03 Magnesium Level 3.6 mg/dL (1.6-2.6) #H Coagulation Test 08/28/24 11:00 Prothrombin Time 11.3 sec (9.3-11.8) Prothrombin Time INR 1.07 (0.9-1.15) Activated Partial Thromboplast Time 32.9 SEC (24.5-34.5) Urinalysis Test 08/28/24 18:48 Urine Color Yellow (Yellow) Urine Clarity Turbid (Clear) H Urine pH 5.0 (5.0-9.0) Urine Specific [place] 1.019 (1.001-1.035) Urine Protein 1+ (Negative) H Urine Ketones Negative (Negative) Urine Blood 1+ /uL (Negative) H Urine Nitrite Negative (Negative) Urine Bilirubin Negative (Negative) Urine Urobilinogen 2 mg/dL (Negative) H Urine Leukocyte Esterase 3+ /uL (Negative) Urine RBC 6 /hpf (0 - 4) Urine WBC 11 /hpf (0 - 5) Urine Squamous Epithelial Cells Few /hpf (<5) Urine Bacteria Few /hpf (None Seen) H Urine Glucose Normal mg/dL (Normal) Labs and/or images reviewed: Labs reviewed by me, Image(s) reviewed by me Assessment/Plan Assessment/Plan Impression: -wells colitis -enteritis -history of UTIs -recent lumbar spinal surgery -lumbar compression fractures -primary hypertension -GERD -dyslipidemia -Parkinson's disease -syncope Plan: Events: Improved mental status with IV hydration. Orthostatic blood pressures are pending. Stool specimen is also pending. Plan of care discussed with patient's daughter. -antibiotic therapy with p.o. vancomycin, clindamycin, Florastor -UA/UC -point current normal saline order. -repeat magnesium level this p.m.. According to patient's daughter, patient was taking p.o. supplementation of magnesium at home -PPI -DVT prophylaxis -repeat labs in a.m. Total time spent with patient discussing and formulating plan of care: 35 minutes. This medical document was created using an electronic medical record system with [email or web address] dictation system. Although this document has been carefully reviewed, there may still be some phonetic and typographical errors. These areas are purely typographical due to imperfections of the software programs, and do not reflect any compromise in the patient's medical care. Plan discussed with: Patient, Other (RN) My Orders Orders - SHAQUILLE HERNANDEZ NP Procedure Category Date Status Time Cleanse Wound With RADHA 08/28/24 In Process Mild Soap A 15:30 Nystatin Powder PHA 08/28/24 In Process (Mycostatin Powder) 22:00 Florastor (S. PHA 08/29/24 In Process Boulardii) (Florastor) 10:00 Vancomycin Po PHA 08/28/24 In Process 18:00 Morphine Sulfate PHA 08/28/24 In Process Injection 16:15 Hydrocodone-Acet PHA 08/28/24 In Process 5/325mg Tab ([place] 16:15 Acetaminophen Tablet PHA 08/28/24 In Process (Tylenol Tablet) 16:15 Ondansetron Hcl PHA 08/28/24 In Process (Zofran) 16:15 Orthostatic Vital ORDERS 08/28/24 Transmitted Signs 16:07 Date of Service: Aug 29, 2024 Billing Provider: SHAQUILLE HERNANDEZ NP Common Visit Codes: [id number] INP/OBS CARE(HIGH) SHAQUILLE HERNANDEZ NP Aug 29, 2024 08:34
[2024-08-29 09:05] LABS: Hepatitis B Surface Antigen Negative (Negative)
[2024-08-29 09:26] LABS: Hepatitis C Antibody Negative (Negative)
[2024-08-29] MEDS: FLORASTOR (S. BOULARDII) 250 MG CAP PO SCH (09:31)
[2024-08-29] MEDS: PANTOPRAZOLE 40 MG/10 ML VIAL INJ IV SCH (09:32)
[2024-08-29 10:12] LABS: Chloride 106 mmol/L (98-107); Potassium 3.9 mmol/L (3.5-5.1)
[2024-08-29 10:13] LABS: Anion Gap 6 (5-15); Carbon Dioxide 21 mmol/L (20-31)
[2024-08-29 10:14] LABS: Calcium 7.9 mg/dL (8.7-10.4)
[2024-08-29 10:18] LABS: BUN/Creatinine Ratio 41.1 (10.0-20.0); Blood Urea Nitrogen 46 mg/dL (9-23); Glucose 107 mg/dL (74-106)
[2024-08-29 10:34] LABS: Sodium 133 mmol/L (136-145)
[2024-08-29] MEDS ORDERED: LIDO1PAD55 TOP (14:29)
[2024-08-29] MEDS: ACETAMINOPHEN 500 MG TAB PO PRN (16:05)
[2024-08-29] MEDS: Ensure HIGH Protein Chocolate 8oz Bottle PO SCH (18:00)
[2024-08-30] VITALS (14 sets, daily range): BP systolic 137–148; BP diastolic 59–79; PULSE 89–109; RESP 17–24; TEMP 97.6–98.3; O2SAT 92–100
[2024-08-30 06:22] LABS: Anion Gap 9 (5-15); Carbon Dioxide 19 mmol/L (20-31); Chloride 107 mmol/L (98-107); Potassium 3.8 mmol/L (3.5-5.1); Sodium 135 mmol/L (136-145)
[2024-08-30 06:23] LABS: Calcium 7.8 mg/dL (8.7-10.4)
[2024-08-30 06:28] LABS: BUN/Creatinine Ratio 35.1 (10.0-20.0); Glucose 91 mg/dL (74-106); Magnesium 2.3 mg/dL (1.6-2.6)
[2024-08-30 06:31] LABS: Blood Urea Nitrogen 26 mg/dL (9-23)
[2024-08-30] MEDS: cefTRIAXone 1GM/50ML D5W 50 ML IV SCH (09:30)
--- NOTE | 2024-08-30 09:53 | DVHPN2 ---
Subjective Patient reports that her abdominal pain has improved. Reviewed: Care Plan, H&P, Medications Changes from previous H/P or p: Changes General: Per HPI Objective Vitals Vital Signs Date Time Temp Pulse Resp B/P (MAP) Pulse Ox O2 Delivery O2 Flow Rate FiO2 08/30/24 09:00 98.3 93 24 137/69 (91) 92 98.3 08/29/24 23:10 Nasal Cannula* 2 28 Intake/Output Intake and Output 08/30/24 07:00 Intake Total 1900 ml Balance 1900 ml Intake Oral 475 ml IV Total 1425 ml # Voids 2 # Bowel Movements 1 General Appearance: Alert, Oriented X3, Cooperative, No acute distress HEENT: Atraumatic, PERRLA Lungs: Clear to auscultation, Normal air movement Cardiovascular: Normal S1, Normal S2 Abdomen: Normal bowel sounds, Soft Musculoskeletal: Normal sensory function, Normal motor function Neuro: Normal gait, Normal speech Psych/Mental Status: Mental status NL, Mood NL Medications Current Medications Medications Dose Ordered Sig/Zonia Route Start Time Stop Time Status Last Admin Dose Admin Carbidopa/Levodopa 1 tab TID PO 08/27/24 22:00 08/30/24 05:27 1 TAB Albuterol 2.5 mg Q6HPRN PRN NEB 08/27/24 21:45 Enoxaparin Sodium 30 mg DAILY SC 08/28/24 10:00 08/30/24 09:29 30 MG Nitroglycerin 0.4 mg Q5MINP PRN SL 08/27/24 21:45 Morphine Sulfate 2 mg Q30M PRN IV 08/27/24 21:45 Metronidazole 100 ml @ 100 mls/hr Q8HR IV 08/28/24 06:00 08/30/24 05:28 100 MLS/HR Pantoprazole Sodium 40 mg DAILY IV 08/29/24 10:00 08/30/24 09:29 40 MG Nystatin 1 applic BID TOP 08/28/24 22:00 08/29/24 22:07 1 APPLIC Saccharomyces Boulardii 250 mg DAILY PO 08/29/24 10:00 08/30/24 09:29 250 MG Morphine Sulfate 1 mg Q4HPRN PRN IV 08/28/24 16:15 Acetaminophen/ Hydrocodone Bitart 1 tab Q6HPRN PRN PO 08/28/24 16:15 Acetaminophen 500 mg Q8HP PRN PO 08/28/24 16:15 08/29/24 16:05 500 MG Ondansetron HCl 4 mg Q6HP PRN IV 08/28/24 16:15 Enteral Nutritional Formula 240 ml TIDWM PO 08/29/24 18:00 08/30/24 08:00 240 ML Ceftriaxone Sodium 50 ml @ 100 mls/hr DAILY@09 IV 08/30/24 09:00 08/30/24 09:30 100 MLS/HR Laboratory Results Laboratory Tests 08/28/24 04:35 08/30/24 05:21 Chemistry Test 08/30/24 05:21 Calcium Level 7.8 mg/dL (8.7-10.4) L Magnesium Level 2.3 mg/dL (1.6-2.6) # Urinalysis Test 08/28/24 18:48 Urine Color Yellow (Yellow) Urine Clarity Turbid (Clear) H Urine pH 5.0 (5.0-9.0) Urine Specific [place] 1.019 (1.001-1.035) Urine Protein 1+ (Negative) H Urine Ketones Negative (Negative) Urine Blood 1+ /uL (Negative) H Urine Nitrite Negative (Negative) Urine Bilirubin Negative (Negative) Urine Urobilinogen 2 mg/dL (Negative) H Urine Leukocyte Esterase 3+ /uL (Negative) Urine RBC 6 /hpf (0 - 4) Urine WBC 11 /hpf (0 - 5) Urine Squamous Epithelial Cells Few /hpf (<5) Urine Bacteria Few /hpf (None Seen) H Urine Glucose Normal mg/dL (Normal) Microbiology Microbiology Date/Time Source Procedure Growth Status 08/28/24 18:48 Voided Urine Urine Culture - Preliminary Resulted 08/28/24 16:16 Stool Clostridium difficile Toxin Assay - Final Complete 08/28/24 12:10 Blood Blood Culture - Preliminary NO GROWTH AFTER 24 HOURS OF INCUBATION. Resulted Labs and/or images reviewed: Labs reviewed by me, Image(s) reviewed by me Assessment/Plan Assessment/Plan Impression: -wells colitis -enteritis -history of UTIs -recent lumbar spinal surgery -lumbar compression fractures -primary hypertension -GERD -dyslipidemia -Parkinson's disease -syncope -severe hypomagnesemia Plan: Events: Discussion made with the patient's son who was bedside. Discussed symptoms and diagnostic testing. All questions answered. DC planning for tomorrow once patient was to ambulate and tolerate oral intake as it was still poor at this time. -deescalate antibiotic therapy to Rocephin and Flagyl -UA/UC : Contaminated -physical therapy -repeat magnesium level this p.m.. According to patient's daughter, patient was taking p.o. supplementation of magnesium at home -PPI -DVT prophylaxis -social service consultation to establish PT as an outpatient. Total time spent with patient discussing and formulating plan of care: 35 minutes. This medical document was created using an electronic medical record system with [employer] dictation system. Although this document has been carefully reviewed, there may still be some phonetic and typographical errors. These areas are purely typographical due to imperfections of the software programs, and do not reflect any compromise in the patient's medical care. Plan discussed with: Patient, Other (RN) My Orders Orders - SHAQUILLE HERNANDEZ NP Procedure Category Date Status Time Nutritional PHA 08/29/24 In Process Supplements (Ensure 18:00 Pt Request For Service PT 08/29/24 Logged 19:29 Ceftriaxone 1gm/50ml PHA 08/30/24 In Process D5w (Rocephin) 09:00 Date of Service: Aug 30, 2024 Billing Provider: SHAQUILLE HERNANDEZ NP Common Visit Codes: [id number] INP/OBS CARE(HIGH) SHAQUILLE HERNANDEZ NP Aug 30, 2024 09:53
[2024-08-30] MEDS: ALBUTEROL SULF 2.5 MG/0.5ML(0.5%) NEB SOLN NEB PRN (18:32)
[2024-08-30] MEDS: BUDESONIDE (INHALATION) 0.5 MG/2 ML NEB ONE (18:52)
[2024-08-30] MEDS: methylPREDNISolone SOD SUCC 125 MG/2 ML VL IV ONE (19:10)
--- NOTE | 2024-08-30 19:22 | DVH ---
[facility] [address] [address] Ph: [phone] DIAGNOSTIC IMAGING Diagnostic Imaging Report : [id number] Signed PATIENT: MADHU BAY ACCT: [id number] UNIT: [id number] : 1940 LOC: [facility] ROOM / BED: 027T / B AGE / SEX: 84 / F ADM STATUS: ADM IN SERVICE 02 ORDERING PHYSICIAN: ROHIT SHARMA RESIDENT PROCEDURE(s): CXR1 - CHEST XRAY 1 VIEW REASON: sudden onset of wheezing and chest pain ORDER NUMBER(s): [id number], ACCESSION NUMBER(s): [id number] CHEST RADIOGRAPH Indication:sudden onset of wheezing and chest pain Technique: Single frontal view of the chest was obtained Comparison: XY CHEST PORTABLE on DOS: 08/27/24, XY CHEST PORTABLE on DOS: 07/10/24, XY CHEST PORTABLE on DOS: 07/05/24 FINDINGS: Lines and Tubes: None Lungs: Bibasilar areas of atelectasis or infiltrate. Pleura: No effusion. No pneumothorax. Cardiomediastinal contours: Unremarkable Bones: No acute osseous abnormality. IMPRESSION: 1. Bibasilar areas of atelectasis or infiltrate. ATED BY: DIDIER VALENCIA Jr., DO DICTATED DATE/TIME: 08/30/241918 SIGNED BY: DIDIER VALENCIA Jr., DO SIGNED DATE/TIME: 08/30/241918 CC:
[2024-08-30] MEDS: BUDESONIDE (INHALATION) 0.5 MG/2 ML NEB NEB ONE (19:37)
[2024-08-30 20:06] LABS: Chloride 105 mmol/L (98-107); Potassium 3.2 mmol/L (3.5-5.1); Sodium 133 mmol/L (136-145)
[2024-08-30 20:07] LABS: Anion Gap 6 (5-15); Carbon Dioxide 22 mmol/L (20-31)
[2024-08-30 20:08] LABS: Calcium 8.1 mg/dL (8.7-10.4)
[2024-08-30 20:12] LABS: Glucose 140 mg/dL (74-106)
[2024-08-30 20:13] LABS: BUN/Creatinine Ratio 28.6 (10.0-20.0); Blood Urea Nitrogen 20 mg/dL (9-23); Magnesium 1.8 mg/dL (1.6-2.6)
--- NOTE | 2024-08-30 20:14 | DVH ---
US CHEST ULTRASOUND, HISTORY: possible effusion/aspiration on right lung COMPARISON(S): None TECHNICAL DATA: Transverse and longitudinal images are obtained of the chest. Additional images of th e kidneys were taken. FINDING: Trace right pleural effusion. No left pleural effusion seen. Incidentally noted 7.3 x 7.2 [address] in the left kidney. IMPRESSION(S): Trace right pleural effusion. No left pleural effusion seen.
[2024-08-31] VITALS (18 sets, daily range): BP systolic 125–152; BP diastolic 55–69; PULSE 64–103; RESP 16–20; TEMP 97.5–97.9; O2SAT 92–99
[2024-08-31] MEDS: IPRATROPIUM BROM 0.5 MG/2.5ML INH SOL NEB PRN (00:07)
[2024-08-31] MEDS: LEVALBUTEROL HCL 1.25 MG/3 ML NEB NEB SCH (00:08)
[2024-08-31] MEDS ORDERED: FLUT1SPR5 (12:46)
[2024-08-31] MEDS ORDERED: METR-344 PO (12:46)
[2024-08-31] MEDS ORDERED: CEFP200T15 PO (12:46)
--- NOTE | 2024-08-31 12:50 | DVHDS2 ---
Discharge Summary Date of Admission Aug 27, 2024 at 21:42 Date of Discharge: Aug 31, 2024 Labs/Diagnostic Data: Laboratory Results Test 08/30/24 19:30 08/30/24 18:44 08/28/24 18:48 08/28/24 16:16 Sodium Level 133 mmol/L (136-145) Potassium Level 3.2 mmol/L (3.5-5.1) Chloride Level 105 mmol/L (98-107) Carbon Dioxide Level 22 mmol/L (20-31) Anion Gap 6 (5-15) Blood Urea Nitrogen 20 mg/dL (9-23) Creatinine 0.70 mg/dL (0.550-1.02) Glomerular Filtration Rate Calc 86 mL/min (>90) BUN/Creatinine Ratio 28.6 (10.0-20.0) Serum Glucose 140 mg/dL (74-106) Calcium Level 8.1 mg/dL (8.7-10.4) Magnesium Level 1.8 mg/dL (1.6-2.6) POC Glucose 124 mg/dl (70-106) Urine Color Yellow (Yellow) Urine Clarity Turbid (Clear) Urine pH 5.0 (5.0-9.0) Urine Specific [place] 1.019 (1.001-1.035) Urine Protein 1+ (Negative) Urine Ketones Negative (Negative) Urine Blood 1+ /uL (Negative) Urine Nitrite Negative (Negative) Urine Bilirubin Negative (Negative) Urine Urobilinogen 2 mg/dL (Negative) Urine Leukocyte Esterase 3+ /uL (Negative) Urine RBC 6 /hpf (0 - 4) Urine WBC 11 /hpf (0 - 5) Urine Squamous Epithelial Cells Few /hpf (<5) Urine Bacteria Few /hpf (None Seen) Urine Glucose Normal mg/dL (Normal) Urine Opiates Screen Neg (NEGATIVE) Urine Fentanyl Screen Neg (NEGATIVE) Urine Barbiturates Screen Neg (NEGATIVE) Urine Phencyclidine Screen Neg (NEGATIVE) Urine Amphetamines Screen Neg (NEGATIVE) Urine Benzodiazepines Screen Neg (NEGATIVE) Urine Cocaine Screen Neg (NEGATIVE) Urine Cannabinoids Screen Neg (NEGATIVE) Stool for White Cells Rare Test 08/28/24 12:10 08/28/24 11:00 08/28/24 04:35 08/27/24 20:45 Erythrocyte Sedimentation Rate 9 mm/hr (0-20) Hepatitis B Surface Antigen Negative (Negative) Hepatitis C Antibody Negative (Negative) Prothrombin Time 11.3 sec (9.3-11.8) Prothrombin Time INR 1.07 (0.9-1.15) Activated Partial Thromboplast Time 32.9 SEC (24.5-34.5) Ammonia < 10 umol/L (11-32) Troponin I High Sensitivity 37 ng/L (</=34) White Blood Count 6.3 10^3/uL (4.4-10.8) Red Blood Count 4.47 10^6/uL (4.0-5.20) Hemoglobin 13.8 g/dL (12.2-16.2) Hematocrit 42.3 % (36.0-46.0) Mean Corpuscular Volume 94.6 fL (80.0-100.0) Mean Corpuscular Hemoglobin 30.9 pg (28.0-32.0) Mean Corpuscular Hemoglobin Concent 32.6 g/dL (32.0-36.0) Red Cell Distribution Width 16.4 % (11.8-14.3) Platelet Count 327 10^3/uL (140-450) Mean Platelet Volume 8.3 fL (6.9-10.8) Neutrophils (%) (Auto) 84.4 % (37.0-80.0) Lymphocytes (%) (Auto) 8.8 % (10.0-50.0) Monocytes (%) (Auto) 6.7 % (0.0-12.0) Eosinophils (%) (Auto) 0.0 % (0.0-7.0) Basophils (%) (Auto) 0.1 % (0.0-2.0) Neutrophils # (Auto) 5.3 10 ^3/uL (1.6-8.6) Lymphocytes # (Auto) 0.5 10 ^3/uL (0.4-5.4) Monocytes # (Auto) 0.4 10 ^3/uL (0-1.3) Eosinophils # (Auto) 0 10 ^3/uL (0-0.8) Basophils # (Auto) 0 10 ^3/uL (0-0.2) Nucleated Red Blood Cells 0.0 % Hemoglobin A1c 5.8 % A1C (<5.7) Phosphorus Level 4.8 mg/dL (2.4-5.1) Total Bilirubin 0.7 mg/dL (0.2-1.0) Direct Bilirubin 0.3 mg/dL (<0.3) Aspartate Amino Transferase (AST) 29 U/L (13-40) Alanine Aminotransferase (ALT) 14 U/L (7-40) Alkaline Phosphatase 329 U/L (46-116) C-Reactive Protein High Sensitivity 5.02 mg/dL (<1.0) B-Type Natriuretic Peptide 107.27 pg/mL (0-100) Total Protein 5.8 g/dL (5.7-8.2) Albumin 3.6 g/dL (3.2-4.8) Vitamin B12 Level 175 pg/mL (211-911) Vitamin D 25-Hydroxy 56.7 ng/mL (30.0-100) Thyroid Stimulating Hormone (TSH) 1.70 uIU/mL (0.55-4.78) Lactic Acid Level 1.6 mmol/L (0.4-2.0) Other Laboratory Tests 08/30/24 19:30 08/28/24 04:35 Brief Hx & Hospital Course: 84-year-old female with Parkinson's disease mm syncope, found to have colitis, diarrhea. Improved after IV fluid, started on ceftriaxone and Flagyl, patient also had brbpr, however hemoglobin stable, normocytic, prior history of a h emorrhoids not concerning for GI bleed. Patient able to tolerate oral feeding, we will discharge home with cefpodoxime and p.o. Flagyl, to follow up with primary care Condition at Discharge: Good Final Diagnosis/Problems List acute bacterial enterocolitis syncope 2/2 vasomotor dehydration from diarrhea PD sinusitis chronic renal cyst Discharge Disposition: Home Discharge Instruct/Medications Diet: Consistent carbohydrate Activity: No Restrictions, As Tolerated Follow Up/Referral: PCP Medications: complete cefpodoxime and flagyl for 5 days encourage oral hydration 36 Discharge Statement: "Patient was advised to return to the ER or call 911 if any headaches, dizziness, shortness of breath, chest pain, abdominal pain, bleeding, fevers, or worsening of medical condition. Patient was counseled about treatment plan, medications, possible side effects, patientverbalized understanding. All questions were answered to the best of my ability. This discharge took greater then 30 minutes in planning, reviewing documentation, counseling the patient, and discussing with other team members." ASSESSMENT ASSESSMENT Assessment acute bacterial enterocolitis syncope 2/2 vasomotor dehydration from diarrhea PD sinusitis chronic renal cyst Date of Service: Aug 31, 2024 Billing Provider: HUSSEIN AC MD Common Visit Codes: [id number] DISCH DAY >30min HUSSEIN AC MD Aug 31, 2024 12:50
[2024-08-31] MEDS: MAGNESIUM SULFATE 1GM/100ML 100 ML IV SCH (13:14)
[2024-08-31] MEDS ORDERED: LEVAAER IN (14:11)
== END 2024-08-31 18:54 | disposition home or self-care (01) | DRG 371 ==
LOC: EDBD 17:26 → ER 17:30 → TELE 21:42 → TELE-WESTW 08-28 10:58
PROVIDERS: ADMIT Nurse Practitioner; ATTEND Nurse Practitioner Acute Care
DX: A04.9 Bacterial intestinal infection, unspecified (principal); I21.A1 Myocardial infarction type 2; N17.0 Acute kidney failure with tubular necrosis; M48.56XA Collapsed vertebra, not elsewhere classified, lumbar region, initial encounter for fracture; J96.10 Chronic respiratory failure, unspecified whether with hypoxia or hypercapnia; E86.0 Dehydration; G20.A1 Parkinson's disease without dyskinesia, without mention of fluctuations; N18.9 Chronic kidney disease, unspecified; I12.9 Hypertensive chronic kidney disease with stage 1 through stage 4 chronic kidney disease, or unspecified chronic kidney disease; K21.9 Gastro-esophageal reflux disease without esophagitis; E78.5 Hyperlipidemia, unspecified; E83.41 Hypermagnesemia; E86.1 Hypovolemia; K59.00 Constipation, unspecified; M17.0 Bilateral primary osteoarthritis of knee; E83.42 Hypomagnesemia; I95.1 Orthostatic hypotension; N28.1 Cyst of kidney, acquired; J32.9 Chronic sinusitis, unspecified; Z87.440 Personal history of urinary (tract) infections; Z88.5 Allergy status to narcotic agent; Z88.1 Allergy status to other antibiotic agents; Z90.49 Acquired absence of other specified parts of digestive tract; Z90.710 Acquired absence of both cervix and uterus; Z79.4 Long term (current) use of insulin; Z82.49 Family history of ischemic heart disease and other diseases of the circulatory system; Z83.3 Family history of diabetes mellitus; W18.39XA Other fall on same level, initial encounter; Y93.89 Activity, other specified; Y92.89 Other specified places as the place of occurrence of the external cause; Y99.8 Other external cause status; Z68.26 Body mass index [BMI] 26.0-26.9, adult
CPT/HCPCS: 36415; 70450; 71045; 74176; 76604; 80048; 80076; 80307; 81001; 82140; 82306; 82607; 82962; 83036; 83605; 83735; 83880; 84100; 84132; 84443; 84484; 85025; 85048; 85610; 85652; 85730; 86141; 86803; 87040; 87045; 87086; 87340; 87427; 87493; 93005; 94640; 97110; 97116; 97163; 97530; G0378; J2405; J2470; J3490

== ENCOUNTER 2024-10-15 08:20 | Inpatient (IN) | payer OTHER ==
[~2024-10-15] VITALS: Ht 154.9 cm; Wt 56.0 kg
[~2024-10-15 08:20] MED LIST changes: -ALBUAER3 IN; -AML5T PO; -AZIT-43 PO; -CEFD300C2 PO; +CEFP200T15 PO; -CYCL-611 PO; -DOCU-265 PO; +FLUT1SPR5; -FURO1TAB33 PO; +LEVAAER IN; +LIDO1PAD55 TOP; +METR-344 PO; -OMEP20CA74 OR; -POTA-180 PO
[2024-10-15 08:50] VITALS: PULSE 86; RESP 13; O2SAT 98
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
[2024-10-15 09:33] LABS: Eosinophils # (auto) 0 10 ^3/uL (0-0.8); Hemoglobin 9.2 g/dL (12.2-16.2); Mean Corpuscular Volume 88.5 fL (80.0-100.0); Neutrophils # (auto) 8.9 10 ^3/uL (1.6-8.6)
[2024-10-15 09:36] LABS: Basophils # (auto) 0 10 ^3/uL (0-0.2); Basophils % (auto) 0.4 % (0.0-2.0); Eosinophils % (auto) 0.4 % (0.0-7.0); Hematocrit 28.5 % (36.0-46.0); Lymphocytes # (auto) 2.2 10 ^3/uL (0.4-5.4); Lymphocytes % (auto) 18.5 % (10.0-50.0); Mean Corpuscular Hemoglobin 28.7 pg (28.0-32.0); Mean Corpuscular Hgb Conc. 32.4 g/dL (32.0-36.0); Monocytes # (auto) 0.6 10 ^3/uL (0-1.3); Monocytes % (auto) 5.3 % (0.0-12.0); Neutrophils % (auto) 75.4 % (37.0-80.0); Platelet Count (auto) 563 10^3/uL (140-450); Red Blood Cells 3.22 10^6/uL (4.0-5.20); Red Cell Distribution Width 14.6 % (11.8-14.3); White Blood Cell 11.8 10^3/uL (4.4-10.8)
--- NOTE | 2024-10-15 09:39 | DVH ---
CLINICAL INDICATION: fall TECHNIQUE: XY PELVIS AP Comparison: XY PELVIS AP on DOS: 07/08/24 FINDINGS/IMPRESSION: : There is no evidence of acute fracture or dislocation. Diffuse osteopenia. Moderate degenerative changes of bilateral hips. Moderate volume colonic stool.
[2024-10-15 09:42] LABS: Chloride 104 mmol/L (98-107); Potassium 3.5 mmol/L (3.5-5.1); Sodium 138 mmol/L (136-145)
[2024-10-15 09:43] LABS: Anion Gap 6 (5-15); Carbon Dioxide 28 mmol/L (20-31)
[2024-10-15 09:44] LABS: Calcium 9.4 mg/dL (8.7-10.4)
[2024-10-15 09:49] LABS: BUN/Creatinine Ratio 22.2 (10.0-20.0); Blood Urea Nitrogen 18 mg/dL (9-23)
[2024-10-15 09:57] LABS: Glucose 118 mg/dL (74-106)
[2024-10-15 13:08] LABS: Urine Bacteria None Seen /hpf (None Seen)
[2024-10-15 13:19] LABS: Urine Blood Negative /uL (Negative); Urine Clarity Clear (Clear); Urine Color Colorless (Yellow); Urine Protein, UAD Negative (Negative); Urine Specific Gravity 1.009 (1.001-1.035); Urine Urobilinogen Normal (Negative); Urine WBC <1 /hpf (0 - 5); Urine pH 7.5 (5.0-9.0)
[2024-10-15] MEDS: MORPHINE SULFATE INJ 2 MG/ml SYRG IV ONE (15:30)
[2024-10-15] MEDS: ONDANSETRON HCL 4 MG/2 ML VIAL IV ONE (15:30)
[2024-10-15] MEDS ORDERED: HYDROcodone-ACET 5/325MG TAB PO PRN (16:45)
[2024-10-15] MEDS ORDERED: hydrALAZINE HCL 20 MG/ML VL IV PRN (16:45)
[2024-10-15] MEDS ORDERED: DOCUSATE SOD 100 MG CAP PO PRN (16:45)
[2024-10-15 17:15] VITALS: BP 145/70; PULSE 86; RESP 18; TEMP 97.9; O2SAT 98
--- NOTE | 2024-10-15 17:38 | DVHHP2 ---
History of Present Illness Reason for Visit: Degenerative joint disease (DJD) of hip History of Present Illness The patient is a 84-year-old female with past medical history of GERD, [place], Parkinson's, hyperlipidemia, and hypertension who presented to [facility] ED with complaint of right hip pain status post fall at home. Patient's daughter reports that she had a fall at home and started experiencing right hip pain rating 7/10 numeric scale, getting worse that prompted this visit. Patient was seen and evaluated in the ED, laboratory data shows WBC 11.8, hemoglobin 9 .2, hematocrit 28.5, platelets 563, sodium 138, potassium 3.5, BUN 18, creatinine 0.81, GFR 72, glucose 118, troponin 4, blood pressure 143/69, heart rate 88, temperature 97.9 F, O2 saturation 98% on oxygen. Pelvis x-ray show no evidence of acute fracture or dislocation, noted moderate degenerative change of bilateral hips, diffuse osteopenia. Patient was given morphine sulfate 2 mg IV x1, please see medication orders section in the computer. On my assessment, daughter at bedside, patient denies chest pain, no headache, no dizziness, no diaphoresis, no loss of consciousness, no nausea, no vomiting, no fever, no chills. Patient was admitted for further evaluation and medical management. Past Medical History GERD, High Lipids, HTN, [place], Parkinson's disease Past Surgical History Cholecystectomy, Hysterectomy, Tonsillectomy Family History Reviewed, noncontributory to the management of this case. Past Social History The patient lives at home, denies smoking, alcohol or illicit drugs abuse. Review of Systems Constitutional: Yes: Weakness; No: Fever, Chills, Sweats, Malaise, Other Eyes: No: Pain, Vision change, Conjunctivae inflammation, Eyelid inflammation, Other, Redness ENT: No: Ear pain, Ear discharge, Nose pain, Nose discharge, Nose congestion, Mouth pain, Mouth swelling, Throat pain, Throat swelling, Other Respiratory: No: Cough, Dry, Shortness of breath, SOB with excertion, Wheezing, Hemoptysis, Pleuritic Pain, Sputum, Wheezing, Other Cardiovascular: No: Chest Pain, Palpitations, Orthopnea, Paroxysmal Noc. Dyspnea, Edema, Lt Headedness, Other Gastrointestinal: No: Nausea, Vomiting, Abdominal Pain, Diarrhea, Constipation, Melena, Hematochezia, Other Genitourinary: No Dysuria, No Frequency, No Incontinence, No Hematuria, No Retention, No Other Musculoskeletal: other (Joint pain, right hip pain.); No: neck pain, shoulder pain, arm pain, back pain, hand pain, leg pain, foot pain Skin: No: Rash, Lesions, Jaundice, Bruising, Other Neurological: No: Weakness, Numbness, Incoordination, Change in speech, Confusion, Seizures, Other Allergies: Coded Allergies: Albuterol (Verified Allergy, Severe, 08/31/24) severe sensitivity; SVT TB=278's Elemental Sulfur (Verified Allergy, Mild, Abdominal pain, 04/27/22) Hydromorphone (Verified Allergy, Mild, Itching, 03/29/24) Ciprofloxacin (Verified Allergy, Unknown, 04/27/22) SEVERE NAUSEA Morphine (Verified Allergy, Unknown, 07/05/24) Itching, and hallucinates Aspirin (Verified Adverse Reaction, Mild, 07/05/24) Doesnt take due to stomach issues Medications Current Medications Medications Dose Ordered Sig/Zonia Route Start Time Stop Time Status Last Admin Dose Admin Levalbuterol HCl 0.625 mg Q6HR NEB 10/15/24 18:00 Amlodipine Besylate 5 mg DAILY PO 10/16/24 10:00 Hydralazine HCl 10 mg Q6HP PRN IV 10/15/24 16:45 Ceftriaxone Sodium 50 ml @ 100 mls/hr DAILY@09 IV 10/16/24 09:00 Carbidopa/Levodopa 1 tab BID PO 10/15/24 22:00 Famotidine 10 mg DAILY IV 10/16/24 10:00 Sodium Chloride 1,000 ml @ 60 mls/hr [id number] IV 10/15/24 16:45 Acetaminophen/ Hydrocodone Bitart 1 tab Q4HP PRN PO 10/15/24 16:45 Ondansetron HCl 4 mg Q4HP PRN IV 10/15/24 16:45 Docusate Sodium 100 mg BIDPRN PRN PO 10/15/24 16:45 Acetaminophen 650 mg Q6HP PRN PO 10/15/24 16:45 Carbidopa/Levodopa 0.5 tab DAILY@1500 PO 10/16/24 15:00 Exam Vital Signs Vital Signs Date Time Temp Pulse Resp B/P (MAP) Pulse Ox O2 Delivery O2 Flow Rate FiO2 10/15/24 17:15 97.9 86 18 145/70 98 2.0 28 97.9 10/15/24 08:50 Nasal Cannula* General Appearance: Alert, Oriented X3, Cooperative, No acute distress HEENT: Atraumatic, PERRLA, EOMI, Mucous membr. moist/pink Respiratory: Clear to auscultation, Normal air movement Cardiovascular: Regular rate, Normal S1, Normal S2, No murmurs Abdominal: Normal bowel sounds, Soft, No tenderness, No hepatospenomegaly, No masses Extremities: No clubbing, No cyanosis, No edema, Normal pulses, Other (Right hip tenderness) Skin: No rashes, No breakdown, No significant lesion Neuro: Normal speech, Normal tone, Sensation intact, Cranial nerves 3-12 NL, Reflexes 2+, Other (Generalized weakness) Psych/Mental Status: Mental status NL, Mood NL Labs/Xrays Labs Test 10/15/24 13:00 10/15/24 09:10 Range/Units Urine Color Colorless Yellow Urine Clarity Clear Clear Urine pH 7.5 5.0-9.0 Urine Specific [place] 1.009 1.001-1.035 Urine Protein Negative Negative Urine Ketones Negative Negative Urine Blood Negative Negative /uL Urine Nitrite Negative Negative Urine Bilirubin Negative Negative Urine Urobilinogen Normal Negative mg/dL Urine Leukocyte Esterase Negative Negative /uL Urine RBC <1 0 - 4 /hpf Urine WBC <1 0 - 5 /hpf Urine Squamous Epithelial Cells Few <5 /hpf Urine Bacteria None seen None Seen /hpf Urine Glucose Normal Normal mg/dL White Blood Count 11.8 H 4.4-10.8 10^3/uL Red Blood Count 3.22 L 4.0-5.20 10^6/uL Hemoglobin 9.2 L 12.2-16.2 g/dL Hematocrit 28.5 L 36.0-46.0 % Mean Corpuscular Volume 88.5 80.0-100.0 fL Mean Corpuscular Hemoglobin 28.7 28.0-32.0 pg Mean Corpuscular Hemoglobin Concent 32.4 32.0-36.0 g/dL Red Cell Distribution Width 14.6 H 11.8-14.3 % Platelet Count 563 H 140-450 10^3/uL Mean Platelet Volume 6.2 L 6.9-10.8 fL Neutrophils (%) (Auto) 75.4 37.0-80.0 % Lymphocytes (%) (Auto) 18.5 10.0-50.0 % Monocytes (%) (Auto) 5.3 0.0-12.0 % Eosinophils (%) (Auto) 0.4 0.0-7.0 % Basophils (%) (Auto) 0.4 0.0-2.0 % Neutrophils # (Auto) 8.9 H 1.6-8.6 10 ^3/uL Lymphocytes # (Auto) 2.2 0.4-5.4 10 ^3/uL Monocytes # (Auto) 0.6 0-1.3 10 ^3/uL Eosinophils # (Auto) 0 0-0.8 10 ^3/uL Basophils # (Auto) 0 0-0.2 10 ^3/uL Nucleated Red Blood Cells 0.0 % Sodium Level 138 136-145 mmol/L Potassium Level 3.5 3.5-5.1 mmol/L Chloride Level 104 98-107 mmol/L Carbon Dioxide Level 28 20-31 mmol/L Anion Gap 6 5-15 Blood Urea Nitrogen 18 9-23 mg/dL Creatinine 0.81 0.550-1.02 mg/dL Glomerular Filtration Rate Calc 72 >90 mL/min BUN/Creatinine Ratio 22.2 H 10.0-20.0 Serum Glucose 118 H 74-106 mg/dL Calcium Level 9.4 8.7-10.4 mg/dL Troponin I High Sensitivity 4 </=34 ng/L PATIENT: MADHU BAY ACCT: [id number] UNIT: [id number] : 1940 LOC: ER ROOM / BED: / AGE / SEX: 84 / F ADM STATUS: REG ER SERVICE 0854 ORDERING PHYSICIAN: ALIS MARTINEZ MD PROCEDURE(s): PELVS - PELVIS AP REASON: fall ORDER NUMBER(s): [id number], ACCESSION NUMBER(s): [id number] CLINICAL INDICATION: fall TECHNIQUE: XY PELVIS AP Comparison: XY PELVIS AP on DOS: 07/08/24 FINDINGS/IMPRESSION: : There is no evidence of acute fracture or dislocation. Diffuse osteopenia. Moderate degenerative changes of bilateral hips. Moderate volume colonic stool. 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 Admit to Med-Surg unit 2. Breathing treatment 3. Pain control management 4. IV antibiotic management 5. Management of fluids and electrolytes 6. Consultation for hospitalist 7. Diagnostic test pelvis x-ray 8. DVT prophylaxis-on Lovenox 9. Repeat labs CBC, CMP in a.m. 10. Home medication reviewed and reconciled 11. Continue with current medical management 12. Treatment plan discussed with patient and RN. Patient/daughter verbalized understanding. Plan discussed with: Patient, Daughter (At bedside), Other (RN) My Orders Orders - EDWARD LEGGETT DNP Procedure Category Date Status Time Levalbuterol Hcl PHA 10/15/24 In Process (Xopenex Medneb) 18:00 Amlodipine Tablet PHA 10/16/24 In Process (Norvasc Tablet) 10:00 Hydralazine Injection PHA 10/15/24 In Process (Apresoline Inject 16:45 Ceftriaxone 1gm/50ml PHA 10/16/24 In Process D5w (Rocephin) 09:00 Type And Screen BBK 10/15/24 Logged 16:37 Carbidopa W Levodopa PHA 10/15/24 In Process 25/250mg (Sinemet 2 22:00 Famotidine Injection PHA 10/16/24 In Process (Pepcid Injection) 10:00 Allergies RADHA 10/15/24 In Process 16:37 Code Status CODE 10/15/24 Transmitted 16:37 Sodium Chloride 0.9% PHA 10/15/24 In Process 16:45 Oxygen Per Hour RT 10/15/24 Transmitted 16:37 Hydrocodone-Acet PHA 10/15/24 In Process 5/325mg Tab ([place] 16:45 Ondansetron Hcl PHA 10/15/24 In Process (Zofran) 16:45 Docusate Sodium PHA 10/15/24 In Process Capsule (Colace 16:45 Fall Risk Precautions RADHA 10/15/[address] 16:37 Complete Blood Count LAB 10/16/24 Verified 04:00 Comprehensive LAB 10/16/24 Verified Metabolic Panel 04:00 Cardiac DIET 10/15/24 Transmitted Diet-2gna,Lofat,Lochol Dinner Condition: Serious RADHA 10/15/24 In Process 16:37 Acetaminophen Tablet [facility] 10/15/24 In Process (Tylenol Tablet) 16:45 Sequential [facility] 10/15/24 In Process Compression Device Carbidopa W Levodopa [facility] 10/16/24 In Process 25/250mg (Sinemet 2 15:00 Admit ADMIT 10/15/24 Verified 17:36 Nitroglycerin [facility] 10/15/24 Verified Sublingual (Ntrostat 17:45 Notify Md Of Changes [facility] 10/15/24 Verified From Base 17:36 Screener Operator For [facility] 10/15/24 Verified 24 Hours 17:36 Emergency Dysrhythmia [facility] 10/15/24 Verified Protocol 17:36 Oxygen By Nasal RT 10/15/24 Verified Cannula 17:36 Problem List: (1) Fall with injury (2) Degenerative joint disease (DJD) of hip (3) Parkinson disease (4) Leukocytosis, unspecified (5) Thrombocytosis (6) Parkinson's disease without dyskinesia, without mention of fluctuations (7) Unilateral primary osteoarthritis, right hip (8) Anemia, unspecified (9) Generalized weakness Date of Service: Oct 15, 2024 Billing Provider: EDWARD LEGGETT DNP Common Visit Codes: [id number] INP/OBS CARE (HIGH) EDWARD LEGGETT DNP Oct 15, 2024 17:38
[2024-10-15] MEDS ORDERED: NITROGLYCERIN 0.4 MG SL TAB SL PRN (17:45)
[2024-10-15] MEDS: LEVALBUTEROL HCL 1.25 MG/3 ML NEB NEB SCH (18:00)
[2024-10-15 18:36] VITALS: PULSE 86; RESP 18; O2SAT 96
[2024-10-15] MEDS: cefTRIAXone 1GM/50ML D5W 50 ML IV ONE (18:38)
[2024-10-15] MEDS: SODIUM CHLORIDE 0.9% 1,000 ML IV SCH (18:38)
[2024-10-15 18:42] VITALS: PULSE 85; RESP 18; O2SAT 96
[2024-10-15] MEDS: ENOXAPARIN SOD 30 MG/0.3 ML SYRINGE SC ONE (19:15)
--- NOTE | 2024-10-15 20:47 | DVH ---
CLINICAL HISTORY: FALL WITH HEAD INJURY TECHNIQUE: Helical imaging carried out from skull base to vertex without intravenous contrast. This e xam was performed according to our departmental dose optimization program. Up-to-date CT equipment an d radiation dose reduction techniques are utilized as appropriate. WID: COMPARISON: CT HEAD WITHOUT CONTRAST on DOS: 08/27/24 FINDINGS: Mild cerebral volume loss with concordant prominence of the subarachnoid spaces and ventricles. Mild patchy low attenuation in the cerebral white matter consistent with nonspecific white matter disease. There is no midline shift or mass effect. The marcus white matter interfaces are maintained. The basal cisterns are patent. There is no evidence of acute intracranial hemorrhage or extra-axial fluid colle ction. The mastoid air cells and visualized paranasal sinuses are well-aerated aside from a mucous re tention cyst or polyp in the left sphenoid sinus IMPRESSION: 1. No acute intracranial abnormality. 2. Mild cerebral volume loss and mild chronic microvascular ischemic change.
[2024-10-15] MEDS: ONDANSETRON HCL 4 MG/2 ML VIAL IV PRN (20:57)
[2024-10-15] MEDS: MORPHINE SULFATE INJ 2 MG/ml SYRG IV PRN (20:57)
[2024-10-15] MEDS: CARBIDOPA W LEVODOPA 25/250mg TABLET PO SCH (22:00)
[2024-10-15 23:21] VITALS: BP 120/61; PULSE 83; RESP 16; TEMP 98.1; O2SAT 90
[2024-10-15] MEDS: MELATONIN 5 MG TAB PO ONE (23:25)
[2024-10-16] VITALS (11 sets, daily range): BP systolic 106–142; BP diastolic 53–79; PULSE 71–85; RESP 14–16; TEMP 97.5–98.3; O2SAT 14–100
[2024-10-16] MEDS ORDERED: CYCL-838 PO (01:34)
[2024-10-16] MEDS ORDERED: DOCU-94 PO (01:34)
[2024-10-16] MEDS ORDERED: CARB1TAB73 PO ×2 (01:39)
[2024-10-16 07:16] LABS: Basophils # (auto) 0.1 10 ^3/uL (0-0.2); Basophils % (auto) 0.9 % (0.0-2.0); Eosinophils # (auto) 0.3 10 ^3/uL (0-0.8); Eosinophils % (auto) 4.2 % (0.0-7.0); Hematocrit 25.7 % (36.0-46.0); Hemoglobin 8.3 g/dL (12.2-16.2); Lymphocytes # (auto) 2.3 10 ^3/uL (0.4-5.4); Lymphocytes % (auto) 35.1 % (10.0-50.0); Mean Corpuscular Hemoglobin 28.6 pg (28.0-32.0); Mean Corpuscular Hgb Conc. 32.4 g/dL (32.0-36.0); Mean Corpuscular Volume 88.1 fL (80.0-100.0); Monocytes # (auto) 0.5 10 ^3/uL (0-1.3); Monocytes % (auto) 8.3 % (0.0-12.0); Neutrophils # (auto) 3.3 10 ^3/uL (1.6-8.6); Neutrophils % (auto) 51.5 % (37.0-80.0); Platelet Count (auto) 500 10^3/uL (140-450); Red Blood Cells 2.92 10^6/uL (4.0-5.20); Red Cell Distribution Width 14.9 % (11.8-14.3); White Blood Cell 6.4 10^3/uL (4.4-10.8)
[2024-10-16 07:32] LABS: Alanine Aminotransferase 10 U/L (7-40); Albumin 3.5 g/dL (3.2-4.8); Alkaline Phosphatase 87 U/L (46-116); Anion Gap 7 (5-15); Aspartate Aminotransferase 17 U/L (13-40); Blood Urea Nitrogen 15 mg/dL (9-23); Carbon Dioxide 26 mmol/L (20-31); Chloride 103 mmol/L (98-107); Glucose 100 mg/dL (74-106); Sodium 136 mmol/L (136-145)
[2024-10-16 07:33] LABS: Bilirubin, Total 0.4 mg/dL (0.2-1.0); Total Protein 5.8 g/dL (5.7-8.2)
[2024-10-16 07:44] LABS: Calcium 7.5 mg/dL (8.7-10.4)
[2024-10-16] MEDS: amLODIPine BESYLATE 5 MG TAB PO SCH (10:00)
[2024-10-16] MEDS: FAMOTIDINE (10MG/ML) 2ML VL IV SCH (10:00)
[2024-10-16] MEDS: cefTRIAXone 1GM/50ML D5W 50 ML IV SCH (11:12)
[2024-10-16] MEDS: ENOXAPARIN SOD 30 MG/0.3 ML SYRINGE SC SCH (11:12)
[2024-10-16] MEDS ORDERED: TRAM-626 PO (15:04)
[2024-10-16] MEDS ORDERED: CYCL-837 PO (15:28)
--- NOTE | 2024-10-16 15:33 | DVHDSRES ---
Discharge Summary Date of Admission Resident Creating Document: JAZMYNE WHITE RESIDENT Oct 15, 2024 at 17:36 Date of Discharge: Oct 16, 2024 Admitting Diagnosis S/p mechanical fall Labs/Diagnostic Data: Laboratory Results Test 10/16/24 06:03 10/15/24 13:00 10/15/24 09:10 White Blood Count 6.4 10^3/uL (4.4-10.8) Red Blood Count 2.92 10^6/uL (4.0-5.20) Hemoglobin 8.3 g/dL (12.2-16.2) Hematocrit 25.7 % (36.0-46.0) Mean Corpuscular Volume 88.1 fL (80.0-100.0) Mean Corpuscular Hemoglobin 28.6 pg (28.0-32.0) Mean Corpuscular Hemoglobin Concent 32.4 g/dL (32.0-36.0) Red Cell Distribution Width 14.9 % (11.8-14.3) Platelet Count 500 10^3/uL (140-450) Mean Platelet Volume 6.5 fL (6.9-10.8) Neutrophils (%) (Auto) 51.5 % (37.0-80.0) Lymphocytes (%) (Auto) 35.1 % (10.0-50.0) Monocytes (%) (Auto) 8.3 % (0.0-12.0) Eosinophils (%) (Auto) 4.2 % (0.0-7.0) Basophils (%) (Auto) 0.9 % (0.0-2.0) Neutrophils # (Auto) 3.3 10 ^3/uL (1.6-8.6) Lymphocytes # (Auto) 2.3 10 ^3/uL (0.4-5.4) Monocytes # (Auto) 0.5 10 ^3/uL (0-1.3) Eosinophils # (Auto) 0.3 10 ^3/uL (0-0.8) Basophils # (Auto) 0.1 10 ^3/uL (0-0.2) Nucleated Red Blood Cells 0.0 % Sodium Level 136 mmol/L (136-145) Potassium Level 4.0 mmol/L (3.5-5.1) Chloride Level 103 mmol/L (98-107) Carbon Dioxide Level 26 mmol/L (20-31) Anion Gap 7 (5-15) Blood Urea Nitrogen 15 mg/dL (9-23) Creatinine 0.79 mg/dL (0.550-1.02) Glomerular Filtration Rate Calc 74 mL/min (>90) BUN/Creatinine Ratio 19.0 (10.0-20.0) Serum Glucose 100 mg/dL (74-106) Calcium Level 7.5 mg/dL (8.7-10.4) Total Bilirubin 0.4 mg/dL (0.2-1.0) Aspartate Amino Transferase (AST) 17 U/L (13-40) Alanine Aminotransferase (ALT) 10 U/L (7-40) Alkaline Phosphatase 87 U/L (46-116) Total Protein 5.8 g/dL (5.7-8.2) Albumin 3.5 g/dL (3.2-4.8) Urine Color Colorless (Yellow) Urine Clarity Clear (Clear) Urine pH 7.5 (5.0-9.0) Urine Specific [place] 1.009 (1.001-1.035) Urine Protein Negative (Negative) Urine Ketones Negative (Negative) Urine Blood Negative /uL (Negative) Urine Nitrite Negative (Negative) Urine Bilirubin Negative (Negative) Urine Urobilinogen Normal mg/dL (Negative) Urine Leukocyte Esterase Negative /uL (Negative) Urine RBC <1 /hpf (0 - 4) Urine WBC <1 /hpf (0 - 5) Urine Squamous Epithelial Cells Few /hpf (<5) Urine Bacteria None seen /hpf (None Seen) Urine Glucose Normal mg/dL (Normal) Troponin I High Sensitivity 4 ng/L (</=34) Other Laboratory Tests 10/16/24 06:03 Brief Hx & Hospital Course: The patient is a 84-year-old female with past medical history of GERD, VA, Parkinson's, hyperlipidemia, and hypertension who presented to [place] [facility] ED with complaint of right hip pain status post fall at home. Patient's daughter reports that she had a fall at home and started experiencing right hip pain rating 7/10 numeric scale, getting worse that prompted this visit. Patient was seen and evaluated in the ED, laboratory data shows WBC 11.8, hemoglobin 9.2, hematocrit 28.5, platelets 563, sodium 138, potassium 3.5, BUN 18, creatinine 0.81, GFR 72, glucose 118, troponin 4, blood pressure 143/69, heart rate 88, temperature 97.9 F, O2 saturation 98% on oxygen. Pelvis x-ray show no evidence of acute fracture or dislocation, noted moderate degenerative change of bilateral hips, diffuse osteopenia. Patient was given morphine sulfate 2 mg IV x1, please see medication orders section in the computer. On my assessment, daughter at bedside, patient denies chest pain, no headache, no dizziness, no diaphoresis, no loss of consciousness, no nausea, no vomiting, no fever, no chills. Patient was admitted for further evaluation and medical management. Hospital course: Pelvic x-ray showed no evidence of acute fracture or dislocation. Diffuse osteopenia. Moderate degenerative changes of bilateral hips. Moderate volume colonic stool. Head CT showed no acute intracranial abnormality. Mild cerebral volume loss and mild chronic microvascular ischemic change. Pain was managed with Tylenol, [place] for moderate pain and morphine for severe pain. Patient was also continued on home medications amlodipine, carbidopa with levodopa, levalbuterol. Pneumococcal vaccination was also administered to the patient. On the day of discharge, patient completed PT evaluation and was able to ambulate from the restroom. She had stable vital signs and appeared well, patient was sent home with tramadol for 3 days and cyclobenzaprine for 1 week. Her hospital course was uncomplicated. Condition at Discharge: Fair Final Diagnosis/Problems List S/p mechanical fall Degenerative joint disease of the hip Parkinson's disease Thrombocytosis Generalized weakness Leukocytosis Anemia, likely of chronic disease Discharge Disposition: Home Discharge Instruct/Medications Diet: Regular Activity: No Restrictions, As Tolerated Follow Up/Referral: Please follow up with labs, CBC and BMP in 1-2 weeks with your PCP Please follow up in the discharge clinic Medications: Tramadol 50 mg 3 times a day Cyclobenzaprine 5 mg 3 times a day as needed for pain Discharge Statement: "Patient was advised to return to the ER or call 911 if any headaches, dizziness, shortness of breath, chest pain, abdominal pain, bleeding, fevers, or worsening of medical condition. Patient was counseled about treatment plan, medications, possible side effects, patientverbalized understanding. All questions were answered to the best of my ability. This discharge took greater then 30 minutes in planning, reviewing documentation, counseling the patient, and discussing with other team members." ASSESSMENT ASSESSMENT Assessment S/p mechanical fall Degenerative joint disease of the hip Parkinson's disease Thrombocytosis Generalized weakness Leukocytosis Anemia, likely of chronic disease Date of Service: Oct 16, 2024 Billing Provider: HUSSEIN AC MD Common Visit Codes: 58948-QCQ/OBS DISCH DAY >30min JAZMYNE WHITE RESIDENT Oct 16, 2024 15:33 HUSSEIN AC MD Oct 17, 2024 08:51
[2024-10-16] MEDS: ACETAMINOPHEN 325 MG TAB PO PRN (16:28)
[2024-10-16] MEDS: CARBIDOPA W LEVODOPA 25/250mg TABLET PO SCH (16:29)
[2024-10-17] MEDS ORDERED: PNEUMOCOCCAL VACC POLYS 25 MCG/0.5 ML VIAL IM ONE (08:00)
== END 2024-10-16 18:45 | disposition home or self-care (01) | DRG 554 ==
LOC: EDBD 08:20 → ER 08:20 → OVERFLOW 17:36 → WEST WING 21:30
PROVIDERS: ADMIT Nurse Practitioner Family; ATTEND Nurse Practitioner Family
DX: M16.11 Unilateral primary osteoarthritis, right hip (principal); G20.A1 Parkinson's disease without dyskinesia, without mention of fluctuations; D72.829 Elevated white blood cell count, unspecified; D75.839 Thrombocytosis, unspecified; I10 Essential (primary) hypertension; K21.9 Gastro-esophageal reflux disease without esophagitis; E78.5 Hyperlipidemia, unspecified; D63.8 Anemia in other chronic diseases classified elsewhere; Z90.710 Acquired absence of both cervix and uterus; Z88.5 Allergy status to narcotic agent; Z88.1 Allergy status to other antibiotic agents; Z83.3 Family history of diabetes mellitus; Z82.49 Family history of ischemic heart disease and other diseases of the circulatory system; Z79.899 Other long term (current) drug therapy; Z88.6 Allergy status to analgesic agent; Z88.8 Allergy status to other drugs, medicaments and biological substances; I25.2 Old myocardial infarction
CPT/HCPCS: 36415; 70450; 72170; 80048; 80053; 81001; 84484; 85025; 86850; 86900; 86901; 94640; 96365; 96375; 97163; G0378; J2405; J3490

== ENCOUNTER → 2024-10-24 | Outpatient (CLI) | payer OTHER ==
[~2024-10-24] MED LIST changes: -ACET650T12 PO; -ALBU108A5 IN; -ALPR0.25 PO; +CYCL-837 PO; -CYCL-839 PO; -LIDO1PAD55 TOP; -METR-344 PO; +TRAM-626 PO
[2024-10-24 16:21] LABS: Basophils # (auto) 0.1 10 ^3/uL (0-0.2); Eosinophils # (auto) 0.1 10 ^3/uL (0-0.8); Mean Corpuscular Hemoglobin 28.3 pg (28.0-32.0); Monocytes # (auto) 0.6 10 ^3/uL (0-1.3); Neutrophils # (auto) 4.8 10 ^3/uL (1.6-8.6)
[2024-10-24 16:25] LABS: Basophils % (auto) 0.9 % (0.0-2.0); Eosinophils % (auto) 1.7 % (0.0-7.0); Hematocrit 27.7 % (36.0-46.0); Hemoglobin 9.2 g/dL (12.2-16.2); Lymphocytes # (auto) 2.7 10 ^3/uL (0.4-5.4); Mean Corpuscular Hgb Conc. 33.1 g/dL (32.0-36.0); Mean Corpuscular Volume 85.4 fL (80.0-100.0); Neutrophils % (auto) 57.4 % (37.0-80.0); Nucleated Red Blood Cells % 0.1 %; Platelet Count (auto) 625 10^3/uL (140-450); Red Blood Cells 3.25 10^6/uL (4.0-5.20); White Blood Cell 8.3 10^3/uL (4.4-10.8)
[2024-10-24 16:44] LABS: Alkaline Phosphatase 110 U/L (46-116); Anion Gap 8 (5-15); Aspartate Aminotransferase 16 U/L (13-40); BUN/Creatinine Ratio 24.2 (10.0-20.0); Blood Urea Nitrogen 22 mg/dL (9-23); Calcium 9.7 mg/dL (8.7-10.4); Carbon Dioxide 27 mmol/L (20-31); Chloride 99 mmol/L (98-107); Phosphorus 4.3 mg/dL (2.4-5.1); Potassium 4.2 mmol/L (3.5-5.1); Total Protein 6.9 g/dL (5.7-8.2)
[2024-10-24 16:49] LABS: Alanine Aminotransferase < 9 U/L (7-40); Bilirubin, Total 0.3 mg/dL (0.2-1.0); Glucose 125 mg/dL (74-106); Sodium 134 mmol/L (136-145)
[2024-10-24 16:51] LABS: Thyroid Stimulating Hormone 1.95 uIU/mL (0.55-4.78)
[2024-10-24 17:11] LABS: Reticulocyte % (auto) 1.84 % (0.5-1.5)
== END | disposition home or self-care (01) ==
LOC: LAB 15:51
PROVIDERS: ATTEND Internal Medicine
DX: D64.9 Anemia, unspecified (principal); D75.839 Thrombocytosis, unspecified; Z79.899 Other long term (current) drug therapy
CPT/HCPCS: 36415; 80053; 82306; 83540; 83615; 83970; 84100; 84439; 84443; 85025; 85045

== ENCOUNTER → 2025-03-14 | Outpatient (CLI) | payer OTHER | END | disposition home or self-care (01) | LOC: LAB 11:51 | PROVIDERS: ATTEND Internal Medicine | DX: Z01.812 Encounter for preprocedural laboratory examination (principal); R30.0 Dysuria | CPT/HCPCS: 87086; 87088; 87186 ==

== ENCOUNTER 2025-03-18 18:31 | Emergency (ER) | payer MEDICARE, OTHER ==
[~2025-03-18] VITALS: Ht 152.4 cm; Wt 59.0 kg
--- NOTE | 2025-03-18 18:57 | ED.PDOC ---
HPI Comments Vitals: temperature of 98.1F, pulse of 84, respiratory rate of 18, blood pressure of 173/80, spO2 of 92%RA. HPI: Poor Historian. 84-year-old female presents to emergency department for evaluation of elevated blood pressure in the 190s systolic use a day. Family gave the patient a total of 100 mg of lisinopril. Patient denies any associated chest pain or shortness of breath. She has some mild dizziness and sensation of fullness in her head. Denies any other symptoms. Vitals: temperature of 98.1F, pulse of 84, respiratory rate of 18, blood pressure of 173/80, SpO2 of 92%RA Past medical history hypertension, Parkinson's disease , hyperlipidemia, Past Surgical history: Lift, bladder lift, hysterectomy, cholecystectomy, spinal surgery tonsillectomy REVIEW OF SYSTEMS: CONSTITUTIONAL: Denies acute: fever, diaphoresis, chills, generalized weakness. HEAD: Denies acute: headache, photophobia Eyes: Denies acute: Double vision, vision loss, eye pain, eye discharge. EARS: Denies acute: tinnitus, hearing loss, ear discharge, ear pain, THROAT: Denies acute: sore throat, swelling, difficulty swallowing , pain with swallowing, change in voice. NECK: Denies acute: neck pain, neck swelling, stiff neck. HEART: Denies acute : chest pain, palpitations, LUNGS: Denies acute: SOB, wheezing, cough, hemoptysis ABDOMEN: Denies acute: abdominal pain, Nausea, Vomiting, diarrhea, melena , hematemesis, hematochezia SKIN: Denies acute: rash, redness, lesions, itchiness. EXTREMITIES: Denies acute: calf pain, numbness, tingling, weakness, denies pain in extremity. Denies acute: Low back pain. Neuro: Denies acute: focal neurological deficit, motor or sensory focal neurological deficit, tremors, seizure like activity, confusion, change in mental status, loss of bowel or bladder function, cauda equina like symptoms. : Denies acute: dysuria, hematuria, flank pain, increase in urinary frequency. PSYCH: Denies acute: hallucination, suicidal ideation, homicidal ideation. FEMALE: Denies acute: abnormal vaginal bleeding, foul odor, unusual discharge. PHYSICAL EXAM: General: ----mild----acute distress, awake and alert. Head: normocephalic, atraumatic. Neck: supple, trachea is midline, no swelling. Throat: Normal phonation. Eyes:, no erythema, no purulent discharge, no proptosis, no icterus. Heart: regular rate, regular rhythm, no significant murmur appreciated. Lungs: no apparent respiratory distress, Able to speak in full sentences. No wheezing, no rhonchi, no crackles. No stridors Clear to auscultation bilaterally. Abdomen: non tender to palpation, non distended, soft, no guarding, no rebound, + bowel sounds. Neuro: Awake, Alert, oriented to name, self, situation, follows commands. Patient has chronic resting tremors with a history of Parkinson's disease. GCS=15. Speech is normal. Skin: no petechia, no purpura, no cyanosis, non-pale, not jaundice. Lower extremities: --no - Pitting edema no deformity, no focal swelling, no calf TTP. Makes eye contact. moves all four extremities. Face: no apparent facial droop. ED COURSE: Chief Complaint: High Blood Pressure Time Seen by MD: 18:45 Primary Care Provider: UNKNOWN Reviewed Notes: Nurses Notes, Medications, Allergies Allergies: Coded Allergies: Albuterol (Verified Allergy, Severe, 08/31/24) severe sensitivity; SVT EK=794's Elemental Sulfur (Verified Allergy, Mild, Abdominal pain, 04/27/22) Hydromorphone (Verified Allergy, Mild, Itching, 03/29/24) Morphine (Verified Allergy, Unknown, 07/05/24) Itching, and hallucinates Aspirin (Verified Adverse Reaction, Mild, 07/05/24) Doesnt take due to stomach issues Uncoded Allergies: SULFER (Allergy, Unknown, 03/18/25) Home Meds Active Scripts Cyclobenzaprine Hcl (Cyclobenzaprine Hcl) 5 Mg Tab, 1 TAB PO TID for 30 Days, #90 TAB 0 Refills Prov:JAZMYNE WHITE 10/16/24 Tramadol HCl (Tramadol HCl) 50 Mg Tab, 50 MG PO TID for 3 Days, #9 TAB Prov:HUSSEIN AC MD 10/16/24 Levalbuterol Tartrate (Xopenex Hfa) 45 Mcg/Act Aer, 45 MCG IN PRN PRN, #1 AER Prov:HUSSEIN AC MD 08/31/24 Fluticasone Propionate (Nasal) (Flonase Allergy Relief) 50 Mcg/Act Spr, 50 MCG NA BID for 30 Days, #1 SPRAY Prov:HUSSEIN AC MD 08/31/24 Cefpodoxime Proxetil (Cefpodoxime Proxetil) 200 Mg Tab, 200 MG PO BID for 5 Days, #10 TAB Prov:HUSSEIN AC MD 08/31/24 Reported Medications Carbidopa-Levodopa (Carbidopa/Levodopa Odt 25-250 mg) 1 Tab Tab, 0.5 TAB PO DAILY@LUNCH, TAB 10/16/24 Carbidopa-Levodopa (Carbidopa/Levodopa Odt 25-250 mg) 1 Tab Tab, 1 TAB PO BID, TAB 10/16/24 Docusate Sodium (Colace) 100 Mg Cap, 2 CAP PO PRN for FOR CONSTIPATION, #30 CAP 10/16/24 Pantoprazole Sodium Sesquihydr (Protonix) 40 Mg Tab, 1 TAB PO DAILY for 90 Days, #90 08/29/24 Amlodipine Besylate (Amlodipine Besylate) 5 Mg Tab, 1 TAB PO DAILY for 90 Days, #90 08/29/24 Lisinopril (Lisinopril) 40 Mg Tab, 1 TAB PO DAILY for 100 Days, #100 09/16/19 Information Source: Patient, Relative Mode of Arrival: Wheelchair Past Medical History PAST MEDICAL HISTORY: GERD, High Lipids, HTN, [place] Surgical History: Cholecystectomy, Hysterectomy, Tonsillectomy 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 Was a procedure done?: No CP Differential Dx Differential Diagnosis: N/A Differential Diagnosis: Other (DDX include renal disease, thyroid disease, electrolyte abnormality, increased salt intake, medications non-compliance, undiagnosed HTN, Hypertensive crisis, hypertensive urgency., drug toxicity.) X-Ray, Labs, Meds, VS Vital Signs Date Time Temp Pulse Resp B/P (MAP) Pulse Ox O2 Delivery O2 Flow Rate FiO2 03/18/25 21:29 Room Air* 0 21 03/18/25 21:29 98.0 76 18 134/75 (94) 96 98.0 03/18/25 19:00 82 03/18/25 18:46 98.1 84 18 173/80 (111) 92 98.1 Lab Test 03/18/25 20:56 03/18/25 19:58 03/18/25 19:05 Range/Units Urine Color Colorless Yellow Urine Clarity Clear Clear Urine pH 8.0 5.0-9.0 Urine Specific [place] 1.007 1.001-1.035 Urine Protein Negative Negative Urine Ketones Negative Negative Urine Blood Negative Negative /uL Urine Nitrite Negative Negative Urine Bilirubin Negative Negative Urine Urobilinogen Normal Negative mg/dL Urine Leukocyte Esterase Negative Negative /uL Urine RBC 1 0 - 4 /hpf Urine Microscopic WBC 1 0-5 /HPF Urine Squamous Epithelial Cells Few <5 /hpf Urine Amorphous Crystals Few None Seen /hpf Urine Bacteria None seen None Seen /hpf Urine Glucose Normal Normal mg/dL Troponin I High Sensitivity 6 7 </=34 ng/L White Blood Count 5.0 4.4-10.8 10^3/uL Red Blood Count 4.52 4.0-5.20 10^6/uL Hemoglobin 11.8 L 12.2-16.2 g/dL Hematocrit 36.0 36.0-46.0 % Mean Corpuscular Volume 79.8 L 80.0-100.0 fL Mean Corpuscular Hemoglobin 26.2 L 28.0-32.0 pg Mean Corpuscular Hemoglobin Concent 32.8 32.0-36.0 g/dL Red Cell Distribution Width 20.7 H 11.8-14.3 % Platelet Count 383 140-450 10^3/uL Mean Platelet Volume 7.4 6.9-10.8 fL Neutrophils (%) (Auto) 40.8 37.0-80.0 % Lymphocytes (%) (Auto) 46.2 10.0-50.0 % Monocytes (%) (Auto) 9.1 0.0-12.0 % Eosinophils (%) (Auto) 3.0 0.0-7.0 % Basophils (%) (Auto) 0.9 0.0-2.0 % Neutrophils # (Auto) 2.0 1.6-8.6 10 ^3/uL Lymphocytes # (Auto) 2.3 0.4-5.4 10 ^3/uL Monocytes # (Auto) 0.5 0-1.3 10 ^3/uL Eosinophils # (Auto) 0.1 0-0.8 10 ^3/uL Basophils # (Auto) 0 0-0.2 10 ^3/uL Nucleated Red Blood Cells 0.0 % Sodium Level 138 136-145 mmol/L Potassium Level 3.6 3.5-5.1 mmol/L Chloride Level 100 98-107 mmol/L Carbon Dioxide Level 29 20-31 mmol/L Anion Gap 9 5-15 Blood Urea Nitrogen 20 9-23 mg/dL Creatinine 0.94 0.550-1.02 mg/dL Glomerular Filtration Rate Calc 60 >90 mL/min BUN/Creatinine Ratio 21.3 H 10.0-20.0 Serum Glucose 122 H 74-106 mg/dL Calcium Level 9.4 8.7-10.4 mg/dL Total Bilirubin 0.3 0.2-1.0 mg/dL Aspartate Amino Transferase (AST) 23 13-40 U/L Alanine Aminotransferase (ALT) 13 7-40 U/L Alkaline Phosphatase 100 46-116 U/L Total Protein 7.2 5.7-8.2 g/dL Albumin 4.5 3.2-4.8 g/dL [place] [id number] Ph: [phone] DIAGNOSTIC IMAGING Diagnostic Imaging Report : [id number] Signed PATIENT: MADHU BAY ACCT: [id number] UNIT: [id number] : 1940 LOC: ER ROOM / BED: / AGE / SEX: 84 / F ADM STATUS: REG ER SERVICE [id number] ORDERING PHYSICIAN: TIGIST SCOTT DO PROCEDURE(s): HWOCT - HEAD WITHOUT CONTRAST REASON: HTN ORDER NUMBER(s): [id number], ACCESSION NUMBER(s): [id number] CLINICAL HISTORY: HTN TECHNIQUE: Helical imaging carried out from skull base to vertex without intravenous contrast. This exam was performed according to our departmental dose optimization program. Up-to-date CT equipment and radiation dose reduction techniques are utilized as appropriate. CTDIVol: 50.87 mGy DLP: 900.81 mGy-cm WID: COMPARISON: CT HEAD WITHOUT CONTRAST on DOS: 10/15/24 FINDINGS: Mild patchy low attenuation in the cerebral white matter consistent with nonspecific white matter disease. The ventricles and subarachnoid spaces are normal in size and configuration. There is no midline shift or mass effect. The marcus white matter interfaces are maintained. The basal cisterns are patent. There is no evidence of acute intracranial hemorrhage or extra-axial fluid collection. The mastoid air cells and visualized paranasal sinuses are well-aerated aside from a moderate-sized fluid level in the left sphenoid sinus with frothy secretions. Prior ocular lens replacement. IMPRESSION: 1. No acute intracranial abnormality. 2. Mild chronic microvascular ischemic change. 3. Moderate sized fluid level in the left sphenoid sinus. Correlate clinically for acute sinusitis. ATED BY: JEWEL NEVAREZ MD DICTATED DATE/TIME: 03/18/252032 SIGNED BY: JEWEL NEVAREZ MD SIGNED DATE/TIME: 03/18/252032 CC: [place] [id number] Ph: [phone] DIAGNOSTIC IMAGING Diagnostic Imaging Report : [id number] Signed PATIENT: MADHU BAY ACCT: [id number] UNIT: [id number] : 1940 LOC: ER ROOM / BED: / AGE / SEX: 84 / F ADM STATUS: REG ER SERVICE [id number] ORDERING PHYSICIAN: TIGIST SCOTT DO PROCEDURE(s): CXRP - CHEST PORTABLE REASON: HTN ORDER NUMBER(s): [id number], ACCESSION NUMBER(s): [id number] INDICATION: HTN TECHNIQUE: Frontal view of the chest. COMPARISON: XY CHEST XRAY 1 VIEW on DOS: 08/30/24, XY CHEST PORTABLE on DOS: 08/27/24, XY CHEST PORTABLE on DOS: 07/10/24, XY CHEST PORTABLE on DOS: 07/05/24, XY CHEST XRAY 1 VIEW on DOS: 03/28/24 FINDINGS: Finding:. The heart and mediastinal contours are grossly unremarkable. There is uncoiling atherosclerotic change thoracic aorta. There is no evidence of pleural disease. The lungs are clear. The bony structures of the chest are intact without fracture. IMPRESSION: 1. No evidence of acute disease. ATED BY: MAVIS FINCH MD DICTATED DATE/TIME: 03/18/251941 SIGNED BY: MAVIS FINCH MD SIGNED DATE/TIME: 03/18/251941 CC: Time of 1ST Reevaluation: 18:45 Reevaluation 1ST: Unchanged Time of 2ND Reevaluation: 22:08 Reevaluation 2ND: Resolved Patient Education/Counseling: Diagnosis, Treatment Family Education/Counseling: Diagnosis, Treatment Comments Patient presented with the above HPI.--hypertension----workup was initiated. patient was found with the above mentioned diagnosis. the following medications were ordered: please refer to order lists of meds and tests obtained by myself Dr. Scott. Patient ED course and VS have been stabilized. Patient has been reassessed in the ED and remained in a stable condition. Pertinent incidental findings were discussed with the patient and/or family. Patient/family voices understanding and is agreeable with plan. Patient has been observed in the ED adequate length of time to insure improvement/stability. Escalation of care considered: Consideration of escalation to observation or admission Patient's symptom resolved spontaneously without intervention. Patient was DISCHARGED home in a stable condition. All the reports of any imaging studies that were ordered by myself were reviewed by myself. Departure 1 Departure Time of Disposition: 21:57 Impression: Primary Impression: Hypertensive urgency Disposition: 01 HOME / SELF CARE / HOMELESS Condition: Stable Additional Instructions: Additional instructions: You MUST follow-up with your primary care/family doctor in 1 to 2 days. If you are unable to see your primary care/family doctor, please return to our emergency room for re-assessment and re-evaluation in 1 to 2 days. Return to the emergency room here in our facility or to the nearest ER [facility] if your symptoms change or worsen. CONSULTATIONS: you MUST Follow-up for consultation as soon as possible with: cardiology in 1-2 days. Please call for appointment. You MUST call the consultants office yourself to make an appointment. You may need to arrange that through your insurance and/or your primary/family doctor. If you are unable to see the production support consultant in 1 to 2 days, you must return to our emergency room (or any other ER of your choice) for re-assessment and re- evaluation. Adequate fluid hydration. Monitoring blood pressure at home at least 3 times a day. Discharged With: Self, Relative Critical Care Note Critical Care Time?: No Heart Score Heart Score: Heart Score Response (Comments) Value History Slightly Suspicious 0 EKG Normal 0 Age >65 2 Risk Factors >3 or Hx ASHD 2 Troponin Normal limit 0 Total 4 I personally scribed for TIGIST SCOTT DO ([email or web address]) on 03/18/25 at 18:57. Electronically submitted by Tang Marquez ([email or web address]). I personally scribed for TIGIST SCOTT DO ([email or web address]) on 03/19/25 at 02:32. Electronically submitted by Tang Marquez ([email or web address]). TIGIST SCOTT DO March 18, 2025 18:57
[2025-03-18 19:26] LABS: Basophils # (auto) 0 10 ^3/uL (0-0.2); Lymphocytes # (auto) 2.3 10 ^3/uL (0.4-5.4); Monocytes # (auto) 0.5 10 ^3/uL (0-1.3)
[2025-03-18 19:27] LABS: Basophils % (auto) 0.9 % (0.0-2.0); Eosinophils # (auto) 0.1 10 ^3/uL (0-0.8); Hemoglobin 11.8 g/dL (12.2-16.2); Lymphocytes % (auto) 46.2 % (10.0-50.0); Mean Corpuscular Hemoglobin 26.2 pg (28.0-32.0); Mean Corpuscular Hgb Conc. 32.8 g/dL (32.0-36.0); Mean Corpuscular Volume 79.8 fL (80.0-100.0); Monocytes % (auto) 9.1 % (0.0-12.0); Neutrophils % (auto) 40.8 % (37.0-80.0); Platelet Count (auto) 383 10^3/uL (140-450); Red Blood Cells 4.52 10^6/uL (4.0-5.20)
[2025-03-18 19:32] LABS: Alanine Aminotransferase 13 U/L (7-40); Albumin 4.5 g/dL (3.2-4.8); Alkaline Phosphatase 100 U/L (46-116); Anion Gap 9 (5-15); Aspartate Aminotransferase 23 U/L (13-40); Bilirubin, Total 0.3 mg/dL (0.2-1.0); Blood Urea Nitrogen 20 mg/dL (9-23); Calcium 9.4 mg/dL (8.7-10.4); Carbon Dioxide 29 mmol/L (20-31); Chloride 100 mmol/L (98-107); Potassium 3.6 mmol/L (3.5-5.1); Red Cell Distribution Width 20.7 % (11.8-14.3); Sodium 138 mmol/L (136-145); Total Protein 7.2 g/dL (5.7-8.2)
[2025-03-18 19:36] LABS: BUN/Creatinine Ratio 21.3 (10.0-20.0)
[2025-03-18 19:40] LABS: Glucose 122 mg/dL (74-106)
--- NOTE | 2025-03-18 19:44 | DVH ---
INDICATION: HTN TECHNIQUE: Frontal view of the chest. COMPARISON: XY CHEST XRAY 1 VIEW on DOS: 08/30/24, XY CHEST PORTABLE on DOS: 08/27/24, XY CHEST PORTABL E on DOS: 07/10/24, XY CHEST PORTABLE on DOS: 07/05/24, XY CHEST XRAY 1 VIEW on DOS: 03/28/24 FINDINGS: Finding:. The heart and mediastinal contours are grossly unremarkable. There is uncoiling atheroscler otic change thoracic aorta. There is no evidence of pleural disease. The lungs are clear. The bony structures of the chest are intact without fracture. IMPRESSION: 1. No evidence of acute disease.
--- NOTE | 2025-03-18 20:36 | DVH ---
CLINICAL HISTORY: HTN TECHNIQUE: Helical imaging carried out from skull base to vertex without intravenous contrast. This e xam was performed according to our departmental dose optimization program. Up-to-date CT equipment an d radiation dose reduction techniques are utilized as appropriate. CTDIVol: 50.87 mGy DLP: 900.81 mGy-cm WID: COMPARISON: CT HEAD WITHOUT CONTRAST on DOS: 10/15/24 FINDINGS: Mild patchy low attenuation in the cerebral white matter consistent with nonspecific white matter dis ease. The ventricles and subarachnoid spaces are normal in size and configuration. There is no midline paul ft or mass effect. The marcus white matter interfaces are maintained. The basal cisterns are patent. Th ere is no evidence of acute intracranial hemorrhage or extra-axial fluid collection. The mastoid air cells and visualized paranasal sinuses are well-aerated aside from a moderate-sized fluid level in th e left sphenoid sinus with frothy secretions. Prior ocular lens replacement. IMPRESSION: 1. No acute intracranial abnormality. 2. Mild chronic microvascular ischemic change. 3. Moderate sized fluid level in the left sphenoid sinus. Correlate clinically for acute sinusitis.
[2025-03-18 20:57] LABS: Urine Bacteria None Seen /hpf (None Seen)
[2025-03-18 21:13] LABS: Urine Amorphous Crystal FEW /hpf (None Seen); Urine Blood Negative /uL (Negative); Urine Clarity Clear (Clear); Urine Color Colorless (Yellow); Urine Protein, UAD Negative (Negative); Urine Specific Gravity 1.007 (1.001-1.035); Urine Squamous Epithelial Cell FEW /hpf (<5); Urine Urobilinogen Normal (Negative); Urine WBC 1 /HPF (0-5)
[2025-03-18 21:29] VITALS: BP 134/75; PULSE 76; RESP 18; TEMP 98; O2SAT 96
--- NOTE | 2025-03-20 09:45 | ECG ---
[facility] Test Date: 2025-03-18 Test Time: 19:00:04 Pat Name: MADHU BAY Department: ER Room: Gender: F Mobility Manager: MAKAYLA : 1940 Requested By: TIGIST SCOTT Order Number: [id number] Reading MD: Measurements Intervals [place] Rate: 82 P: 32 IN: 185 QRS: -23 QRSD: 99 T: 0 QT: 402 QTc: 470 Interpretive Statements Sinus rhythm Left ventricular hypertrophy Borderline T abnormalities, inferior leads Please click the below link to view image of tracing.
== END 2025-03-18 22:34 | disposition home or self-care (01) ==
LOC: ER 18:31
DX: I16.0 Hypertensive urgency (principal); I10 Essential (primary) hypertension; K21.9 Gastro-esophageal reflux disease without esophagitis; I21.9 Acute myocardial infarction, unspecified; E78.5 Hyperlipidemia, unspecified; Z90.49 Acquired absence of other specified parts of digestive tract; Z90.710 Acquired absence of both cervix and uterus; Z90.89 Acquired absence of other organs; Z79.899 Other long term (current) drug therapy; Z88.5 Allergy status to narcotic agent; Z88.6 Allergy status to analgesic agent; Z88.8 Allergy status to other drugs, medicaments and biological substances
CPT/HCPCS: 36415; 70450; 71045; 80053; 81001; 84484; 85025; 93005

== ENCOUNTER 2025-04-28 10:19 | Outpatient (CLI) | payer OTHER | END 2025-04-28 17:00 | disposition home or self-care (01) | LOC: LAB 10:19 | PROVIDERS: ATTEND Internal Medicine | DX: I10 Essential (primary) hypertension (principal) | CPT/HCPCS: 82088; 83835 ==

== ENCOUNTER → 2025-05-02 | Outpatient (CLI) | payer MEDICARE, OTHER ==
[~2025-05-02] VITALS: Ht 152.4 cm; Wt 59.9 kg
[2025-05-02 10:27] LABS: Urine Amorphous Crystal FEW /hpf (None Seen); Urine Protein, UAD Negative (Negative)
[2025-05-02 10:35] LABS: Hematocrit 37.3 % (36.0-46.0); Hemoglobin 12.3 g/dL (12.2-16.2); Mean Corpuscular Hemoglobin 28.5 pg (28.0-32.0); Mean Corpuscular Volume 86.3 fL (80.0-100.0); Nucleated Red Blood Cells % 0.0 %
[2025-05-02 10:42] LABS: Alkaline Phosphatase 81 U/L (46-116); Anion Gap 8 (5-15); BUN/Creatinine Ratio 31.9 (10.0-20.0); Calcium 9.0 mg/dL (8.7-10.4); Carbon Dioxide 27 mmol/L (20-31); Chloride 103 mmol/L (98-107); Glucose 92 mg/dL (74-106); INR 0.97 (0.9-1.15); Partial Thromboplastin Time 25.6 SEC (24.5-34.5); Potassium 4.4 mmol/L (3.5-5.1); Prothrombin Time 10.3 sec (9.3-11.8); Sodium 138 mmol/L (136-145); Total Protein 6.9 g/dL (5.7-8.2)
[2025-05-02 10:43] LABS: Alanine Aminotransferase < 9 U/L (7-40); Albumin 4.4 g/dL (3.2-4.8); Bilirubin, Total 0.4 mg/dL (0.2-1.0); Blood Urea Nitrogen 29 mg/dL (9-23)
== END | disposition home or self-care (01) ==
LOC: LAB 09:59 → EDSTATUS 05-05 09:15
PROVIDERS: ATTEND Orthopaedic Surgery Adult Reconstructive Orthopaedic Surgery
DX: M17.0 Bilateral primary osteoarthritis of knee (principal); Z53.8 Procedure and treatment not carried out for other reasons; I12.9 Hypertensive chronic kidney disease with stage 1 through stage 4 chronic kidney disease, or unspecified chronic kidney disease; N18.30 Chronic kidney disease, stage 3 unspecified; G20.C Parkinsonism, unspecified; K21.9 Gastro-esophageal reflux disease without esophagitis; F32.9 Major depressive disorder, single episode, unspecified; Z90.49 Acquired absence of other specified parts of digestive tract; Z90.710 Acquired absence of both cervix and uterus; Z79.899 Other long term (current) drug therapy; M70.61 Trochanteric bursitis, right hip
CPT/HCPCS: 36415; 80053; 81001; 85025; 85610; 85730; 86850; 86900; 86901

== ENCOUNTER → 2025-06-13 | Outpatient (CLI) | payer OTHER ==
[2025-06-13 11:51] LABS: Benzodiazephine Screen, Urine Neg (NEGATIVE)
[2025-06-13 12:14] LABS: Amphetamine Screen, Urine Neg (NEGATIVE); Barbiturate Scree,Urine Neg (NEGATIVE); Cannabinoid Screen, Urine Neg (NEGATIVE); Cocaine Screen, Urine Neg (NEGATIVE); Opiate Scree,Urine Neg (NEGATIVE); Phencyclidine Screen, Urine Neg (NEGATIVE)
== END | disposition home or self-care (01) ==
LOC: LAB 10:26
PROVIDERS: ATTEND Psychiatry & Neurology Neurology
DX: F41.9 Anxiety disorder, unspecified (principal); Z79.899 Other long term (current) drug therapy
CPT/HCPCS: 80307

== ENCOUNTER 2025-06-15 11:05 | Emergency (ER) | payer OTHER ==
[~2025-06-15] VITALS: Ht 154.9 cm; Wt 60.0 kg
[2025-06-15 11:13] VITALS: TEMP 98
--- NOTE | 2025-06-15 11:45 | ED.PDOC ---
History of Present Illness HPI Comments 85 y.o female BIB daughter, presents to the ED for an evaluation of multiple symptoms that include left sided chest tightness, foggy mindset, cold sweats, and dizziness that started about a week ago. Daughter took patient to urgent care today for possible UTI infection, no dysuria, hematuria, or UA retention r eported, UA came back normal no UTI noted and was sent to the ED for further evaluation given multiple ongoing symptoms. Additionally, daughter reports patients BP has been reading in the 190-200's systolic however has been taking all her medications. Patient is alert and oriented x 4 on assessment. Patient denies any other symptoms at this time. She has a history of HTN, arthritis and Parkinson's disease. Chief Complaint: Dizziness Time Seen by MD: 11:55 Primary Care Provider: UNKNOWN Reviewed Notes: Medications, Allergies Allergies: Coded Allergies: Albuterol (Verified Allergy, Severe, 08/31/24) severe sensitivity; SVT FR=308's Elemental Sulfur (Verified Allergy, Mild, Abdominal pain, 04/27/22) Hydromorphone (Verified Allergy, Mild, Itching, 03/29/24) Morphine (Verified Allergy, Unknown, 07/05/24) Itching, and hallucinates Aspirin (Verified Adverse Reaction, Mild, 07/05/24) Doesnt take due to stomach issues Uncoded Allergies: SULFER (Allergy, Unknown, 03/18/25) Home Meds Active Scripts Cyclobenzaprine Hcl (Cyclobenzaprine Hcl) 5 Mg Tab, 1 TAB PO TID for 30 Days, #90 TAB 0 Refills Prov:JAZMYNE WHITE 10/16/24 Tramadol HCl (Tramadol HCl) 50 Mg Tab, 50 MG PO TID for 3 Days, #9 TAB Prov:HUSSEIN AC MD 10/16/24 Levalbuterol Tartrate (Xopenex Hfa) 45 Mcg/Act Aer, 45 MCG IN PRN PRN, #1 AER Prov:HUSSEIN AC MD 08/31/24 Fluticasone Propionate (Nasal) (Flonase Allergy Relief) 50 Mcg/Act Spr, 50 MCG NA BID for 30 Days, #1 SPRAY Prov:HUSSEIN AC MD 08/31/24 Cefpodoxime Proxetil (Cefpodoxime Proxetil) 200 Mg Tab, 200 MG PO BID for 5 Days, #10 TAB Prov:HUSSEIN CA MD 08/31/24 Reported Medications Carbidopa-Levodopa (Carbidopa/Levodopa Odt 25-250 mg) 1 Tab Tab, 0.5 TAB PO DAILY@LUNCH, TAB 10/16/24 Carbidopa-Levodopa (Carbidopa/Levodopa Odt 25-250 mg) 1 Tab Tab, 1 TAB PO BID, TAB 10/16/24 Docusate Sodium (Colace) 100 Mg Cap, 2 CAP PO PRN for FOR CONSTIPATION, #30 CAP 10/16/24 Pantoprazole Sodium Sesquihydr (Protonix) 40 Mg Tab, 1 TAB PO DAILY for 90 Days, #90 08/29/24 Amlodipine Besylate (Amlodipine Besylate) 5 Mg Tab, 1 TAB PO DAILY for 90 Days, #90 08/29/24 Lisinopril (Lisinopril) 40 Mg Tab, 1 TAB PO DAILY for 100 Days, #100 09/16/19 Information Source: Patient, Relative Mode of Arrival: Wheelchair Severity: Moderate Timing: Weeks (1) Duration: Since onset Past Medical History PAST MEDICAL HISTORY: GERD, High Lipids, HTN, [place] Surgical History: Cholecystectomy, Hysterectomy, Tonsillectomy OPEN HEARTH MELTER History: No Pertinent OPEN HEARTH MELTER History Family History Family History: Family hx of DM, Family hx of Cancer, Family hx of heart cielo, Family hx of HTN Social History Smoker: Non-Smoker Alcohol: Denies ETOH Use Drugs: Denies Drug Use Lives In: Home Constitutional: reports: sweats, weakness; denies: chills, diaphoresis, fatigue, fever, malaise, others EENTM: denies: blurred vision, double vision, ear bleeding, ear discharge, ear drainage, ear pain, ear ringing, eye pain, eye redness, hearing loss, mouth pain, mouth swelling, nasal discharge, nose bleeding, nose congestion, nose pain, photophobia, tearing, throat pain, throat swelling, voice changes, others Respiratory: denies: cough, hemoptysis, orthopnea, SOB at rest, shortness of breath, SOB with excertion, stridor, wheezing, others Cardiovascular: denies: chest pain, dizzy spells, diaphoresis, Dyspnea on exertion, edema, irregular heart beat, left arm pain, lightheadedness, palpitations, PND, syncope, others Gastrointestinal: denies: abdomen distended, abdominal pain, blood streaked bowels, constipated, diarrhea, dysphagia, difficulty swallowing, hematemesis, melena, nausea, poor appetite, poor fluid intake, rectal bleeding, rectal pain, vomiting, others Genitourinary: denies: abnormal vagina bleeding, burning, dyspareunia, dysuria, flank pain, frequency, hematuria, incontinence, pain, , vagina discharge, urgency, others Neurological: reports: dizziness; denies: fainting, headache, left sided numbness, left sided weakness, numbness, paresthesia, pre-existing deficit, right sided numbness, right sided weakness, seizure, speech problems, tingling, tremors, weakness, others Musculoskeletal: denies: back pain, gout, joint pain, joint swelling, muscle pain, muscle stiffness, neck pain, others Integumetry: denies: bruises, change in color, change in hair/nails, dryness, laceration, lesions, lumps, rash, wounds, others Allergic/Immunocompromised: denies: Difficulty Healing, Frequent Infections, Hives, Itching, others Hematologic/Lymphatic: denies: anemia, blood clots, easy bleeding, easy bruising, swollen glands, others Endocrine: denies: excessive hunger, excessive sweating, excessive thirst, excessive urination, flushing, intolerance to cold, intolerance to heat, unexplained weight gain, unexplained weight loss, others Psychiatric: denies: anxiety, bipolar disorder, depression, hopeless, panic disorder, schizophrenia, sleepless, suicidal, others All Other Systems: Reviewed and Negative Physical Exam General Appearance: Moderate Distress HEENT: Normal ENT Inspection Neck: Normal Inspection Respiratory: No Accessory Muscle Use, No Respiratory Distress, Normal Breath Sounds Cardiovascular: Normal Peripheral Pulses, Regular Rate/Rhythm Breast Exam: Deferred Gastrointestinal: No Organomegaly, Non Tender, No Pulsatile Mass, Normal Bowel Sounds, Soft Genitalia: Deferred Pelvic: Deferred Rectal: Deferred Extremities: Normal inspection, Non-tender, No pedal edema Musculoskeletal : Apperance: Normal Neurologic: Alert, freight and passenger agent II-XII nml as Tested, No Motor Deficits, Normal Affect, Normal Mood, No Sensory Deficits Cerebellar Function: Normal Reflexes: NOT DONE Skin: Dry, Normal Color, Warm Lymphatic: No Adenopathy Was a procedure done? Was a procedure done?: No Differential Dx Considerations may include: Viral syndrome, electrolyte imbalance, vertigo X-Ray, Labs, Meds, VS Vital Signs Date Time Temp Pulse Resp B/P (MAP) Pulse Ox O2 Delivery O2 Flow Rate FiO2 06/15/25 11:13 98.0 177/92 (120) 98.0 06/15/25 11:10 70 06/15/25 11:06 98.0 67 18 187/97 94 98.0 Lab Test 06/15/25 13:08 06/15/25 12:00 06/15/25 11:28 Range/Units Troponin I High Sensitivity 5 5 </=34 ng/L White Blood Count 8.4 4.4-10.8 10^3/uL Red Blood Count 4.48 4.0-5.20 10^6/uL Hemoglobin 13.8 12.2-16.2 g/dL Hematocrit 41.1 36.0-46.0 % Mean Corpuscular Volume 91.7 80.0-100.0 fL Mean Corpuscular Hemoglobin 30.8 28.0-32.0 pg Mean Corpuscular Hemoglobin Concent 33.6 32.0-36.0 g/dL Red Cell Distribution Width 17.6 H 11.8-14.3 % Platelet Count 334 140-450 10^3/uL Mean Platelet Volume 7.5 6.9-10.8 fL Neutrophils (%) (Auto) 53.6 37.0-80.0 % Lymphocytes (%) (Auto) 36.7 10.0-50.0 % Monocytes (%) (Auto) 8.7 0.0-12.0 % Eosinophils (%) (Auto) 0.4 0.0-7.0 % Basophils (%) (Auto) 0.6 0.0-2.0 % Neutrophils # (Auto) 4.5 1.6-8.6 10 ^3/uL Lymphocytes # (Auto) 3.1 0.4-5.4 10 ^3/uL Monocytes # (Auto) 0.7 0-1.3 10 ^3/uL Eosinophils # (Auto) 0 0-0.8 10 ^3/uL Basophils # (Auto) 0 0-0.2 10 ^3/uL Nucleated Red Blood Cells 0.1 % Prothrombin Time 9.9 9.3-11.8 sec Prothrombin Time INR 0.93 0.9-1.15 Activated Partial Thromboplast Time 24.9 24.5-34.5 SEC D-Dimer, Quantitative 1.21 H 0.0-0.49 mg/L FEU Sodium Level 135 L 136-145 mmol/L Potassium Level 3.7 3.5-5.1 mmol/L Chloride Level 98 98-107 mmol/L Carbon Dioxide Level 28 20-31 mmol/L Anion Gap 9 5-15 Blood Urea Nitrogen 29 H 9-23 mg/dL Creatinine 0.94 0.550-1.02 mg/dL Glomerular Filtration Rate Calc 60 >90 mL/min BUN/Creatinine Ratio 30.9 H 10.0-20.0 Serum Glucose 100 74-106 mg/dL Calcium Level 9.3 8.7-10.4 mg/dL Magnesium Level 1.8 1.6-2.6 mg/dL Total Bilirubin 0.5 0.2-1.0 mg/dL Aspartate Amino Transferase (AST) 23 13-40 U/L Alanine Aminotransferase (ALT) < 9 7-40 U/L Alkaline Phosphatase 88 46-116 U/L Total Protein 7.4 5.7-8.2 g/dL Albumin 4.7 3.2-4.8 g/dL Urine Color Light-yellow Yellow Urine Clarity Clear Clear Urine pH 7.5 5.0-9.0 Urine Specific [place] 1.017 1.001-1.035 Urine Protein Negative Negative Urine Ketones Negative Negative Urine Blood Negative Negative /uL Urine Nitrite Negative Negative Urine Bilirubin Negative Negative Urine Urobilinogen Normal Negative mg/dL Urine Leukocyte Esterase Negative Negative /uL Urine RBC 2 0 - 4 /hpf Urine Microscopic WBC < 1 0-5 /HPF Urine Squamous Epithelial Cells None seen <5 /hpf Urine Bacteria None seen None Seen /hpf Urine Glucose Normal Normal mg/dL Urine Opiates Screen Neg NEGATIVE Urine Fentanyl Screen Neg NEGATIVE Urine Barbiturates Screen Neg NEGATIVE Urine Phencyclidine Screen Neg NEGATIVE Urine Amphetamines Screen Neg NEGATIVE Urine Benzodiazepines Screen Neg NEGATIVE Urine Cocaine Screen Neg NEGATIVE Urine Cannabinoids Screen Neg NEGATIVE X-Ray, Labs, Meds, VS Comment This 85-year-old female past medical history stemming from Parkinson's was brought in by family secondary to increasing weakness. Here, workup was benign. The patient is noted to have CKD which is stable. The supervisor case loading from her insurance will reached out to her tomorrow for outpatient follow up. Patient will be discharged home after being provided IV fluid bolus. He has noted, the patient has a GCS of 15. She is awake and alert and oriented x4. Time of 1ST Reevaluation: 12:11 Reevaluation 1ST: Unchanged Time of 2ND Reevaluation: 15:02 Reevaluation 2ND: Unchanged Consultation: PCP Patient Education/Counseling: Diagnosis, Treatment, Prognosis Family Education/Counseling: No Family Present SEPSIS Sepsis Screen Date sepsis recognized/suspect: Jun 15, 2025 Time Sepsis recognized/suspect: 1111 Recent Procedure: No On Antibiotic Therapy: No Respiratory Rate >20: No Heart Rate >90: No Temp<36 C (96.8 F) or >38.3 C: No SBP <90 or MAP <65 mmHG: No New Acute Mental Status Change: No Is the patient on CPAP, BIPAP,: No Physician Orders Electrocardigram (06/15/25 11:13) Electrocardigram (06/15/25 14:13) Chest Portable (06/15/25 11:15) Pls Schedule Appt With [facility] (06/15/25 11:24) Vital Signs Date Time Temp Pulse Resp B/P (MAP) Pulse Ox O2 Delivery O2 Flow Rate FiO2 06/15/25 11:13 98.0 177/92 (120) 98.0 06/15/25 11:10 70 06/15/25 11:06 98.0 67 18 187/97 94 98.0 Laboratory Tests Test 06/15/25 12:00 White Blood Count 8.4 10^3/uL (4.4-10.8) Departure 1 Departure Time of Disposition: 15:02 Impression: Primary Impression: CKD (chronic kidney disease) Additional Impression: Weakness Disposition: 01 HOME / SELF CARE / HOMELESS Condition: Good Discharged With: Relative (daughter) Critical Care Note Critical Care Time?: No Stability Stability form required: No Heart Score Heart Score: Heart Score Response (Comments) Value History Slightly Suspicious 0 EKG N/A 0 Age N/A 0 Risk Factors N/A 0 Troponin N/A 0 Total 0 I personally scribed for BARBARA BREWER MD ([email or web address]) on 06/15/25 at 11:45. Electronically submitted by Gail Calvo ([facility]). I personally scribed for BARBARA BREWER MD ([email or web address]) on 8/24/25 at 12:12. Electronically submitted by Gail Calvo ([facility]). BARBARA BREWER MD Jun 15, 2025 11:45
--- NOTE | 2025-06-15 11:46 | DVH ---
CHEST RADIOGRAPH Indication: chest pain Technique: Single frontal view of the chest was obtained COMPARISON: XY CHEST PORTABLE on DOS: 03/18/25, XY CHEST XRAY 1 VIEW on DOS: 08/30/24, XY CHEST PORTABL E on DOS: 08/27/24, XY CHEST PORTABLE on DOS: 07/10/24, XY CHEST TWO VIEWS ROUTINE on DOS: 07/09/24 FINDINGS: Lines and Tubes: None Lungs: Clear Pleura: No effusion. No pneumothorax. Cardiomediastinal contours: Unremarkable Bones: Surgical fixation hardware is partially visualized in the lumbar spine IMPRESSION: 1. No acute disease.
[2025-06-15 12:21] LABS: Hematocrit 41.1 % (36.0-46.0); Hemoglobin 13.8 g/dL (12.2-16.2); Mean Corpuscular Hemoglobin 30.8 pg (28.0-32.0); Mean Corpuscular Volume 91.7 fL (80.0-100.0); Nucleated Red Blood Cells % 0.1 %
[2025-06-15 12:40] LABS: INR 0.93 (0.9-1.15); Partial Thromboplastin Time 24.9 SEC (24.5-34.5); Prothrombin Time 9.9 sec (9.3-11.8)
[2025-06-15 12:45] LABS: Albumin 4.7 g/dL (3.2-4.8); Alkaline Phosphatase 88 U/L (46-116); Anion Gap 9 (5-15); BUN/Creatinine Ratio 30.9 (10.0-20.0); Bilirubin, Total 0.5 mg/dL (0.2-1.0); Blood Urea Nitrogen 29 mg/dL (9-23); Calcium 9.3 mg/dL (8.7-10.4); Carbon Dioxide 28 mmol/L (20-31); Chloride 98 mmol/L (98-107); Glucose 100 mg/dL (74-106); Magnesium 1.8 mg/dL (1.6-2.6); Potassium 3.7 mmol/L (3.5-5.1); Sodium 135 mmol/L (136-145); Total Protein 7.4 g/dL (5.7-8.2)
[2025-06-15 12:46] LABS: Alanine Aminotransferase < 9 U/L (7-40)
[2025-06-15 12:46] LABS: Urine Protein, UAD Negative (Negative)
[2025-06-15 12:55] LABS: Amphetamine Screen, Urine Neg (NEGATIVE); Barbiturate Scree,Urine Neg (NEGATIVE); Benzodiazephine Screen, Urine Neg (NEGATIVE); Cannabinoid Screen, Urine Neg (NEGATIVE); Cocaine Screen, Urine Neg (NEGATIVE); Opiate Scree,Urine Neg (NEGATIVE); Phencyclidine Screen, Urine Neg (NEGATIVE)
[2025-06-15] MEDS: SODIUM CHLORIDE 0.9% 1,000 ML IV ONE (15:31)
[2025-06-15 15:34] VITALS: BP 172/88; PULSE 74; RESP 17; O2SAT 96
--- NOTE | 2025-06-16 09:19 | ECG ---
[facility] Test Date: 2025-06-15 Test Time: 11:10:51 Pat Name: MADHU BAY Department: ED Room: Gender: F Daytime Caregiver: KARLIE : 1940 Requested By: BARBARA BREWER Order Number: [id number] Reading MD: Measurements Intervals [place] Rate: 70 P: 64 PA: 181 QRS: 22 QRSD: 97 T: 50 QT: 407 QTc: 440 Interpretive Statements Sinus rhythm Please click the below link to view image of tracing.
== END 2025-06-15 15:37 | disposition home or self-care (01) ==
LOC: ER 11:05
DX: I12.9 Hypertensive chronic kidney disease with stage 1 through stage 4 chronic kidney disease, or unspecified chronic kidney disease (principal); N18.9 Chronic kidney disease, unspecified; R53.1 Weakness; K21.9 Gastro-esophageal reflux disease without esophagitis; E78.5 Hyperlipidemia, unspecified; Z79.899 Other long term (current) drug therapy; Z90.49 Acquired absence of other specified parts of digestive tract; Z90.710 Acquired absence of both cervix and uterus; Z88.5 Allergy status to narcotic agent; Z88.6 Allergy status to analgesic agent; Z88.8 Allergy status to other drugs, medicaments and biological substances
CPT/HCPCS: 36415; 71045; 80053; 80307; 81001; 82947; 83735; 84484; 85025; 85379; 85610; 85730; 93005

== ENCOUNTER → 2025-07-30 | Outpatient (CLI) | payer OTHER ==
[2025-07-30 14:31] LABS: Hematocrit 39.1 % (36.0-46.0); Hemoglobin 13.3 g/dL (12.2-16.2); Mean Corpuscular Hemoglobin 32.2 pg (28.0-32.0); Mean Corpuscular Volume 94.4 fL (80.0-100.0); Nucleated Red Blood Cells % 0.0 %
[2025-07-30 15:07] LABS: Albumin 4.2 g/dL (3.2-4.8); Alkaline Phosphatase 80 U/L (46-116); Anion Gap 11 (5-15); BUN/Creatinine Ratio 22.9 (10.0-20.0); Bilirubin, Total 0.5 mg/dL (0.2-1.0); Calcium 9.3 mg/dL (8.7-10.4); Carbon Dioxide 28 mmol/L (20-31); Chloride 99 mmol/L (98-107); Creatine Kinase IFCC 65 U/L (34-145); Potassium 4.1 mmol/L (3.5-5.1); Sodium 138 mmol/L (136-145); Total Protein 7.2 g/dL (5.7-8.2)
[2025-07-30 15:14] LABS: Blood Urea Nitrogen 24 mg/dL (9-23); Glucose 109 mg/dL (74-106)
[2025-07-30 15:15] LABS: Alanine Aminotransferase < 9 U/L (7-40)
== END | disposition home or self-care (01) ==
LOC: LAB 13:52
PROVIDERS: ATTEND Internal Medicine
DX: R07.89 Other chest pain (principal)
CPT/HCPCS: 36415; 80053; 82550; 84484; 85025